=== PATIENT | male | born 1970 | race Caucasian/White ===

== ENCOUNTER → 2016-09-20 | Outpatient (REF) | payer MEDICAID ==
[~2016-09-20] MED LIST: ASPI81CH PO; GUAI1TAB PO; LISI-538 PO; MUCI600T34 PO; NAPR500T PO; NAPR500T2 PO; QUET1TAB11 PO; SERT50TA PO; SIMV40TA2 PO; TRAZ300T2 PO; ZOLO100T PO; cogentin PO
== END ==
LOC: M LAB REF 13:03
PROVIDERS: ATTEND Nurse Practitioner Family
DX: R35.0 Frequency of micturition (principal)

== ENCOUNTER → 2016-09-28 | Outpatient (REF) | payer MEDICAID ==
[2016-09-28 13:25] LABS: MEAN CORPUSCULAR HEMOGLOBIN 30.5 pg (27.0-33.0); MEAN CORPUSCULAR HGB CONC 34.2 g/dl (32.0-36.5); MEAN CORPUSCULAR VOLUME 89.3 fl (80.0-96.0); RED CELL DISTRIBUTION WIDTH 12.6 % (11.5-14.5); WHITE BLOOD COUNT 7.3 K/mm3 (4.0-10.0)
[2016-09-28 13:46] LABS: ALBUMIN 3.8 GM/DL (3.2-5.2); ALBUMIN/GLOBULIN RATIO 1.23 (1.00-1.93); ALKALINE PHOSPHATASE 89 U/L (45-117); ALT/SGPT 29 U/L (12-78); ANION GAP 7 MEQ/L (8-16); AST/SGOT 13 U/L (15-37); BILIRUBIN,TOTAL 0.3 MG/DL (0.2-1.0); BLOOD UREA NITROGEN 17 MG/DL (7-18); CALCIUM LEVEL 9.1 MG/DL (8.5-10.1); CARBON DIOXIDE LEVEL 26 MEQ/L (21-32); CHLORIDE LEVEL 106 MEQ/L (98-107); CHOLESTEROL LEVEL 143 MG/DL (<200); CREATININE FOR GFR 0.95 MG/DL (0.70-1.30); GLOMERULAR FILTRATION RATE > 60.0 (>60); GLUCOSE, FASTING 87 MG/DL (70-105); POTASSIUM SERUM 4.4 MEQ/L (3.5-5.1); SODIUM LEVEL 139 MEQ/L (136-145); TOTAL PROTEIN 6.9 GM/DL (6.4-8.2); TRIGLYCERIDES LEVEL 238 MG/DL (<150)
== END ==
LOC: M LABDRAWC 12:02
PROVIDERS: ATTEND Nurse Practitioner Family
DX: R35.0 Frequency of micturition (principal); R63.5 Abnormal weight gain; R51 Headache; E55.9 Vitamin D deficiency, unspecified; Z11.3 Encounter for screening for infections with a predominantly sexual mode of transmission
CPT/HCPCS: 36415; 80053; 80061; 82306; 84443; 85027; 86780; 86803; 87086; 87491; 87591; 87899; G0103

== ENCOUNTER → 2017-01-16 | Outpatient (REF) | payer OTHER ==
[~2017-01-16] MED LIST changes: -MUCI600T34 PO; +MUCI600T37 PO; -NAPR500T2 PO; +NAPR500T3 PO; -QUET1TAB11 PO; +QUET400T PO
== END ==
LOC: M LABDRAWC 11:22
PROVIDERS: ATTEND Nurse Practitioner Psychiatric/Mental Health
DX: F20.0 Paranoid schizophrenia (principal); Z79.899 Other long term (current) drug therapy

== ENCOUNTER → 2017-09-26 | Outpatient (REF) | payer OTHER, MEDICAID ==
[2017-09-26 17:16] LABS: BLOOD UREA NITROGEN 17 MG/DL (7-18); CREATININE FOR GFR 0.86 MG/DL (0.70-1.30); GLOMERULAR FILTRATION RATE > 60.0 (>60); GLUCOSE, FASTING 74 MG/DL (70-100)
[2017-09-26 17:17] LABS: ALBUMIN 4.1 GM/DL (3.2-5.2); ALBUMIN/GLOBULIN RATIO 1.28 (1.00-1.93); ALKALINE PHOSPHATASE 89 U/L (45-117); ALT/SGPT 32 U/L (12-78); ANION GAP 8 MEQ/L (8-16); AST/SGOT 21 U/L (7-37); BILIRUBIN,TOTAL 0.4 MG/DL (0.2-1.0); CALCIUM LEVEL 9.2 MG/DL (8.5-10.1); CARBON DIOXIDE LEVEL 27 MEQ/L (21-32); CHLORIDE LEVEL 106 MEQ/L (98-107); CHOLESTEROL LEVEL 141 MG/DL (<200); HDL CHOLESTEROL 30 MG/DL (>40); LDL CHOLESTEROL 61.4 MG/DL (<100); NON-HDL-C 111 MG/DL; POTASSIUM SERUM 4.2 MEQ/L (3.5-5.1); SODIUM LEVEL 141 MEQ/L (136-145); TOTAL PROTEIN 7.3 GM/DL (6.4-8.2); TRIGLYCERIDES LEVEL 248 MG/DL (<150)
[2017-09-26 17:22] LABS: ESTIMATED AVERAGE GLUCOSE 114 MG/DL (60-110); HEMOGLOBIN A1c 5.6 %
== END ==
LOC: M LAB REF 16:24
DX: E78.5 Hyperlipidemia, unspecified (principal); I10 Essential (primary) hypertension

== ENCOUNTER → 2018-06-30 | Outpatient (CLI) | payer MEDICAID, OTHER ==
[~2018-06-30] MED LIST changes: +NAPR-50 PO; +NAPR-885 PO; -NAPR500T PO; -NAPR500T3 PO
[2018-06-30 08:04] LABS: CHOLESTEROL RISK RATIO 5.692 (<5)
[2018-06-30 11:44] LABS: HEMOGLOBIN A1c 5.7 %
== END ==
LOC: M LAB 06:33
PROVIDERS: ATTEND Nurse Practitioner Psychiatric/Mental Health
DX: E78.5 Hyperlipidemia, unspecified (principal)

== ENCOUNTER → 2018-06-30 | Outpatient (CLI) | payer MEDICAID, OTHER ==
[2018-06-30 07:43] LABS: BASO # 0.1 10^3/uL (0.0-0.2); BASO % 0.9 % (0.0-1.0); EOS # 0.3 10^3/uL (0.0-0.50); EOS % 4.4 % (0.0-3.0); HEMATOCRIT 43.5 % (42.0-52.0); HEMOGLOBIN 14.6 g/dl (13.5-17.5); LYMPH # 1.5 10^3/uL (1.5-4.5); LYMPH % 21.7 % (24.0-44.0); MEAN CORPUSCULAR HEMOGLOBIN 29.3 pg (27.0-33.0); MEAN CORPUSCULAR HGB CONC 33.6 g/dl (32.0-36.5); MEAN CORPUSCULAR VOLUME 87.2 fl (80.0-96.0); MONO # 0.7 10^3/uL (0.0-0.8); MONO % 9.5 % (0.0-5.0); NEUTROPHILS # 4.3 10^3/uL (1.8-7.7); NEUTROPHILS % 63.1 % (36.0-66.0); PLATELET COUNT, AUTOMATED 279 10^3/uL (150-450); RED BLOOD COUNT 4.99 10^6/uL (4.30-6.10); WHITE BLOOD COUNT 6.9 10^3/uL (4.0-10.0)
[2018-06-30 08:13] LABS: ALBUMIN 3.9 GM/DL (3.2-5.2); ALT/SGPT 23 U/L (12-78); BILIRUBIN,TOTAL 0.4 MG/DL (0.2-1.0); BLOOD UREA NITROGEN 18 MG/DL (7-18); CALCIUM LEVEL 8.9 MG/DL (8.5-10.1); CARBON DIOXIDE LEVEL 28 MEQ/L (21-32); CHLORIDE LEVEL 104 MEQ/L (98-107); CHOLESTEROL LEVEL 146 MG/DL (<200); CHOLESTEROL RISK RATIO 5.407 (<5); CREATININE FOR GFR 0.82 MG/DL (0.70-1.30); GLOMERULAR FILTRATION RATE > 60.0 (>60); GLUCOSE, FASTING 89 MG/DL (70-100); HDL CHOLESTEROL 27 MG/DL (>40); LDL CHOLESTEROL 78 MG/DL (<100); NON-HDL-C 119 MG/DL; POTASSIUM SERUM 4.4 MEQ/L (3.5-5.1); SODIUM LEVEL 137 MEQ/L (136-145); THYROID STIMULATING HORMONE 0.534 uIU/ML (0.358-3.740); TOTAL PROTEIN 7.2 GM/DL (6.4-8.2); TRIGLYCERIDES LEVEL 205 MG/DL (<150)
[2018-06-30 09:45] LABS: TOTAL 25(OH) VITAMIN D 25.6 NG/ML (30.0-100.0)
[2018-06-30 11:45] LABS: HEMOGLOBIN A1c 5.7 %
== END ==
LOC: M LAB 06:39
PROVIDERS: ATTEND Nurse Practitioner Family
DX: Z13.9 Encounter for screening, unspecified (principal); E55.9 Vitamin D deficiency, unspecified; I10 Essential (primary) hypertension; E78.5 Hyperlipidemia, unspecified

== ENCOUNTER → 2018-10-29 | Outpatient (CLI) | payer MEDICAID ==
[~2018-10-29] MED LIST changes: -ASPI81CH PO; +ASPI81CH49 PO; -NAPR-50 PO; +NAPR-837 PO; +SERT-141 PO; -SERT50TA PO
[2018-10-29 08:38] LABS: BASO # 0.1 10^3/uL (0.0-0.2); BASO % 1.1 % (0.0-1.0); EOS # 0.2 10^3/uL (0.0-0.50); EOS % 2.4 % (0.0-3.0); HEMOGLOBIN 14.3 g/dl (13.5-17.5); LYMPH # 1.5 10^3/uL (1.5-4.5); LYMPH % 21.1 % (24.0-44.0); MEAN CORPUSCULAR HEMOGLOBIN 30.9 pg (27.0-33.0); MEAN CORPUSCULAR HGB CONC 34.9 g/dl (32.0-36.5); MEAN CORPUSCULAR VOLUME 88.6 fl (80.0-96.0); MONO # 0.6 10^3/uL (0.0-0.8); MONO % 8.1 % (0.0-5.0); NEUTROPHILS # 4.8 10^3/uL (1.8-7.7); NEUTROPHILS % 66.5 % (36.0-66.0); PLATELET COUNT, AUTOMATED 269 10^3/uL (150-450); RED BLOOD COUNT 4.63 10^6/uL (4.30-6.10); WHITE BLOOD COUNT 7.2 10^3/uL (4.0-10.0)
[2018-10-29 09:09] LABS: ALBUMIN 4.1 GM/DL (3.2-5.2); ALT/SGPT 25 U/L (12-78); BILIRUBIN,TOTAL 0.3 MG/DL (0.2-1.0); BLOOD UREA NITROGEN 18 MG/DL (7-18); CALCIUM LEVEL 9.3 MG/DL (8.5-10.1); CARBON DIOXIDE LEVEL 28 MEQ/L (21-32); CHLORIDE LEVEL 106 MEQ/L (98-107); CHOLESTEROL LEVEL 140 MG/DL (<200); CHOLESTEROL RISK RATIO 5.185 (<5); CREATININE FOR GFR 0.88 MG/DL (0.70-1.30); GLOMERULAR FILTRATION RATE > 60.0 (>56); GLUCOSE, FASTING 86 MG/DL (70-100); HDL CHOLESTEROL 27 MG/DL (>40); LDL CHOLESTEROL 69 MG/DL (<100); NON-HDL-C 113 MG/DL; POTASSIUM SERUM 4.4 MEQ/L (3.5-5.1); SODIUM LEVEL 140 MEQ/L (136-145); TOTAL PROTEIN 7.4 GM/DL (6.4-8.2); TRIGLYCERIDES LEVEL 221 MG/DL (<150)
[2018-10-29 10:40] LABS: HEMOGLOBIN A1c 5.6 %
== END ==
LOC: M LAB 07:51
PROVIDERS: ATTEND Nurse Practitioner Family
DX: I10 Essential (primary) hypertension (principal); E78.5 Hyperlipidemia, unspecified; R73.03 Prediabetes

== ENCOUNTER → 2019-01-27 | Outpatient (CLI) | payer MEDICAID ==
--- NOTE | 2019-01-27 11:46 | REP ---
Right foot: Four views. History: Pain in the right ankle and foot. Injury in a fall. There is a comparison radiographic study of the right foot from September 20, 2012. Findings: Four views right foot demonstrate a transversely oriented nondisplaced fracture through the proximal end of the fifth metatarsal with associated soft-tissue swelling. There is Achilles and plantar calcaneal spurring. No other acute fracture is seen. Impression: Proximal fifth metatarsal fracture nondisplaced. Electronically Signed by Laith Johnston MD 01/27/2019 06:45 P
== END ==
LOC: M RAD 07:37
PROVIDERS: ATTEND Nurse Practitioner Family
DX: M25.471 Effusion, right ankle (principal); S92.354A Nondisplaced fracture of fifth metatarsal bone, right foot, initial encounter for closed fracture; X58.XXXA Exposure to other specified factors, initial encounter; Y92.9 Unspecified place or not applicable; M77.31 Calcaneal spur, right foot

== ENCOUNTER → 2019-02-02 | Outpatient (REF) | payer MEDICAID ==
[2019-02-02 13:38] LABS: BASO # 0.1 10^3/uL (0.0-0.2); BASO % 0.9 % (0.0-1.0); EOS # 0.2 10^3/uL (0.0-0.5); EOS % 2.4 % (0.0-3.0); HEMATOCRIT 43.7 % (42.0-52.0); HEMOGLOBIN 14.8 g/dl (13.5-17.5); LYMPH # 1.6 10^3/uL (1.5-5.0); LYMPH % 23.6 % (24.0-44.0); MEAN CORPUSCULAR HEMOGLOBIN 30.9 pg (27.0-33.0); MEAN CORPUSCULAR HGB CONC 33.9 g/dl (32.0-36.5); MEAN CORPUSCULAR VOLUME 91.2 fl (80.0-96.0); MONO # 0.5 10^3/uL (0.0-0.8); MONO % 8.2 % (0.0-5.0); NEUTROPHILS # 4.2 10^3/uL (1.5-8.5); NEUTROPHILS % 64.4 % (36.0-66.0); PLATELET COUNT, AUTOMATED 269 10^3/uL (150-450); RED BLOOD COUNT 4.79 10^6/uL (4.30-6.10); WHITE BLOOD COUNT 6.6 10^3/uL (4.0-10.0)
[2019-02-02 13:46] LABS: ALT/SGPT 34 U/L (12-78); BILIRUBIN,TOTAL 0.3 MG/DL (0.2-1.0); BLOOD UREA NITROGEN 22 MG/DL (7-18); CARBON DIOXIDE LEVEL 32 MEQ/L (21-32); CHLORIDE LEVEL 107 MEQ/L (98-107); CHOLESTEROL LEVEL 151 MG/DL (<200); CHOLESTEROL RISK RATIO 4.575 (<5); CREATININE FOR GFR 0.84 MG/DL (0.70-1.30); GLOMERULAR FILTRATION RATE > 60.0 (>56); GLUCOSE, FASTING 96 MG/DL (70-100); HDL CHOLESTEROL 33 MG/DL (>40); LDL CHOLESTEROL 93 MG/DL (<100); NON-HDL-C 118 MG/DL; POTASSIUM SERUM 4.9 MEQ/L (3.5-5.1); SODIUM LEVEL 142 MEQ/L (136-145); TOTAL PROTEIN 7.1 GM/DL (6.4-8.2); TRIGLYCERIDES LEVEL 124 MG/DL (<150)
[2019-02-02 13:52] LABS: TOTAL 25(OH) VITAMIN D 25.6 NG/ML (30.0-100.0)
[2019-02-02 13:57] LABS: HEMOGLOBIN A1c 5.2 %
== END ==
LOC: M LAB REF 12:27
PROVIDERS: ATTEND Nurse Practitioner Family
DX: I10 Essential (primary) hypertension (principal); E78.5 Hyperlipidemia, unspecified; R73.03 Prediabetes

== ENCOUNTER 2019-02-19 10:23 | Emergency (ER) | payer MEDICAID ==
[2019-02-19] MEDS ORDERED: FLON1SPR NARES (10:52)
[2019-02-19] MEDS ORDERED: SIMV10TA2 PO (10:52)
[2019-02-19] MEDS ORDERED: VITMTA PO (10:52)
[2019-02-19] MEDS ORDERED: OMEP20CA4 PO (10:52)
[2019-02-19] MEDS ORDERED: GABA800T4 PO (10:52)
[2019-02-19] MEDS ORDERED: ASPI81TA26 PO (10:52)
[2019-02-19] MEDS ORDERED: INVE1.31 IM (10:52)
[2019-02-19] MEDS ORDERED: INGR80CA PO (10:52)
--- NOTE | 2019-02-19 11:27 | REP ---
CT brain: 02/19/2019. Indication: Facial droop. Stroke. Comparison: 04/08/2015. Technique: Unenhanced axial CT images of the brain were obtained from skull base to vertex. Findings: Image quality is degraded by patient motion. There is no evidence of acute intracranial hemorrhage, acute cortical infarction or hydrocephalous. Mild diffuse volume loss is present. Chronic-appearing right basal ganglia lacunar infarction is noted. Impression: No acute intracranial process. Electronically Signed by José Luis Mills DO 02/19/2019 11:19 A
[2019-02-19] MEDS ORDERED: PENI500T PO (11:51)
[2019-02-19 12:27] VITALS: BP 124/81
== END 2019-02-19 12:32 | disposition home or self-care (01) ==
LOC: M ED 10:23 → EDBD 10:23 → M ED 12:32
DX: K04.7 Periapical abscess without sinus (principal); K02.9 Dental caries, unspecified; I10 Essential (primary) hypertension; E78.5 Hyperlipidemia, unspecified; F32.9 Major depressive disorder, single episode, unspecified; Z86.79 Personal history of other diseases of the circulatory system; F17.200 Nicotine dependence, unspecified, uncomplicated; Z79.82 Long term (current) use of aspirin; Z79.899 Other long term (current) drug therapy

== ENCOUNTER 2019-04-22 11:31 | Emergency (ER) | payer MEDICAID ==
[~2019-04-22] VITALS: Ht 175.3 cm; Wt 103.2 kg
[~2019-04-22 11:31] MED LIST changes: +ASPI81TA26 PO; +FLON1SPR NARES; +GABA800T4 PO; +INGR80CA PO; +INVE1.31 IM; +OMEP-172 PO; +PENI500T PO; +SIMV10TA21 PO; -SIMV40TA2 PO; +SIMV40TA20 PO; +VITMTA PO
[2019-04-22] MEDS ORDERED: INVE0.87 IM (11:39)
[2019-04-22 13:47] VITALS: BP 110/63
== END 2019-04-22 13:49 | disposition home or self-care (01) ==
LOC: M ED 11:31
DX: S39.012A Strain of muscle, fascia and tendon of lower back, initial encounter (principal); W10.9XXA Fall (on) (from) unspecified stairs and steps, initial encounter; Y92.099 Unspecified place in other non-institutional residence as the place of occurrence of the external cause; Y93.89 Activity, other specified; Y99.9 Unspecified external cause status; I10 Essential (primary) hypertension; E78.5 Hyperlipidemia, unspecified; F32.9 Major depressive disorder, single episode, unspecified; F17.200 Nicotine dependence, unspecified, uncomplicated; Z79.82 Long term (current) use of aspirin; Z79.899 Other long term (current) drug therapy

== ENCOUNTER → 2019-06-17 | Outpatient (CLI) | payer MEDICAID ==
[~2019-06-17] MED LIST changes: +INVE0.87 IM; -OMEP-172 PO; +OMEP1CAP73 PO
[2019-06-19 14:07] LABS: VITAMIN D 1,25 DIHYDROXY 49.4 pg/mL (19.9-79.3)
== END ==
LOC: M LAB 06:26
PROVIDERS: ATTEND Orthopaedic Surgery
DX: S92.351G Displaced fracture of fifth metatarsal bone, right foot, subsequent encounter for fracture with delayed healing (principal); X58.XXXD Exposure to other specified factors, subsequent encounter; Y92.9 Unspecified place or not applicable

== ENCOUNTER → 2020-03-04 | Outpatient (REF) | payer MEDICAID ==
[2020-03-04 17:20] LABS: BASO # 0.1 10^3/uL (0.0-0.2); BASO % 1.1 % (0.0-1.0); EOS # 0.1 10^3/uL (0.0-0.5); EOS % 1.7 % (0.0-3.0); HEMATOCRIT 42.9 % (42.0-52.0); HEMOGLOBIN 14.5 g/dl (13.5-17.5); LYMPH # 1.4 10^3/uL (1.5-5.0); LYMPH % 21.5 % (24.0-44.0); MEAN CORPUSCULAR HEMOGLOBIN 30.5 pg (27.0-33.0); MEAN CORPUSCULAR HGB CONC 33.8 g/dl (32.0-36.5); MEAN CORPUSCULAR VOLUME 90.3 fl (80.0-96.0); MONO # 0.5 10^3/uL (0.0-0.8); MONO % 8.5 % (0.0-5.0); NEUTROPHILS # 4.3 10^3/uL (1.5-8.5); NEUTROPHILS % 66.7 % (36.0-66.0); PLATELET COUNT, AUTOMATED 326 10^3/uL (150-450); RED BLOOD COUNT 4.75 10^6/uL (4.30-6.10); WHITE BLOOD COUNT 6.4 10^3/uL (4.0-10.0)
[2020-03-04 17:28] LABS: ALBUMIN 4.3 GM/DL (3.2-5.2); ALT/SGPT 21 U/L (12-78); BILIRUBIN,TOTAL 0.4 MG/DL (0.2-1.0); BLOOD UREA NITROGEN 17 MG/DL (7-18); CALCIUM LEVEL 9.6 MG/DL (8.5-10.1); CARBON DIOXIDE LEVEL 29 MEQ/L (21-32); CHLORIDE LEVEL 105 MEQ/L (98-107); CHOLESTEROL LEVEL 196 MG/DL (<200); CREATININE FOR GFR 0.96 MG/DL (0.70-1.30); GLOMERULAR FILTRATION RATE > 60.0 (>56); GLUCOSE, FASTING 87 MG/DL (70-100); HDL CHOLESTEROL 35 MG/DL (>40); LDL CHOLESTEROL 135 MG/DL (<100); NON-HDL-C 161 MG/DL; POTASSIUM SERUM 4.6 MEQ/L (3.5-5.1); SODIUM LEVEL 139 MEQ/L (136-145); TOTAL PROTEIN 7.4 GM/DL (6.4-8.2); TRIGLYCERIDES LEVEL 129 MG/DL (<150)
[2020-03-04 17:33] LABS: TOTAL 25(OH) VITAMIN D 53.1 NG/ML (30.0-100.0)
[2020-03-04 17:40] LABS: HEMOGLOBIN A1c 5.2 %
== END ==
LOC: M LAB REF 16:36
PROVIDERS: ATTEND Nurse Practitioner Family
DX: R73.03 Prediabetes (principal); Z13.9 Encounter for screening, unspecified; I10 Essential (primary) hypertension; Z72.0 Tobacco use; E55.9 Vitamin D deficiency, unspecified; E66.9 Obesity, unspecified; F32.9 Major depressive disorder, single episode, unspecified

== ENCOUNTER 2020-04-09 10:42 | Emergency (ER) | payer MEDICAID ==
[~2020-04-09] VITALS: Ht 175.3 cm; Wt 98.2 kg
[2020-04-09] MEDS ORDERED: PROT1TAB2 PO (11:08)
--- NOTE | 2020-04-09 12:11 | REP ---
INDICATION: S/P FALL COMPARISON: None. TECHNIQUE: Two views of the left humerus. FINDINGS: Comminuted shattered fracture of the proximal humeral shaft noted. IMPRESSION: Comminuted fracture of the proximal humeral shaft.. <Electronically signed by George Mathias > 04/09/20 [id number]
--- NOTE | 2020-04-09 12:16 | REP ---
INDICATION: S/P FALL COMPARISON: None. TECHNIQUE: AP, lateral views of the left forearm. FINDINGS: The osseous structures and joint spaces are intact and normal. There is no evidence for acute fracture or dislocation. Surrounding soft tissues are unremarkable. No subcutaneous emphysema or radiodense foreign body. IMPRESSION: . No acute fracture or dislocation. <Electronically signed by George Mathias > 04/09/20 [id number]
--- NOTE | 2020-04-09 13:16 | REP ---
INDICATION: fell COMPARISON: None. TECHNIQUE: Two views of the left shoulder FINDINGS: There is a comminuted displaced fracture involving the proximal humeral shaft with overlying soft tissue swelling. The acromioclavicular and glenohumeral joints appear relatively intact. IMPRESSION: 1. Comminuted fracture of the proximal humeral shaft. 2. Relatively normal appearance to the acromioclavicular and glenohumeral joints. <Electronically signed by George Mathias > 04/09/20 [id number]
--- NOTE | 2020-04-09 13:20 | REP ---
INDICATION: fell COMPARISON: None. TECHNIQUE: AP, lateral, bilateral oblique views of the left elbow. FINDINGS: No acute fracture or dislocation is appreciated. Joint spaces and surrounding soft tissues appear normal. Lateral view demonstrates normal positioning to the anterior and posterior fat pads without evidence for effusion/hemarthrosis. No subcutaneous emphysema or foreign body identified. IMPRESSION: Normal elbow radiographs. <Electronically signed by George Mathias > 04/09/20 [id number]
[2020-04-09 13:43] LABS: RSV AMPLIFICATION NEGATIVE (NEGATIVE)
[2020-04-09 18:28] VITALS: BP 111/69
--- NOTE | 2020-04-09 18:30 | REP ---
INDICATION: post splint COMPARISON: None. TECHNIQUE: Single portable axillary view of the left shoulder FINDINGS: A comminuted fracture of the proximal humeral shaft is again noted. The glenohumeral joint appears intact. IMPRESSION: Comminuted fracture of the proximal humeral shaft. Glenohumeral joint is grossly intact.. <Electronically signed by George Mathias > 04/09/20 [id number]
--- NOTE | 2020-04-09 18:31 | REP ---
INDICATION: post splint COMPARISON: None. TECHNIQUE: Four views of the left humerus. FINDINGS: Patient is status post splint placement. Comminuted fracture of the proximal humeral shaft again noted. Glenohumeral joint and elbow joint appear intact. IMPRESSION: Comminuted fracture of the proximal humeral shaft. <Electronically signed by George Mathias > 04/09/20 0019
--- NOTE | 2020-04-10 09:43 | CR ---
CONSULTATION DATE: 04/09/2020 CONSULTING SERVICE: Orthopedic surgery. CONSULTING PHYSICIAN: Robert Matt M.D. HISTORY OF PRESENT ILLNESS: This is a 49-year-old male who is a community ambulator. The patient resides in a health care facility to assist with his demented mental faculties. The patient apparently sustained a ground level fall, which was unwitnessed, two days prior on 04/07/2020. [employer] Dispatcher noticed the patient had appreciable ecchymosis about the left upper extremity and the patient at that point admitted to a fall two days prior. The patient was seen in the [facility] Emergency Department for further treatment of his left proximal humerus fracture. The patient underwent the appropriate radiographs of the left shoulder, left humerus, and left elbow for the aforementioned injury. Orthopedic surgery was consulted for evaluation and treatment of his left proximal humeral shaft closed fracture. PAST MEDICAL HISTORY: 1. Atrial fibrillation. 2. Hypertension. 3. Hyperlipidemia. 4. Demented mental faculties. PAST SURGICAL HISTORY: Cardiac ablation for atrial fibrillation. MEDICATION ALLERGIES: The patient denies. CURRENT MEDICATIONS: - aspirin - gabapentin - lisinopril - omeprazole - sertraline - simvastatin SOCIAL HISTORY: The patient is a nondrinker and non-IV drug user; however, he is a half-pack a day smoker for 20 years. REVIEW OF SYSTEMS: 14-point review of systems was negative unless otherwise described in the HPI above. PHYSICAL EXAMINATION: GENERAL APPEARANCE: The patient was alert to person, time, and place. EXTREMITIES: On left upper extremity exam, the patient had ecchymosis about the left upper extremity and a palpable deformity about the proximal left humeral shaft. The patient was otherwise neurovascular intact to the left upper extremity. He had a 2+ radial and ulnar pulse. Brisk capillary refill to the digits of the left hand. He had 5/5 motor function to the musculocutaneous, axillary, radial, median and ulnar nerve distributions. He had sensation intact to light touch to the musculocutaneous, axillary, radial, median, and ulnar nerve distributions as well. The patient had a palpable deformity about the left upper arm. There were no skin breaks. No lacerations appreciated. The patient was unable to abduct his arm given his proximal humerus fracture, limited, and guarded secondary to pain; however, he was able to fire his deltoid muscle. IMAGING: Left shoulder imaging demonstrated an axillary view, which demonstrated the glenohumeral joint was reduced. AP and lateral shoulder demonstrated a comminuted proximal humeral shaft fracture with two large butterfly fragments. Humerus x-ray demonstrated left proximal humerus fracture with two large butterfly fragments with significant comminution. Post-reduction radiographs demonstrated acceptable mechanical alignment of the humeral shaft. IMPRESSION: This is a low-functioning 49-year-old male who had a left proximal humeral shaft fracture of the left upper extremity. PLAN: Given the patient's functional status, as well as the location of his fracture which is a humeral shaft fracture and his smoking history, this patient is a good candidate for a trial of nonoperative treatment. The patient was placed in a co-aptation splint in order to hold the humeral fracture in acceptable mechanical alignment in the coronal and sagittal planes. The patient will transition to a functional brace in 7-9 days and at that point once his functional braced is fitted, we will initiate left shoulder rehabilitation to include pendulum swings. The patient will be range of motion of the left elbow as tolerated in his co-aptation splint. He will follow-up with [facility] in 10-14 days for repeat radiographs to ensure the patient's fracture is maintaining acceptable alignment. If the fracture maintains reduction, I believe he is a good candidate for nonoperative treatment with functional bracing. The patient lives in an assisted living home, has a 20-pack year history of smoking, and has low functional demands.
== END 2020-04-09 18:31 | disposition home or self-care (01) ==
LOC: M ED 10:42
DX: S42.202A Unspecified fracture of upper end of left humerus, initial encounter for closed fracture (principal); W19.XXXA Unspecified fall, initial encounter; Y92.89 Other specified places as the place of occurrence of the external cause; Y93.9 Activity, unspecified; Y99.9 Unspecified external cause status; I48.91 Unspecified atrial fibrillation; I10 Essential (primary) hypertension; E78.5 Hyperlipidemia, unspecified; F41.9 Anxiety disorder, unspecified; F32.9 Major depressive disorder, single episode, unspecified; F17.200 Nicotine dependence, unspecified, uncomplicated; Z79.82 Long term (current) use of aspirin; Z79.899 Other long term (current) drug therapy

== ENCOUNTER 2020-05-12 13:59 | Outpatient (RCR) | payer MEDICAID ==
[~2020-05-12 13:59] MED LIST changes: +PROT1TAB2 PO
== END 2020-05-15 ==
LOC: M PT 13:59
PROVIDERS: ATTEND Nurse Practitioner Family
DX: R26.9 Unspecified abnormalities of gait and mobility (principal)

== ENCOUNTER 2020-06-07 10:45 | Outpatient (RCR) | payer MEDICAID ==
[~2020-06-07 10:45] MED LIST changes: -LISI-538 PO; +LISI20TA33 PO
== END 2020-06-12 ==
LOC: M PT 10:45
PROVIDERS: ATTEND Nurse Practitioner Family
DX: R26.9 Unspecified abnormalities of gait and mobility (principal)

== ENCOUNTER → 2020-07-19 | Outpatient (CLI) | payer MEDICAID ==
[2020-07-19 17:37] LABS: HEMATOCRIT 37.2 % (42.0-52.0); HEMOGLOBIN 12.1 g/dl (13.5-17.5); MEAN CORPUSCULAR HGB CONC 32.5 g/dl (32.0-36.5); MEAN CORPUSCULAR VOLUME 89.2 fl (80.0-96.0); PLATELET COUNT, AUTOMATED 307 10^3/uL (150-450); RED BLOOD COUNT 4.17 10^6/uL (4.30-6.10); WHITE BLOOD COUNT 5.4 10^3/uL (4.0-10.0)
[2020-07-19 18:11] LABS: ERYTHROCYTE SEDIMENTATION RATE 30 mm/hr (0-20)
== END ==
LOC: M WUC 11:13
PROVIDERS: ATTEND Physician Assistant
DX: S42.352A Displaced comminuted fracture of shaft of humerus, left arm, initial encounter for closed fracture (principal); Y92.89 Other specified places as the place of occurrence of the external cause; Y93.89 Activity, other specified; X58.XXXA Exposure to other specified factors, initial encounter; Y99.8 Other external cause status

== ENCOUNTER → 2020-08-17 | Outpatient (CLI) | payer MEDICAID ==
--- NOTE | 2020-08-17 19:03 | REP ---
INDICATION: LT HUMERUS SHAFT FX ? INFECTION PSEUDOARTHROSIS. COMPARISON: Radiographs 04/09/2020. TECHNIQUE: Multiple sequences obtained in the axial, coronal and sagittal planes. FINDINGS: This study is severely limited due to excessive patient motion. At the site of the previously noted comminuted fracture of the proximal 3rd of the humeral shaft there appears to be nonunion. There is no definite abnormal bone marrow signal of the visualized portions of the humerus. There is moderate fluid at the fracture site. No other obvious soft tissue abnormality is seen. IMPRESSION: Severely limited exam due to patient motion. There appears to be nonunion of the comminuted fracture of the proximal 3rd of the humerus. No definite abnormal bone marrow signal. Moderate fluid at that location, abscess is not excluded. <Electronically signed by Compa Enriquez > 08/17/20 [id number]
== END ==
LOC: M RAD 16:27
PROVIDERS: ATTEND Physician Assistant
DX: S42.352G Displaced comminuted fracture of shaft of humerus, left arm, subsequent encounter for fracture with delayed healing (principal); X58.XXXD Exposure to other specified factors, subsequent encounter; Y92.9 Unspecified place or not applicable

== ENCOUNTER → 2020-10-06 | Outpatient (CLI) | payer MEDICAID ==
--- NOTE | 2020-10-06 14:09 | DEXAMM ---
INDICATION: Z13.820 SCREENING FOR OSTEOPOROSIS. COMPARISON: None. TECHNIQUE: Bone density was measured using dual-energy x-ray absorptionmetry (DEXA). FINDINGS: AP SPINE L1-L4 BMD 1.476 g/cm2 Young Adult T-Score is 2.3 Age Matched Z-Score 2.2. LT FEMUR, TOTAL BMD 1.156 g/cm2 Young Adult T-Score 1.2 Age Matched Z-Score 0.7. LT NECK BMD 1.068 g/cm2 Young Adult T-Score 0.2 Age Matched Z-Score 0.7. RT FEMUR, TOTAL BMD 1.119 g/cm2 Young Adult T-Score 0.9 Age Matched Z-Score 0.5. RT NECK BMD 1.064 g/cm2 Young Adult T-Score 0.2 Age Matched Z-Score 0.6. IMPRESSION: There is normal bone density of the spine. There is normal bone density of the left hip. There is normal bone density of the right hip. FOLLOW-UP: Recommendation for the next bone density exam: 5-10 years. <Electronically signed by Rinku Johnston > 10/06/20 [id number]
== END ==
LOC: M WHC 13:04
PROVIDERS: ATTEND Nurse Practitioner Family
DX: Z13.820 Encounter for screening for osteoporosis (principal)

== ENCOUNTER → 2021-01-19 | Outpatient (CLI) | payer MEDICAID ==
[~2021-01-19] MED LIST changes: +AMAN100T PO; +DRIS50003 PO; +OMEP40CA4 PO; -QUET400T PO; +QUET400T2 PO
[2021-01-19 16:33] LABS: BASO # 0.1 10^3/uL (0.0-0.2); BASO % 0.9 % (0.0-1.0); EOS # 0.2 10^3/uL (0.0-0.5); EOS % 2.4 % (0.0-3.0); HEMATOCRIT 40.4 % (42.0-52.0); HEMOGLOBIN 13.5 g/dl (13.5-17.5); LYMPH # 1.4 10^3/uL (1.5-5.0); LYMPH % 21.4 % (24.0-44.0); MEAN CORPUSCULAR HEMOGLOBIN 30.1 pg (27.0-33.0); MEAN CORPUSCULAR HGB CONC 33.4 g/dl (32.0-36.5); MEAN CORPUSCULAR VOLUME 90.2 fl (80.0-96.0); MONO # 0.6 10^3/uL (0.0-0.8); MONO % 9.6 % (2.0-8.0); NEUTROPHILS # 4.3 10^3/uL (1.5-8.5); NEUTROPHILS % 64.8 % (36.0-66.0); PLATELET COUNT, AUTOMATED 282 10^3/uL (150-450); RED BLOOD COUNT 4.48 10^6/uL (4.30-6.10); WHITE BLOOD COUNT 6.6 10^3/uL (4.0-10.0)
[2021-01-19 20:12] LABS: ERYTHROCYTE SEDIMENTATION RATE 12 mm/hr (0-20)
== END ==
LOC: M WUC 11:19
PROVIDERS: ATTEND Physician Assistant Surgical
DX: S42.352K Displaced comminuted fracture of shaft of humerus, left arm, subsequent encounter for fracture with nonunion (principal); X58.XXXD Exposure to other specified factors, subsequent encounter; Y92.9 Unspecified place or not applicable; Y93.9 Activity, unspecified; Y99.9 Unspecified external cause status

== ENCOUNTER → 2021-01-25 | Outpatient (CLI) | payer MEDICAID | LOC: M LABSMTC 09:57 | PROVIDERS: ATTEND Anesthesiology | DX: Z01.812 Encounter for preprocedural laboratory examination (principal); Z20.822 Contact with and (suspected) exposure to COVID-19 ==

== ENCOUNTER 2021-01-30 07:50 | Day surgery (SDC) | payer MEDICAID ==
[~2021-01-30] VITALS: Ht 175.3 cm; Wt 87.9 kg
[~2021-01-30 07:50] MED LIST changes: +NS 1,000 ML IV ONE
--- OUTSIDE RECORDS SUMMARY | 2021-01-30 07:56 | CCD ---
Author Organization Unknown Address [address] [place] [address] Phone [phone] Care Team Providers Care Etiology Teacher Name Role Phone TODD HUBBARD MD 2 [phone] Allergies Code Code System Name Reaction Severity Status Onset NKDA Medications Name Status Start Date Stop Date administration flu ny USE DIRECTED Active Not available aspirin 81 mg chewable tablet Chew 1 tablet every day by oral route. Active Not available betamethasone valerate 0.1 % topical cre am APPLY A THIN LAYER TO THE AFFECTED AREA(S) BY TOPICAL ROUTE ONCE DAILY Active Not available Flonase Allergy Relief 50 mcg/actuation nasal spray,suspension Rudy 1 spray every day by intranasal route. Active Not available Fluzone Quad (PF) 60 mcg (15 m cg x 4)/0.5 mL IM syringe USE DIRECTED Active Not available gabapentin 800 mg tablet Take 1 tablet 3 times a day by oral route. Active Not available Ingrezza 80 mg capsule Take 1 capsule every day by oral route. Active Not available Invega Trinza 819 mg/2.625 mL intramuscu lar syringe INJECT 1 SYRINGE INTRAMUSCULARLY DIRECTED Active Not available lisinopril 20 mg tablet Take 1 tablet every day by oral route. Active Not available multivitamin tablet TAKE ONE TABLET BY MOUTH DAILY Active Not avai lable nicotine (polacrilex) 4 mg gum Chew 1 piece of gum every 2 hours by oral route as needed. Active Not available omeprazole 20 mg capsule,delayed release take one tablet by mouth daily in the AM Active Not available pantoprazole 20 mg tablet,delayed releas e take one by mouth once daily Active Not availa ble Prilosec OTC 20 mg tablet,delayed releas e take one tablet by mouth daily Completed 03/02/20 20 Seroquel 400 mg tablet Take 1 tablet twice a day by oral route. Active Not available sertraline 100 mg tablet Take 1 tablet every day by oral route. Active Not available simvastatin 10 mg tablet take one by mouth every morning Active Not edis ilable Vitamin D3 50 mcg (2,000 unit) tablet Take 1 tablet twice a day by oral route. Active Not available Problems Name Status Onset Date Source General Finding of Observation of Patient Active 2011 History Low Back Pain Active 05/30/2012 History Mental Disorder Active 12/23/2012 History Nicotine Dependence Active 02/01/2014 History Vitamin D Deficiency Active 08/12/2014 History Seasonal Allergic Rhinitis Active 02/02/2015 Histo ry Contact Dermatitis Active 09/20/2016 History Tobacco Use and Exposure - Finding Active 09/20/2016 History Syphilis Test Finding Active 09/20/2016 History Body Mass Index 30+ - Obesity Active 01/23/[address] Concept Active 09/26/2017 History Finding of Esophagus Active 03/31/2018 History Abnormal Weight Loss Active 06/19/2018 History Clinical Finding Active 06/19/2018 History Prediabetes Active 07/24/2018 History Screening Procedure Active 11/03/2018 History Impacted Cerumen of Bilateral Ears Active 11/03/2018 History Pharyngeal Finding Active 12/29/2018 History Finding of Ankle or Foot Active 01/26/2019 History Joint Finding Active 01/26/2019 History Under Immunized Active 01/26/2019 History Fracture of Foot Active 02/09/2019 History Fracture of Foot Active 03/23/2019 History Pain in Thoracic Spine Active 05/05/2019 History Finding of Neck Region Active 05/05/2019 History Disorder of Skin And/or Subcutaneous Tissue Active 10/14 History Procedure by Method Active 11/09/2019 History Abnormal Gait Active 05/02/2020 Fracture of Humerus Active 05/02/2020 Screening for Malignant Neoplasm of Colon Active 2020 Screening for Osteoporosis Active 05/02/2020 Patient Asked to Attend Active 05/02/2020 Hyperlipidemia Active History Depressive Disorder Active History Hypertensive Disorder Active History Procedures Date Name Performed by 04/28/2020 DEXA, Axial Skeleton + Vertebral Fractur e Assessment Information not available 11/11/2020 LDCT, Chest, for Lung Cancer Screening [facility] Oncology/Radiology [address], [place] [id number] (Work Place) Notes: No known surgical history Results Lab Results Date Name Specimen Result Interpretation Description Value Range Status Address 08/30/2020 Lipid Panel, Blood Blood venous Cholesterol , Total 174 mg/dL <200 mg/dL Final [facility]: [address] [facility] Blood venous Low HDL Cholesterol 33 mg/dL > or = 40 mg/dL [facility]: [address] [facility] Blood venous High Triglycerides 181 mg/dL <150 mg/dL [facility]: [address] [facility] Blood venous High LDL-cholesterol 111 mg/d L (calc) <100 mg/dL (calc) [facility]: [address] [facility] Blood venous High Chol/hdlc Ratio 5.3 calc <5.0 calc Final [facility]: [address] [facility] Blood venous High Non HDL Cholesterol 141 mg/dL (calc) <130 mg/dL (calc) Final [facility]: [address] [facility] 08/30/2020 CMP, Serum or Plasma Blood venous Normal Glucose 90 mg/dL 65-99 mg/dL Final [facility]: [address] [facility] Blood venous Normal Urea Nitrogen (BUN) 18 mg/dL 7-25 mg/dL Final [facility]: [address] [facility] Blood venous Normal Creatinine 0.85 mg/dL 0.70-1. 33 mg/dL [facility]: [address] [facility] Blood venous Normal eGFR Non-afr. Hungarian 1 01 mL/min/1.73m2 > or = 60 mL/min/1.73m2 Final [facility]: [address] [facility] Blood venous Normal eGFR 11 7 mL/min/1.73m2 > or = 60 mL/min/1.73m2 Final [facility]: [address] [facility] Blood venous BUN/creatinine Ratio not applicable (calc) 6-22 (calc) [facility]: [address] [facility] Blood venous Normal Sodium 140 mmol/L 135-146 mmo l/L [facility]: [address] [facility] Blood venous Normal Potassium 4.7 mmol/L 3.5-5.3 mmol/L [facility]: [address] [facility] Blood venous Normal Chloride 101 mmol/L 98-110 mm ol/L [facility]: [address] [facility] Blood venous Normal Carbon Dioxide 26 mmol/L 20-3 2 mmol/L Final [facility]: [address] [facility] Blood venous Normal Calcium 9.9 mg/dL 8.6-10.3 mg /dL [facility]: [address] [facility] Blood venous Normal Protein, Total 7.2 g/dL 6.1-8 .1 g/dL [facility]: [address] [facility] Blood venous Normal Albumin 4.7 g/dL 3.6-5.1 g/dL [facility]: [address] [facility] Blood venous Normal Globulin 2.5 g/dL (calc) 1.9- 3.7 g/dL (calc) [facility]: [address] [facility] Blood venous Normal Albumin/globulin Ratio 1 .9 (calc) 1.0-2.5 (calc) [facility]: [address] [facility] Blood venous Normal Bilirubin, Total 0.4 mg/dL 0. 2-1.2 mg/dL Final [facility]: [address] [facility] Blood venous Normal Alkaline Phosphatase 139 U/L 35-144 U/L [facility]: [address] [facility] Blood venous Normal Ast 19 U/L 10-35 U/L [facility]: [address] [facility] Blood venous Normal Alt 14 U/L 9-46 U/L Final [facility]: [address] [facility] 08/30/2020 CBC W/ Auto Diff Blood venous Normal White B lood Cell Count 8.5 thousand/uL 3.8-10.8 thousand/uL [facility]: [address] [facility] Blood venous Normal Red Blood Cell Count 4.6 3 million/uL 4.20-5.80 million/uL [facility]: [address] [facility] Blood venous Normal Hemoglobin 14.1 g/dL 13.2-17. 1 g/dL [facility]: [address] [facility] Blood venous Normal Hematocrit 40.6 % 38.5-50.0 % [facility]: [address] [facility] Blood venous Normal Mcv 87.7 fL 80.0-100.0 fL Fi [facility]: [address] [facility] Blood venous Normal Mch 30.5 pg 27.0-33.0 pg Fin [facility]: [address] [facility] Blood venous Normal Mchc 34.7 g/dL 32.0-36.0 g/dL [facility]: [address] [facility] Blood venous Normal Rdw 14.3 % 11.0-15.0 % [facility]: [address] [facility] Blood venous Normal Platelet Count 369 thous and/uL 140-400 thousand/uL [facility]: [address] [facility] Blood venous Normal Mpv 10.3 fL 7.5-12.5 fL [facility]: [address] [facility] Blood venous Normal Absolute Neutrophils 629 0 cells/uL 7608-2762 cells/uL [facility] gh: [address] [facility] Blood venous Normal Absolute Lymphocytes 139 4 cells/uL 850-3900 cells/uL [facility]: [address] [facility] Blood venous Normal Absolute Monocytes 655 c ells/uL 200-950 cells/uL [facility]: [address] [facility] Blood venous Normal Absolute Eosinophils 111 cells/uL 15-500 cells/uL [facility]: [address] [facility] Blood venous Normal Absolute Basophils 51 ce lls/uL 0-200 cells/uL [facility]: [address] [facility] Blood venous Normal Neutrophils 74 % 38-80 % Fi [facility]: [address] [place] [facility] Blood venous Normal Lymphocytes 16.4 % 15-49 % Fi [facility]: [address] [facility] Blood venous Normal Monocytes 7.7 % 0-13 % [facility]: [address] [facility] Blood venous Normal Eosinophils 1.3 % 0-8 % Fin [facility]: [address] [facility] Blood venous Normal Basophils 0.6 % 0-2 % [facility]: [facility] 08/30/2020 Vitamin D, 25-Hydroxy, Total, Serum Blood venous Normal Vitamin D,25-Oh,total,ia 43 NG/mL 30-100 NG/mL [facility] [address] [place] 08/30/2020 HbA1C (Hemoglobin a1C), Blood Abscess Normal Hemoglobin a1C 5.0 % of total HGB <5.7 % of total HGB Final [facility]: [address] [place] 04/09/2020 Influenza A/B RSV Covid Amp Normal Influenza a Amplification negative negative [facility] nter: [address] [facility] Normal Influenza B Amplification negative n egative Final [facility]: [address] [facility] Normal RSV Amplification negative negative Final [facility]: [address] [facility] Normal Sars Covid-19 Amplification negative negative Final [facility]: 0 [facility] 03/04/2020 CBC W/ Auto Diff Normal White Blood Count 6.4 10 4.0-10.[address] [facility]: [address] [place] [address] Normal Red Blood Count 4.75 10 4.30-6.[address] [facility]: [address] [facility] Normal Hemoglobin 14.5 g/dL 13.5-17.5 g/dL [facility]: 0 [facility] Normal Hematocrit 42.9 % 42.0-52.0 % [facility]: [address] [place] [address] Normal Mean Corpuscular Volume 90.3 fL 80.0 -96.[address] [facility]: [address] [place] [address] Normal Mean Corpuscular Hemoglobin 30.5 pg 27.0-33.[address] [facility]: [address] [place] [address] Normal Mean Corpuscular HGB Conc 33.8 g/dL 32.0-36.5 g/dL [facility]: [address] [place] [address] Normal Red Cell Distribution Width 12.1 % 1 1.5-14.5 % [facility]: [address] [place] [address] Normal Platelet Count, Automated 326 10 150 -[address] [facility]: [address] [place] [address] High Neutrophils % 66.7 % 36.0-66.0 % [facility]: [address] [facility] Low Lymph % 21.5 % 24.0-44.0 % Final [facility]: [address] [facility] High [place] % 8.5 % 0.0-5.0 % [facility]: [address] [facility] Normal Eos % 1.7 % 0.0-3.0 % [facility]: [address] [facility] High Baso % 1.1 % 0.0-1.0 % [facility]: [address] [facility] Normal Immature Granulocyte % 0.5 % 0-3.0 % [facility]: 8[address] [facility] Normal Nucleated Red Blood Cell % 0.0 % 0- 0 % [facility]: [address] [facility] Normal Neutrophils # 4.3 10 1.5-8.5 10 [facility]: [address] [facility] Low Lymph # 1.4 10 1.5-5.0 10 [facility]: [address] [facility] Normal [place] # 0.5 10 0.0-0.8 10 [facility]: [address] [facility] Normal Eos # 0.1 10 0.0-0.5 10 [facility]: [address] [facility] Normal Baso # 0.1 10 0.0-0.2 10 [facility]: [address] [facility] 03/04/2020 CMP, Serum or Plasma Normal Glucose, Fastin g 87 mg/dL 70-100 mg/dL [facility]: 83 0 [facility] Normal Blood Urea Nitrogen 17 mg/dL 7-18 mg /dL [facility]: 0 [facility] Normal Creatinine for GFR 0.96 mg/dL 0.70-1 .30 mg/dL [facility]: 0 [facility] Normal Glomerular Filtration Rate > 60.0 >[address] [facility]: [address] [facility] Normal Sodium Level 139 mEq/L 136-145 mEq/L [facility]: [address] [facility] Normal Potassium Serum 4.6 mEq/L 3.5-5.1 mE q/L [facility]: [address] [facility] Normal Chloride Level 105 mEq/L 98-107 mEq/ L [facility]: [address] [facility] Normal Carbon Dioxide Level 29 mEq/L 21-32 mEq/L [facility]: [address] [facility] Low Anion Gap 5 mEq/L 8-16 mEq/L [facility]: 8[address] [facility] Normal Calcium Level 9.6 mg/dL 8.5-10.1 mg/ dL [facility]: [address] [facility] Normal AST/SGOT 15 U/L 7-37 U/L [facility]: [address] [facility] Normal ALT/SGPT 21 U/L 12-78 U/L [facility]: [address] [facility] Normal Alkaline Phosphatase 74 U/L 45-117 U /L [facility]: 830 [facility] Normal Bilirubin,total 0.4 mg/dL 0.2-1.0 mg /dL [facility]: 830 [facility] Normal Total Protein 7.4 gm/dL 6.4-8.2 gm/d L [facility]: 8[address] [facility] Normal Albumin 4.3 gm/dL 3.2-5.2 gm/dL Triix[facility] l [facility]: [address] [facility] Normal Albumin/globulin Ratio 1.4 [facility]: 8[address] [facility] 03/04/2020 Lipid Panel, Blood Normal Triglycerides Lev el 129 mg/dL <150 mg/dL [facility]: 83 0 [facility] Normal Cholesterol Level 196 mg/dL <200 mg/ dL [facility]: 830 [facility] Low HDL Cholesterol 35 mg/dL >40 mg/dL F inal [facility]: [address] [facility] High LDL Cholesterol 135 mg/dL <100 mg/dL Final [facility]: [address] [facility] Normal Non-hdl-c 161 mg/dL Final [facility]: [address] [facility] High Cholesterol Risk Ratio 5.600 <5 Final [facility]: [address] [facility] 03/04/2020 PSA, Serum or Plasma Normal PSA Screening 1.17 NG/mL < 4.00 NG/mL Final [facility]: 83 0 [facility] 03/04/2020 Vitamin D, 25-Hydroxy, Total, Serum Normal Total 25(Oh) Vitamin D 53.1 NG/mL 30.0-100.0 NG/mL Final [facility]: [address] [facility] 03/04/2020 HbA1C (Hemoglobin a1C), Blood Normal Hemogl obin a1C 5.2 % Final [facility]: [address] [facility] Normal Estimated Average Glucose 103 mg/dL 60-110 mg/dL Final [facility]: [address] [facility] Iron + TIBC + Ferritin, Serum Blood venous Normal Iro n, Total 73 mcg/dL 50-180 mcg/dL Final [facility]: [address] [facility] Blood venous Normal Iron Binding Capacity 34 9 mcg/dL (calc) 250-425 mcg/dL (calc) Final [facility]: [address] [place] [facility] Blood venous Normal % Saturation 21 % (calc) 20-4 8 % (calc) [facility]: [address] [facility] Blood venous Normal Ferritin 103 NG/mL 38-380 NG/ mL Final [facility] [address] [facility] HIV 1+2 Ab + HIV1 P24 Ag, Quantitative Immunoassay, Serum Normal HIV Ag/Ab, 4TH Gen non-reactive non-reactive [facility] [address] [facility] Lipid Panel, Blood Blood venous Cholesterol, T otal 176 mg/dL <200 mg/dL Final [facility]: [address] [place] Blood venous Low HDL Cholesterol 34 mg/dL > or = 40 mg/dL Final [facility]: [address] [facility] Blood venous Triglycerides 137 mg/dL <150 mg/dL [facility]: [address] [facility] Blood venous High LDL-cholesterol 117 mg/d L (calc) <100 mg/dL (calc) [facility]: 875 [facility] Blood venous High Chol/hdlc Ratio 5.2 calc <5.0 calc Final [facility]: [address] [facility] Blood venous High Non HDL Cholesterol 142 mg/dL (calc) <130 mg/dL (calc) Final [facility]: [address] [facility] TSH + Free T4, Serum Blood venous Normal Tsh 0.43 mIU/L 0.40-4.50 mIU/L [facility]: 8[address] [facility] Blood venous Normal T4, Free 0.8 NG/dL 0.8-1.8 NG /dL [facility]: [address] [facility] CMP, Serum or Plasma Blood venous Normal Glucose 87 mg/dL 65-99 mg/dL [facility]: [address] [facility] Blood venous Normal Urea Nitrogen (BUN) 14 mg/dL 7-25 mg/dL [facility]: [address] [facility] Blood venous Normal Creatinine 0.86 mg/dL 0.70-1. 33 mg/dL [facility]: [address] [facility] Blood venous Normal eGFR Non-afr. Hungarian 1 00 mL/min/1.73m2 > or = 60 mL/min/1.73m2 Final [facility]: [address] [facility] Blood venous Normal eGFR 11 6 mL/min/1.73m2 > or = 60 mL/min/1.73m2 [facility]: [address] [facility] Blood venous BUN/creatinine Ratio not applicable (calc) 6-22 (calc) [facility]: [address] [facility] Blood venous Normal Sodium 140 mmol/L 135-146 mmo l/L [facility]: [address] [facility] Blood venous Normal Potassium 4.3 mmol/L 3.5-5.3 mmol/L Final [facility]: [address] [facility] Blood venous Normal Chloride 102 mmol/L 98-110 mm ol/L [facility]: [address] [facility] [place] Blood venous Normal Carbon Dioxide 29 mmol/L 20-3 2 mmol/L [facility]: [address] [facility] Blood venous Normal Calcium 9.6 mg/dL 8.6-10.3 mg /dL Final [facility]: [address] [facility] Blood venous Normal Protein, Total 7.3 g/dL 6.1-8 .1 g/dL [facility]: [address] [facility] Blood venous Normal Albumin 4.7 g/dL 3.6-5.1 g/dL [facility]: [address] [facility] Blood venous Normal Globulin 2.6 g/dL (calc) 1.9- 3.7 g/dL (calc) [facility]: [address] [facility] Blood venous Normal Albumin/globulin Ratio 1 .8 (calc) 1.0-2.5 (calc) [facility]: [address] [facility] Blood venous Normal Bilirubin, Total 0.4 mg/dL 0. 2-1.2 mg/dL Final [facility]: [address] [facility] Blood venous Normal Alkaline Phosphatase 89 U/L 3 5-144 U/L [facility]: [address] [facility] Blood venous Normal Ast 12 U/L 10-35 U/L Final [facility]: [address] [facility] Blood venous Normal Alt 9 U/L 9-46 U/L [facility] [address] [facility] CBC W/ Auto Diff Blood venous Normal White Bl ood Cell Count 5.9 thousand/uL 3.8-10.8 thousand/uL [facility]: [address] [facility] Blood venous Normal Red Blood Cell Count 4.6 2 million/uL 4.20-5.80 million/uL [facility]: [address] [facility] Blood venous Normal Hemoglobin 14.1 g/dL 13.2-17. 1 g/dL [facility]: [address] [facility] Blood venous Normal Hematocrit 42.4 % 38.5-50.0 % [facility]: [address] [facility] Blood venous Normal Mcv 91.8 fL 80.0-100.0 fL Fi [facility]: [address] [facility] Blood venous Normal Mch 30.5 pg 27.0-33.0 pg Fin [facility]: [address] [facility] Blood venous Normal Mchc 33.3 g/dL 32.0-36.0 g/dL [facility]: [address] [facility] Blood venous Normal Rdw 12.8 % 11.0-15.0 % [facility]: [address] [facility] Blood venous Normal Platelet Count 289 thous and/uL 140-400 thousand/uL [facility]: [address] [facility] Blood venous Normal Mpv 10.6 fL 7.5-12.5 fL Trixie l [facility]: [address] [facility] Blood venous Normal Absolute Neutrophils 397 7 cells/uL 9041-0932 cells/uL [facility]: [address] [facility] Blood venous Normal Absolute Lymphocytes 132 2 cells/uL 850-3900 cells/uL [facility]: [address] [facility] Blood venous Normal Absolute Monocytes 443 c ells/uL 200-950 cells/uL [facility]: [address] [facility] Blood venous Normal Absolute Eosinophils 100 cells/uL 15-500 cells/uL [facility]: [address] [facility] Blood venous Normal Absolute Basophils 59 ce lls/uL 0-200 cells/uL [facility]: [address] [facility] Blood venous Normal Neutrophils 67.4 % 38-80 % Fi [facility]: [address] [place] [facility] Blood venous Normal Lymphocytes 22.4 % 15-49 % Fi [facility]: [address] [facility] Blood venous Normal Monocytes 7.5 % 0-13 % [facility]: [address] [facility] Blood venous Normal Eosinophils 1.7 % 0-8 % Fin [facility]: [address] [place] [facility] Blood venous Normal Basophils 1.0 % 0-2 % Final [facility]: [address] [facility] Hepatitis C Virus Ab, Serum Normal Hepatitis C Antibody non-reactive non-reactive Final [facility] [address] [facility] Normal Index 0.00 <1.00 Final [facility] [address] [place] [facility] Vitamin B12 + Folate, Serum or Blood Blood venous Normal Vitamin B12 458 pg/mL 200-1100 pg/mL Final [facility] Blood venous Normal Folate, Serum 13.5 NG/mL Final [facility]: [address] [facility] Vitamin D, 25-Hydroxy, Total, Serum Blood venous Normal Vitamin D,25- Oh,total,ia 51 NG/mL 30-100 NG/mL [facility] [address] [place] Past Encounters 12/21/2020 Nicotine Dependence; Contact Dermatitis; Patient Asked to Attend; Fracture of Humerus [facility]: [address] [place] [phone], Ph. 11/28/2020 Christian Zuniga MD: [address] [place] [address], Ph. 11/11/2020 Body Mass Index 25-29 - Overweight; Nicotine Dependence with Current Use; Screening for Malignant Neoplasm of Colon; Gastroesophageal Reflux Disease without Esophagitis; Adult Health Examination; Impacted Cerumen of Bilateral Ears [facility]: [address] [place] [phone], Ph. 09/27/2020 Patient Asked to Attend; Nicotine Dependence with Current Use; Obesity; Depressive Disorder; Mixed Hyperlipidemia [facility]: [address] [place] [address], Ph. 08/30/[address] [facility]: [address] [place] [phone], Ph. 04/28/2020 Nicotine Dependence; Fracture of Humerus; Screening for Osteoporosis; Screening for Malignant Neoplasm of Colon; Abnormal Gait; Patient Asked to Attend Nicolera Pelaez [facility]: [address] [place] [address], Ph. 03/04/[address] [facility]: [address] [place] [address], Ph. Social History Tobacco Smoking Status Heavy Tobacco Smoker (1/2 pack per a day) Vaccine List Vaccine Type Influenza, injectable, MDCK, preservativ e free, quadrivalent 01/26/20190.5 mL influenza, seasonal, injectable 01/10/2015 07/05/20160.5 mL pneumococcal conjugate PCV 13 01/10/2015 pneumococcal polysaccharide PPV23 02/01/20140.5 mL Tdap 09/20/20160.5 mL Plan of Care Patient Instructions Lab results reviewed and discussed with you today. Lab results unremarkable except for slightly elevated cholesterol. Please continue medications as prescribed. Please try to maintain good nutrition, adequate rest, adequate physical activities and adequate intake of water daily. Please try to cut back on your smoking with a goal to quit. Please let us know if you need assistance in doing so. We have made a referral for you today, We will contact you to set this up. You have had your annual physical exam d one today. Please continue medications as prescribed. Please continue healthy diet and physical activities. Please try to limit sugars and carbohydrates in your diet. Please try to maintain adequate intake of water daily. screening exams ordered. We will contact you to set them up. Lab results reviewed and discussed with you today. Please continue medications as prescribed. Please try to maintain good nutrition, adequate rest and adequate physical activities and adequate intake of water daily. Reminders Provider Appointments None recorded. Lab None recorded. Referral None recorded. Procedures None recorded. Surgeries None recorded. Imaging None recorded. Vitals 12/21/2020 05:00PM PROVIDER REQUESTED Height Weight BMI Blood Pressure 71 in 194 lbs 16 oz 27.2 kg/m2 117/74 mm[Hg] 11/28/2020 08:20AM NURSE LAB COLLECTION Height 71 in 11/11/2020 10:40AM ANNUAL EXAM Height Weight BMI Blood Pressure 71 in 191 lbs 3.2 oz 26.7 kg/m2 109/68 mm[Hg ] 09/27/2020 05:00PM TELEHEALTH 20 Height 71 in 08/30/2020 09:10AM NURSE LAB COLLECTION Height 71 in 04/28/2020 02:00PM ESTABLISHED [id number] Height Weight BMI Blood Pressure 71 in 209 lbs 2 oz 29.2 kg/m2 111/71 mm[Hg] 11/09/2019 Height Weight BMI Blood Pressure 71 in 213 lbs 2.08 oz 29.83 kg/m2 105/69 mm[H g] 06/24/2019 Height Weight BMI Blood Pressure 71 in 223 lbs 6.08 oz 31.27 kg/m2 108/68 mm[H g] 05/05/2019 Height Weight BMI Blood Pressure 71 in 225 lbs 31.49 kg/m2 111/72 mm[Hg] 03/23/2019 Height Weight BMI Blood Pressure 71 in 231 lbs 8 oz 32.40 kg/m2 132/72 mm[Hg] 02/09/2019 Height Weight BMI Blood Pressure 71 in 222 lbs 8 oz 31.14 kg/m2 96/65 mm[Hg] 01/26/2019 Height Weight BMI Blood Pressure 71 in 224 lbs 2.08 oz 31.37 kg/m2 120/76 mm[H g] 12/29/2018 Height Weight BMI Blood Pressure 71 in 227 lbs 31.77 kg/m2 104/67 mm[Hg] 11/03/2018 Height Weight BMI Blood Pressure 71 in 226 lbs 31.63 kg/m2 113/74 mm[Hg] 09/22/2018 Height Weight BMI Blood Pressure 71 in 233 lbs 32.61 kg/m2 105/64 mm[Hg] 07/24/2018 Height Weight BMI Blood Pressure 71 in 239 lbs 33.45 kg/m2 104/66 mm[Hg] 06/19/2018 Height Weight BMI Blood Pressure 71 in 242 lbs 3.2 oz 33.90 kg/m2 98/67 mm[Hg]
--- OUTSIDE RECORDS SUMMARY | 2021-01-30 07:56 | CCD | Continuity of Care Document ---
Author Author Jordon FAGAN RPA Organization Unknown Address [address] [facility], [address] [place] [address] Phone [phone] Care Team Providers Care Student Success Coach Name Role Phone Nicole PelaezM Problems Active Problems Provider Date Essential hypertension SANJAY Knox Onset: Social History Type Date Description Comments Sex Unknown ETOH Use Denies alcohol use Tobacco Use Start: Unknown Smokes 1 Pack A Day Tobacco Use Start: Unknown Report Cessation Counseling Was Provided Allergies, Adverse Reactions, Alerts Description No Known Drug Allergies Medications Active Medications SIG Qnty Indications Ordering Provide r Date Golytely 236gm Solution Rec take per doctor's instructions for bowel prep. 4000ml Z12.11 Philipp rodriguez MD 12/20/[address] take 4 tabs by mouth prior to procedure per instructions. 4tabs Z12.11 Philipp Plascencia MD 12/20/2020 Aspir-Low 81mg Tablets DR reyes Unknown Fluticasone Propionate 50mcg/Act Suspension 1 sprays to each nostril daily Unknown Gabapentin 800mg Tablets 1 by mouth at hs Unknown Ingrezza 80mg Capsules 1 at h s Unknown Invega Trinza 546mg/1.75ML Tika every 3 months Unknown Lisinopril 20mg Tablets 1 by mouth every day Unknown Multivitamin Adults 50+ Adlt 50+ T ablets 1 by mouth every day Unknown Prilosec OTC 20mg Tablets DR 1 by mouth every day Unknown Seroquel 400mg Tablets 1 b y mouth at hs Unknown Sertraline HCL 100mg Tablets take 1 tab by mouth daily. Unknown Sertraline HCL 50mg Tablets 1 by mouth every day Unknown Simvastatin 10mg Tablets ever y day Unknown Vitamin D (Cholecalciferol) 10mcg (400 Unit) Tablets Daily Unknown Immunizations Description No Information Available Vital Signs Date Vital Result Comment 12/20/2020 10:48am BP Systolic 112 mmHg BP Diastolic 68 mmHg Height 69 inches 5'9" Weight 194.00 lb BMI (Body Mass Index) 28.6 kg/m2 [place] Body Weight 160 lb Weight 87.998 kg BSA (Body Surface Area) 2.04 m2 02/05/2019 10:40am BP Systolic 117 mmHg BP Diastolic 63 mmHg Height 69 inches 5'9" Weight 222.00 lb BMI (Body Mass Index) 32.8 kg/m2 [place] Body Weight 160 lb Weight 100.699 kg BSA (Body Surface Area) 2.16 m2 Results Description No Information Available Procedures Description No Information Available Medical Devices Description No Information Available Encounters Description No Information Available Assessments Date Code Description Provider 12/20/2020 Z12.11 Encounter for screening for harry gnant neoplasm of colon SANJAY Knox Plan of Treatment 12/20/2020 - SANJAY Knox* Z12.11 Encounter for screening for malignant neoplasm of colon * * New Medication:* Golytely 236 gm * Dulcolax 5 mg * New Orders:* Colonoscopy, Ordered: 12/20/20 * Comments:* Will arrange for colonoscopy. Reviewed risks and benefits of the procedure, as well as other options, with the patient. Bowel prep procedure was discussed with patient, as well as risks and side effects associated with the bowel prep. Patient verbalized understanding of all of the above and is in agreement to proceed. Patient will seek medical attention for any acute changes. Will monitor. * Follow up:* As scheduled, sooner if needed. Functional Status Description No Information Available Mental Status Description No Information Available Referrals Refer to Reason for Referral Status Appt Date Anand Bond M.D. COLO SCREENING Created [facility] [address] [facility], [facility] [address] [place] [address] [phone]
--- OUTSIDE RECORDS SUMMARY | 2021-01-30 07:56 | CCD | Continuity of Care Document ---
Author Author Jordon HIGGINS MD Organization Unknown Address [address] [place] [phone] Phone [phone] Care Team Providers Care Heel Seam Rubber Name Role Phone Nicole Pelaez MANAGER [employer] [phone] Dick Aldrich MD [employer] Unavailable Problems Description No Information Available Social History Type Date Description Comments Sex Unknown ETOH Use Denies alcohol use Tobacco Use Start: Unknown Patient is a current smoker, smo kes every day 20 per day Allergies and adverse reactions Description No Known Drug Allergies Medications Active Medications SIG Qnty Indications Ordering Provide r Date Cephalexin 500mg Tablets 1 tabs by mouth four times a day for 10 days 40tabs S42.352K Jacob Low MD 07/19/2020 Vitamin D 2000Unit Tablets 2 tablets by mouth every day 60tabs S92.351K Bobby Franz MD 020 Aspir[address] 1 by mouth every day Unknown Fluticasone Propionate 50mcg/Act Suspension Unknown Gabapentin 800mg Tablets take one tablet by mouth three times a day Unknown Ingrezza 80mg Capsules 1 by mouth every day Unknown Invega Trinza 546mg/1.75ML Tika Unknown Lisinopril 20mg Tablets Unknown Prilosec OTC 20mg Tablets DR 1 by mouth every day Unknown Seroquel 400mg Tablets Unknown Sertraline HCL 100mg Tablets Unknown Sertraline HCL 50mg Tablets Unknown Simvastatin 10mg Tablets Unknown Immunizations Description No Information Available Vital Signs Date Vital Result Comment 11/22/2020 10:29am Body Temperature 96.6 F Height 69 inches 5'9" Results Description No Information Available Procedures Date Code Description Status 11/22/2020 40877 Office/Outpatient Established Lo w MDM 20-29 Min Completed 11/22/2020 75141 X-Ray Humerus Two Views Complete d 10/07/2020 41143 Office/Outpatient Established Lo w MDM 20-29 Min Completed 10/07/2020 71251 X-Ray Humerus Two Views Complete d 08/26/2020 01276 Office/Outpatient Established Lo w MDM 20-29 Min Completed 08/26/2020 16348 X-Ray Humerus Two Views Complete d Medical Devices Description No Information Available Encounters Type Date Location Provider Dx Diagnosis Office Visit 11/22/2020 9:[address] [facility] Debor[facility] Burleson PA-C S42.352 K Displ commnt fx shaft of humer, l arm, 7thK Office Visit 10/07/2020 8:[address] [facility] Debora Burleson PA-C S42.352 K Displ commnt fx shaft of humer, l arm, 7thK Office Visit 08/26/2020 10:[address] [facility] Debora Burleson PA-C S42.352 K Displ commnt fx shaft of humer, l arm, 7thK S40.812D Abrasion of left upper arm, subsequent encounter Assessments Date Code Description Provider 11/22/2020 S42.352K Displaced comminuted fracture of shaft of humerus, left arm, subsequent encounter for fracture with nonunion Debora Burleson PA-C 10/07/2020 S42.352K Displaced comminuted fracture of shaft of humerus, left arm, subsequent encounter for fracture with nonunion Debora Burleson PA-C 08/26/2020 S42.352K Displaced comminuted fracture of shaft of humerus, left arm, subsequent encounter for fracture with nonunion Debora Burleson PA-C 08/26/2020 S40.812D Abrasion of left upper arm, subs equent encounter Debora Burleson PA-C Plan of Treatment 11/22/2020 - Debora Burleson PA-C* S42.352K Displaced comminuted fracture of shaft of humerus, left arm, subsequent encounter for fracture with nonunion* New Labs:* CBC With Differential, Ordered: 11/22/20 * High Sensitivity C-Reactive Protein, Ordered: 11/22/20 * Erythrocyte Sedimentation Rate, Ordered: 11/22/20 * Follow up:* 3 months lt arm recheck w/KLF, please repeat x-rays (3 views) Functional Status Description No Information Available Mental Status Description No Information Available Referrals Refer to Reason for Referral Status Appt Date Kunal Fletcher, PA-C MRI APPROVED PER MARYBETH FOR MRI OF LEFT UPPER ARM ([id number]) TO [facility]INDSE[facility] Escobar [address] [place] [address] [address] [place] [address] [phone]
--- OUTSIDE RECORDS SUMMARY | 2021-01-30 07:56 | CCD ---
Author Organization Unknown Address [address] [place] [address] Phone [phone] Care Team Providers Care Chemical Laboratory Technician Name Role Phone TODD HUBBARD MD 2 [phone] Allergies Code Code System Name Reaction Severity Status Onset NKDA Medications Name Status Start Date Stop Date administration flu ny USE DIRECTED Active Not available aspirin 81 mg chewable tablet Chew 1 tablet every day by oral route. Active Not available Flonase Allergy Relief 50 mcg/actuation nasal spray,suspension [place] 1 spray every day by intranasal route. [...] 11/11/2020 LDCT, Chest, for Lung Cancer Screening S [facility] Oncology/Radiology [address] [place] [id number] (Work [address]) Notes: No known surgical history Results Lab Results Date Name Specimen Result Interpretation Description Value Range Status Address 08/30/2020 Lipid Panel, Blood Blood venous Cholesterol , Total 174 mg/dL <200 mg/dL Final [facility] gh: [address] , [place] Blood venous Low HDL Cholesterol 33 mg/dL > or = 40 mg/dL Final [facility]: 875 [facility] Blood venous High Triglycerides 181 mg/dL <150 mg/dL Final [facility]: 8[address] [facility] Blood venous High LDL-cholesterol 111 mg/d L (calc) <100 mg/dL (calc) Final [facility]: [address] Kathy banuelso [facility] Blood venous High Chol/hdlc Ratio 5.3 calc <5.0 calc Final [facility]: 875 [facility] Blood venous High Non HDL Cholesterol 141 mg/dL (calc) <130 mg/dL (calc) Final [facility]: 8[address] [facility] 08/30/2020 CMP, Serum or Plasma Blood venous Normal Glucose 90 mg/dL 65-99 mg/dL Final [facility]: 8[address] [facility] Blood venous Normal Urea Nitrogen (BUN) 18 mg/dL 7-25 mg/dL Final [facility]: 8[address] [facility] Blood venous Normal Creatinine 0.85 mg/dL 0.70-1. 33 mg/dL [facility]: 8[address] [facility] Blood venous Normal eGFR Non-afr. Georgian 1 01 mL/min/1.73m2 > or = 60 mL/min/1.73m2 Final [facility]: 8[address] [facility] Blood venous Normal eGFR 11 7 mL/min/1.73m2 > or = 60 mL/min/1.73m2 Final [facility]: 8[address] [facility] Blood venous BUN/creatinine Ratio not applicable (calc) 6-22 (calc) Final [facility]: [address] Kathy banuelos [facility] Blood venous Normal Sodium 140 mmol/L 135-146 mmo l/L Final [facility]: 8[address] [facility] Blood venous Normal Potassium 4.7 mmol/L 3.5-5.3 mmol/L [facility]: 8[address] [facility] Blood venous Normal Chloride 101 mmol/L 98-110 mm ol/L [facility]: 875 [facility] Blood venous Normal Carbon Dioxide 26 mmol/L 20-3 2 mmol/L Final [facility]: 8[address] [facility] Blood venous Normal Calcium 9.9 mg/dL 8.6-10.3 mg /dL Final [facility]: 8[address] [facility] Blood venous Normal Protein, Total 7.2 g/dL 6.1-8 .1 g/dL [facility]: 8[address] [facility] Blood venous Normal Albumin 4.7 g/dL 3.6-5.1 g/dL [facility]: 8[address] [facility] Blood venous Normal Globulin 2.5 g/dL (calc) 1.9- 3.7 g/dL (calc) Final [facility]: 8[address] [facility] Blood venous Normal Albumin/globulin Ratio 1 .9 (calc) 1.0-2.5 (calc) [facility]: [address] Kathy banuelos [facility] Blood venous Normal Bilirubin, Total 0.4 mg/dL 0. 2-1.2 mg/dL [facility]: 875 [facility] Blood venous Normal Alkaline Phosphatase 139 U/L 35-144 U/L Final [facility]: 8[address] [facility] Blood venous Normal Ast 19 U/L 10-35 U/L Final [facility]: 875 [facility] Blood venous Normal Alt 14 U/L 9-46 U/L Final [facility]: [address] [facility] 08/30/2020 CBC W/ Auto Diff Blood venous Normal White B lood Cell Count 8.5 thousand/uL 3.8-10.8 thousand/uL [facility]: 875 [facility] Blood venous Normal Red Blood Cell Count 4.6 3 million/uL 4.20-5.80 million/uL [facility] Normal Hemoglobin 14.1 g/dL 13.2-17. 1 g/dL [facility]: 8[address] [facility] Blood venous Normal Hematocrit 40.6 % 38.5-50.0 % [facility]: 8[address] [facility] Blood venous Normal Mcv 87.7 fL 80.0-100.0 fL Fi nal [facility]: 8[address] [facility] Blood venous Normal Mch 30.5 pg 27.0-33.0 pg Fin al [facility]: 8[address] [facility] Blood venous Normal Mchc 34.7 g/dL 32.0-36.0 g/dL [facility]: 8[address] [facility] Blood venous Normal Rdw 14.3 % 11.0-15.0 % [facility]: 8[address] [facility] Blood venous Normal Platelet Count 369 thous and/uL 140-400 thousand/uL [facility]: 875 [facility] Blood venous Normal Mpv 10.3 fL 7.5-12.5 fL Trixie l [facility]: 8[address] [facility] Blood venous Normal Absolute Neutrophils 629 0 cells/uL 0751-2465 cells/uL [facility]: 8[address] [facility] Blood venous Normal Absolute Lymphocytes 139 4 cells/uL 850-3900 cells/uL [facility]: 8[address] [facility] Blood venous Normal Absolute Monocytes 655 c ells/uL 200-950 cells/uL [facility]: 875 [facility] Blood venous Normal Absolute Eosinophils 111 cells/uL 15-500 cells/uL [facility]: 875 [facility] Blood venous Normal Absolute Basophils 51 ce lls/uL 0-200 cells/uL [facility]: 875 [facility] Blood venous Normal Neutrophils 74 % 38-80 % Fi [facility]: 875 [facility] Blood venous Normal Lymphocytes 16.4 % 15-49 % Fi [facility]: 875 [facility] Blood venous Normal Monocytes 7.7 % 0-13 % [facility]: 8[address] [facility] Blood venous Normal Eosinophils 1.3 % 0-8 % Fin [facility]: 8[address] [facility] Blood venous Normal Basophils 0.6 % 0-2 % [facility]: 8[address] [facility] 08/30/2020 Vitamin D, 25-Hydroxy, Total, Serum Blood venous Normal Vitamin D,25-Oh,total,ia 43 NG/mL 30-100 NG/mL Final [facility]: [address] [facility] 08/30/2020 HbA1C (Hemoglobin a1C), Blood Abscess Normal Hemoglobin a1C 5.0 % of total HGB <5.7 % of total HGB Final [facility]: [address] [place] 04/09/2020 Influenza A/B RSV Covid Amp Normal Influenza a Amplification negative negative [facility] nter: 830 [facility] Normal Influenza B Amplification negative n egative Final [facility]: 830 [facility] Normal RSV Amplification negative negative Final [facility]: 830 [facility] Normal Sars Covid-19 Amplification negative negative [facility]: 830 [facility] 03/04/2020 CBC W/ Auto Diff Normal White Blood Count 6.4 10 4.0-10.0 10 [facility]: [address] [place] [address] Normal Red Blood Count 4.75 10 4.30-6.10 10 [facility]: 830 [facility] Normal Hemoglobin 14.5 g/dL 13.5-17.5 g/dL [facility]: 830 [facility] Normal Hematocrit 42.9 % 42.0-52.0 % [facility]: 0 [facility] Normal Mean Corpuscular Volume 90.3 fL 80.0 -96.0 fL [facility]: [address] [place] [address] Normal Mean Corpuscular Hemoglobin 30.5 pg 27.0-33.0 pg [facility]: 0 [facility] Normal Mean Corpuscular HGB Conc 33.8 g/dL 32.0-36.5 g/dL [facility]: 0 [facility] Normal Red Cell Distribution Width 12.1 % 1 1.5-14.5 % [facility]: 0 [facility] Normal Platelet Count, Automated 326 10 150 -450 10 [facility]: 0 [facility] High Neutrophils % 66.7 % 36.0-66.0 % Fin [facility]: 0 [facility] Low Lymph % 21.5 % 24.0-44.0 % Final [facility]: 830 [facility] High [place] % 8.5 % 0.0-5.0 % [facility]: 830 [facility] Normal Eos % 1.7 % 0.0-3.0 % [facility]: 830 [facility] High Baso % 1.1 % 0.0-1.0 % [facility]: 830 [facility] Normal Immature Granulocyte % 0.5 % 0-3.0 % [facility]: 830 [facility] Normal Nucleated Red Blood Cell % 0.0 % 0- 0 % [facility]: 830 [facility] Normal Neutrophils # 4.3 10 1.5-8.5 10 [facility]: 830 [facility] Low Lymph # 1.4 10 1.5-5.0 10 [facility]: 830 [facility] Normal [place] # 0.5 10 0.0-0.8 10 [facility]: 830 [facility] Normal Eos # 0.1 10 0.0-0.5 10 [facility]: 830 [facility] Normal Baso # 0.1 10 0.0-0.2 10 [facility]: 830 [facility] 03/04/2020 CMP, Serum or Plasma Normal Glucose, Fastin g 87 mg/dL 70-100 mg/dL [facility]: 83 0 [facility] Normal Blood Urea Nitrogen 17 mg/dL 7-18 mg /dL [facility]: 0 [facility] Normal Creatinine for GFR 0.96 mg/dL 0.70-1 .30 mg/dL [facility]: 830 [facility] Normal Glomerular Filtration Rate > 60.0 >5 6 [facility]: 830 [facility] Normal Sodium Level 139 mEq/L 136-145 mEq/L [facility]: 830 [facility] Normal Potassium Serum 4.6 mEq/L 3.5-5.1 mE q/L [facility]: 830 [facility] Normal Chloride Level 105 mEq/L 98-107 mEq/ L [facility]: 8[address] [facility] Normal Carbon Dioxide Level 29 mEq/L 21-32 mEq/L [facility]: 830 [facility] Low Anion Gap 5 mEq/L 8-16 mEq/L [facility]: 830 [facility] Normal Calcium Level 9.6 mg/dL 8.5-10.1 mg/ dL [facility]: 830 [facility] Normal AST/SGOT 15 U/L 7-37 U/L [facility]: 830 [facility] Normal ALT/SGPT 21 U/L 12-78 U/L [facility]: 830 [facility] Normal Alkaline Phosphatase 74 U/L 45-117 U /L [facility]: 830 [facility] Normal Bilirubin,total 0.4 mg/dL 0.2-1.0 mg /dL [facility]: 830 [facility] Normal Total Protein 7.4 gm/dL 6.4-8.2 gm/d L [facility]: 830 [facility] Normal Albumin 4.3 gm/dL 3.2-5.2 gm/dL [facility]: 830 [facility] Normal Albumin/globulin Ratio 1.4 [facility]: 830 [facility] 03/04/2020 Lipid Panel, Blood Normal Triglycerides Lev el 129 mg/dL <150 mg/dL [facility]: 83 0 [facility] Normal Cholesterol Level 196 mg/dL <200 mg/ dL [facility]: 830 [facility] Low HDL Cholesterol 35 mg/dL >40 mg/dL F inal [facility]: 830 [facility] High LDL Cholesterol 135 mg/dL <100 mg/dL Final [facility]: 830 [facility] Normal Non-hdl-c 161 mg/dL Final [facility]: 830 [facility] High Cholesterol Risk Ratio 5.600 <5 Final [facility]: 830 [facility] 03/04/2020 PSA, Serum or Plasma Normal PSA Screening 1.17 NG/mL < 4.00 NG/mL Final [facility]: 83 0 [facility] 03/04/2020 Vitamin D, 25-Hydroxy, Total, Serum Normal Total 25(Oh) Vitamin D 53.1 NG/mL 30.0-100.0 NG/mL [facility]: 830 [facility] 03/04/2020 HbA1C (Hemoglobin a1C), Blood Normal Hemogl obin a1C 5.2 % [facility]: 830 [facility] Normal Estimated Average Glucose 103 mg/dL 60-110 mg/dL [facility]: 830 [facility] Past Encounters 11/28/2020 Christian Zuniga MD: [address] [place] [address], Ph. 11/11/2020 Body Mass Index 25-29 - Overweight; Nicotine Dependence with Current Use; Screening for Malignant Neoplasm of Colon; Gastroesophageal Reflux Disease without Esophagitis; Adult Health Examination; Impacted Cerumen of Bilateral Ears Nicole Benigno [facility]: [address] [place] [address], Ph. 09/27/2020 Patient Asked to Attend; Nicotine Dependence with Current Use; Obesity; Depressive Disorder; Mixed Hyperlipidemia Nicolera Pelaez [facility]: [address] [place] [address], Ph. 08/30/2020 Nicoleluis armando Pelaez [facility]: [address] [place] [address], Ph. 04/28/2020 Nicotine Dependence; Fracture of Humerus; Screening for Osteoporosis; Screening for Malignant Neoplasm of Colon; Abnormal Gait; Patient Asked to Attend Nicoleluis armando ePlaez [facility]: [address] [place] [address], Ph. 03/04/2020 Nicole Pelaez [facility]: [address] [place] [address], Ph. Social History Tobacco Smoking Status Heavy Tobacco Smoker (1/2 pack per a day) Vaccine List Vaccine Type Influenza, injectable, MDCK, preservativ e free, quadrivalent 01/26/20190.5 mL influenza, seasonal, injectable 01/10/2015 07/05/20160.5 mL pneumococcal conjugate PCV 13 01/10/2015 pneumococcal polysaccharide [id number] 02/01/20140.5 mL Tdap 09/20/20160.5 mL Plan of Care Patient Instructions You have had your annual physical exam [...] Surgeries None recorded. Imaging None recorded. Vitals 11/28/2020 08:20AM NURSE LAB COLLECTION Height 71 in 11/11/2020 10:40AM ANNUAL EXAM Height Weight BMI Blood Pressure 71 in 191 lbs 3.2 oz 26.7 kg/m2 109/68 mm[Hg ] 09/27/2020 05:00PM TELEHEALTH 20 Height 71 in 08/30/2020 09:10AM NURSE LAB COLLECTION Height 71 in 04/28/2020 02:00PM ESTABLISHED [id number] Height Weight BMI Blood Pressure 71 in [...]
--- OUTSIDE RECORDS SUMMARY | 2021-01-30 07:56 | CCD ---
Author Author Marlys Jordonmiguel angel Quesada Organization Unknown Address [address] [place] [phone] Phone Care Team Providers Care Construction Driver Name Role Phone Sangita Frankel PCP Allergies, Adverse Reactions, Alerts No Data in Section Problem List Concept Problem Description Status Start Date Created Date Resolv ed Date Snomed Code F20.0 Paranoid schizophrenia Active 06/25/2016 06/25/2016 G24.01 Tardive Dyskinesia Active 05/10/2017 05/10/2017 Medications Rx Norm Medication Route Route Concept Start Date Stop Date Dosage Xavier quency Duration Formula Strength Dosage Form Dosage Form Code Dosage Description Medication Id Account Npid Author First Name Author Last Name Taxonomy Code Taxonomy Desc Phone Number [phone] Invega Trinza intramuscularly 09/26/2018 as dire cted 819 mg/2.625 mL syringe [id number] [phone] Marcia Benjamin [id number] Nurse Practitioner [phone] [id number] Ingrezza by mouth [id number] 09/15/2019 01/21/2021 once a day 30 80 mg capsule [id number] Marcia Benjamin [id number] N urse Practitioner [phone] [id number] gabapentin by mouth [id number] 11/28/2020 01/27/2021 at bedtime 30 400 mg capsule [id number] Marcia Benjamin [id number] N urse Practitioner [id number] Seroquel by mouth [id number] 04/17/2016 at bedtime [place] [address] [id number] Marcia Benjamin [id number] Nurse Practitioner [id number] amantadine HCl by mouth [id number] 10/31/2020 01/27/2021 at bedtime 30 100 mg capsule [id number] [id number] Marcia Benjamin [id number] Nurse Practitioner [id number] Social History Social History Element Description Concept Effective Date Smoking Status Unknown if ever smoked [id number] Immunizations No Data in Section Vital Signs No Data in Section Procedures Date Concept Id Description Targeted Site Concept Targeted Site Concept Type 12/29/2020 66078 Injectable Psychotro pic Medication Administration (Injection Only) CPT Patient has no history of implantable de vices Encounters Encounter Start Date End Date Encounter Type Description Diagnosis Di agnosis Desc Location Author First Name Author Last Name Npid Taxonomy Cod e Taxonomy Desc Phone Number Location Addr1 Location Addr2 Location [facility] Location [facility] Location Zip [phone] 12/29/2020 12/29/2020 10138 Injectable Psyc hotropic Medication Administration (Injection Only) F20.0 Paranoid schizophrenia Commu nit Clinic [facility] Marlys Quesada [id number] Licensed Practical Nurse [phone] [address] [phone] Plan of Treatment No Data in Section Lab Results No Data in Section Instructions No Data in Section Insurance Providers Insurance Id Policy Effective Date Policy Thru Date [employer] Equipment N gabbie [id number] MEDICAID
--- OUTSIDE RECORDS SUMMARY | 2021-01-30 07:56 | CCD ---
Author Organization Unknown Address [address] [place] [address] Phone [phone] Care Team Providers Care Chemical Process Engineer Name Role Phone TODD HUBBARD MD 2 [phone] Allergies Code Code System Name Reaction Severity Status Onset NKDA Medications Name Status Start Date Stop Date administration flu ny USE DIRECTED Active Not available aspirin 81 mg chewable tablet Chew 1 tablet every day by oral route. Active Not available Flonase Allergy Relief 50 mcg/actuation nasal spray,suspension [place] 1 spray every day by intranasal route. [...] 11/11/2020 LDCT, Chest, for Lung Cancer Screening I nformation not available Notes: No known surgical history Results Lab Results Date Name Specimen Result Interpretation Description Value Range Status Address 08/30/2020 Lipid Panel, Blood Blood venous Cholesterol , Total 174 mg/dL <200 mg/dL Final [facility]: [address] [facility] [place] Blood venous Low HDL Cholesterol 33 mg/dL > or = 40 mg/dL Final [facility]: [address] [facility] [place] Blood venous High Triglycerides 181 mg/dL <150 mg/dL Final [facility]: 875 [facility] Blood venous High LDL-cholesterol 111 mg/d L (calc) <100 mg/dL (calc) Final [facility]: [facility] [facility] Blood venous High Chol/hdlc Ratio 5.3 calc <5.0 calc Final [facility]: 8[address] [facility] Blood venous High Non HDL Cholesterol 141 mg/dL (calc) <130 mg/dL (calc) Final [facility]: [address] [facility] 08/30/2020 CMP, Serum or Plasma Blood venous Normal Glucose 90 mg/dL 65-99 mg/dL Final [facility]: 8[address] [facility] Blood venous Normal Urea Nitrogen (BUN) 18 mg/dL 7-25 mg/dL Final [facility]: [address] [facility] Blood venous Normal Creatinine 0.85 mg/dL 0.70-1. 33 mg/dL Final [facility]: 8[address] [facility] Blood venous Normal eGFR Non-afr. Citizen Of [place] 1 01 mL/min/1.73m2 > or = 60 mL/min/1.73m2 Final [facility]: 8[address] [facility] Blood venous Normal eGFR 11 7 mL/min/1.73m2 > or = 60 mL/min/1.73m2 Final [facility]: 8[address] [facility] Blood venous BUN/creatinine Ratio not applicable (calc) 6-22 (calc) Final [facility]: 875 Kathy banuelos [facility] Blood venous Normal Sodium 140 mmol/L 135-146 mmo l/L [facility]: 8[address] [facility] Blood venous Normal Potassium 4.7 mmol/L 3.5-5.3 mmol/L [facility]: 8[address] [facility] Blood venous Normal Chloride 101 mmol/L 98-110 mm ol/L Final [facility]: [address] [facility] Blood venous Normal Carbon Dioxide 26 mmol/L 20-3 2 mmol/L [facility]: 8[address] [facility] Blood venous Normal Calcium 9.9 mg/dL 8.6-10.3 mg /dL Final [facility]: 8[address] [facility] Blood venous Normal Protein, Total 7.2 g/dL 6.1-8 .1 g/dL Final [facility]: [facility] Blood venous Normal Albumin 4.7 g/dL 3.6-5.1 g/dL [facility]: 8[address] [facility] Blood venous Normal Globulin 2.5 g/dL (calc) 1.9- 3.7 g/dL (calc) [facility]: 8[address] [facility] Blood venous Normal Albumin/globulin Ratio 1 .9 (calc) 1.0-2.5 (calc) [facility]: 8[address] Kathy banuelos [facility] Blood venous Normal Bilirubin, Total 0.4 mg/dL 0. 2-1.2 mg/dL [facility]: 8[address] [facility] Blood venous Normal Alkaline Phosphatase 139 U/L 35-144 U/L [facility]: 8[address] [facility] Blood venous Normal Ast 19 U/L 10-35 U/L Final [facility]: [address] [facility] Blood venous Normal Alt 14 U/L 9-46 U/L Final [facility]: 8[address] [facility] 08/30/2020 CBC W/ Auto Diff Blood venous Normal White B lood Cell Count 8.5 thousand/uL 3.8-10.8 thousand/uL [facility]: [address] [facility] Blood venous Normal Red Blood Cell Count 4.6 3 million/uL 4.20-5.80 million/uL [facility] 8[address] [facility] Blood venous Normal Hemoglobin 14.1 g/dL 13.2-17. 1 g/dL [facility]: 8[address] [facility] Blood venous Normal Hematocrit 40.6 % 38.5-50.0 % [facility]: [address] [facility] Blood venous Normal Mcv 87.7 fL 80.0-100.0 fL Fi nal [facility]: [address] [facility] Blood venous Normal Mch 30.5 pg 27.0-33.0 pg Fin al [facility]: [address] [facility] Blood venous Normal Mchc 34.7 g/dL 32.0-36.0 g/dL Final [facility]: [address] [facility] Blood venous Normal Rdw 14.3 % 11.0-15.0 % [facility]: [address] [facility] Blood venous Normal Platelet Count 369 thous and/uL 140-400 thousand/uL [facility]: 875 [facility] Blood venous Normal Mpv 10.3 fL 7.5-12.5 fL Trixie l [facility]: [address] [facility] Blood venous Normal Absolute Neutrophils 629 0 cells/uL 1402-8558 cells/uL [facility]: 8[address] [facility] Blood venous Normal Absolute Lymphocytes 139 4 cells/uL 850-3900 cells/uL [facility]: 8[address] [facility] Blood venous Normal Absolute Monocytes 655 c ells/uL 200-950 cells/uL [facility]: 875 [facility] Blood venous Normal Absolute Eosinophils 111 cells/uL 15-500 cells/uL [facility]: [address] [facility] Blood venous Normal Absolute Basophils 51 ce lls/uL 0-200 cells/uL [facility]: 875 [facility] Blood venous Normal Neutrophils 74 % 38-80 % [facility]: 8[address] [facility] Blood venous Normal Lymphocytes 16.4 % 15-49 % [facility]: 8[address] [facility] Blood venous Normal Monocytes 7.7 % 0-13 % [facility]: 8[address] [facility] Blood venous Normal Eosinophils 1.3 % 0-8 % Fin al [facility]: [address] [facility] Blood venous Normal Basophils 0.6 % 0-2 % [facility]: [address] [facility] 08/30/2020 Vitamin D, 25-Hydroxy, Total, Serum Blood venous Normal Vitamin D,25-Oh,total,ia 43 NG/mL 30-100 NG/mL Final [facility] 08/30/2020 HbA1C (Hemoglobin a1C), Blood Abscess Normal Hemoglobin a1C 5.0 % of total HGB <5.7 % of total HGB Final [facility]: [address] [place] [place] 04/09/2020 Influenza A/B RSV Covid Amp Normal Influenza a Amplification negative negative [facility] nter: 830 [facility] Normal Influenza B Amplification negative n egative Final [facility]: 830 [facility] Normal RSV Amplification negative negative Final [facility]: 830 [facility] Normal Sars Covid-[address] [facility]: 830 [facility] 03/04/2020 CBC W/ Auto Diff Normal White Blood Count 6.4 10 4.0-10.[address] [facility] [place]: 830 [facility] Normal Red Blood Count 4.75 10 4.30-6.[address] [facility] [place]: 830 [facility] Normal Hemoglobin 14.5 g/dL 13.5-17.5 g/dL [facility] [place]: 830 [facility] Normal Hematocrit 42.9 % 42.0-52.0 % [facility] [place]: 830 [facility] Normal Mean Corpuscular Volume 90.3 fL 80.0 -96.[address] [facility] [place]: 830 [facility] Normal Mean Corpuscular Hemoglobin 30.5 pg 27.0-33.[address] [facility] [place]: 830 [facility] Normal Mean Corpuscular HGB Conc 33.8 g/dL 32.0-36.5 g/dL [facility] [place]: 830 [facility] Normal Red Cell Distribution Width 12.1 % 1 1.5-14.5 % [facility] [place]: 830 [facility] Normal Platelet Count, Automated 326 10 150 -[address] [facility] [place]: 0 [facility] High Neutrophils % 66.7 % 36.0-66.0 % Fin [facility]: 830 [facility] Low Lymph % 21.5 % 24.0-44.0 % [facility]: 830 [facility] High [place] % 8.5 % 0.0-5.0 % [facility]: 830 [facility] Normal Eos % 1.7 % 0.0-3.0 % [facility]: 0 [facility] High Baso % 1.1 % 0.0-1.0 % [facility]: 830 [facility] Normal Immature Granulocyte % 0.5 % 0-3.0 % [facility] [place]: 830 [facility] Normal Nucleated Red Blood Cell % 0.0 % 0- 0 % [facility] [place]: 830 [facility] Normal Neutrophils # 4.3 10 1.5-8.5 10 [facility] Low Lymph # 1.4 10 1.5-5.0 10 [facility]: 830 [facility] Normal [place] # 0.5 10 0.0-0.8 10 [facility]: 830 [facility] Normal Eos # 0.1 10 0.0-0.5 10 [facility]: 830 [facility] Normal Baso # 0.1 10 0.0-0.2 10 [facility]: 830 [facility] 03/04/2020 CMP, Serum or Plasma Normal Glucose, Fastin g 87 mg/dL 70-100 mg/dL [facility] [place]: 83 0 [facility] Normal Blood Urea Nitrogen 17 mg/dL 7-18 mg /dL [facility] [place]: 0 [facility] Normal Creatinine for GFR 0.96 mg/dL 0.70-1 .30 mg/dL [facility] [place]: 0 [facility] Normal Glomerular Filtration Rate > 60.0 >[address] [facility] [place]: 830 [facility] Normal Sodium Level 139 mEq/L 136-145 mEq/L [facility] [place]: 0 [facility] Normal Potassium Serum 4.6 mEq/L 3.5-5.1 mE q/L [facility] [place]: 830 [facility] Normal Chloride Level 105 mEq/L 98-107 mEq/ L [facility] [place]: 830 [facility] Normal Carbon Dioxide Level 29 mEq/L 21-32 mEq/L [facility] [place]: 830 [facility] Low Anion Gap 5 mEq/L 8-16 mEq/L [facility] [place]: 830 [facility] Normal Calcium Level 9.6 mg/dL 8.5-10.1 mg/ dL [facility] [place]: 830 [facility] Normal AST/SGOT 15 U/L 7-37 U/L [facility]: 830 [facility] Normal ALT/SGPT 21 U/L 12-78 U/L [facility]: 830 [facility] Normal Alkaline Phosphatase 74 U/L 45-117 U /L [facility] [place]: 830 [facility] Normal Bilirubin,total 0.4 mg/dL 0.2-1.0 mg /dL [facility] [place]: 830 [facility] Normal Total Protein 7.4 gm/dL 6.4-8.2 gm/d L [facility] [place]: 830 [facility] Normal Albumin 4.3 gm/dL 3.2-5.2 gm/dL Trixie l [facility]: 830 [facility] Normal Albumin/globulin Ratio 1.4 [facility] [place]: 830 [facility] 03/04/2020 Lipid Panel, Blood Normal Triglycerides Lev el 129 mg/dL <150 mg/dL [facility] [place]: 83 0 [facility] Normal Cholesterol Level 196 mg/dL <200 mg/ dL [facility] [place]: 830 [facility] Low HDL Cholesterol 35 mg/dL >40 mg/dL F [facility]: 830 [facility] High LDL Cholesterol 135 mg/dL <100 mg/dL [facility] [place]: 830 [facility] Normal Non-hdl-c 161 mg/dL Final [facility]: 830 [facility] High Cholesterol Risk Ratio 5.600 <5 Final [facility]: 830 [facility] 03/04/2020 PSA, Serum or Plasma Normal PSA Screening 1.17 NG/mL < 4.00 NG/mL Final [facility]: 83 0 [facility] 03/04/2020 Vitamin D, 25-Hydroxy, Total, Serum Normal Total 25(Oh) Vitamin D 53.1 NG/mL 30.0-100.0 NG/mL [facility]: 830 [facility] 03/04/2020 HbA1C (Hemoglobin a1C), Blood Normal Hemogl obin a1C 5.2 % [facility] [place]: 830 [facility] Normal Estimated Average Glucose 103 mg/dL 60-110 mg/dL Final [facility]: 830 [facility] Past Encounters 11/11/2020 Body Mass Index 25-29 - Overweight; Nicotine Dependence with Current Use; Screening for Malignant Neoplasm of Colon; Gastroesophageal Reflux Disease without Esophagitis; Adult Health Examination; Impacted Cerumen of Bilateral Ears Nicolera Pelaez [facility]: [address] [place] [phone], Ph. 09/27/2020 Patient Asked to Attend; Nicotine Dependence with Current Use; Obesity; Depressive Disorder; Mixed Hyperlipidemia Nicole Pelaez [facility]: [address] [place] [phone], Ph. 08/30/2020 [facility] [address] [place] [phone], Ph. 04/28/2020 Nicotine Dependence; Fracture of Humerus; Screening for Osteoporosis; Screening for Malignant Neoplasm of Colon; Abnormal Gait; Patient Asked to Attend Nicole Pelaez [facility]: [address] [place] [phone], Ph. 03/04/2020 Nicole Pelaez [facility]: [address] [place] [phone], Ph. Social History Tobacco Smoking Status Heavy [...] Surgeries None recorded. Imaging None recorded. Vitals 11/11/2020 10:40AM ANNUAL EXAM Height Weight BMI Blood Pressure 71 in 191 lbs 3.2 oz 26.7 kg/m2 109/68 mm[Hg ] 09/27/2020 05:00PM TELEHEALTH 20 Height 71 in 08/30/2020 09:10AM NURSE LAB COLLECTION Height 71 in 04/28/2020 02:00PM ESTABLISHED [id number] Height Weight BMI Blood Pressure 71 in [...]
--- OUTSIDE RECORDS SUMMARY | 2021-01-30 07:56 | CCD ---
Author Author Jordon Benjamin Organization Unknown Address [address] [place] [phone] Phone Care Team Providers Care Diesel Fitter Mechanic Name Role Phone Marcia Benjamin PCP Allergies, Adverse Reactions, Alerts No Data [...] Name Taxonomy Code Taxonomy Desc Phone Number [phone] Invega Trinza intramuscularly 09/26/2018 as dire cted 819 mg/2.625 mL syringe [id number] [phone] Marcia Benjamin [id number] Nurse Practitioner [phone] [id number] Seroquel by mouth [id number] 04/17/2016 01/27/2021 at bedtime 9 4 00 mg tablet 15742 [id number] [phone] Marcia Benjamin [id number] Nurse Sheldon lyoner [phone] [id number] amantadine HCl by mouth [id number] 10/31/2020 01/27/2021 at bedtime 30 100 mg capsule 36425 [id number] [phone] Marcia Benjamin [id number] Nurse Practitioner [phone] [id number] gabapentin by mouth [id number] 11/28/2020 03/18/2021 at bedtime 30 400 mg capsule 76701 [id number] [phone] Marcia Benjamin [id number] [place] Practitioner [phone] Social History Social History Element Description Concept Effective Date Smoking Status Unknown if ever smoked [id number] Immunizations No Data in Section Vital Signs No Data in Section Procedures Date Concept Id Description Targeted Site Concept Targeted Site Concept Type 01/25/2021 90843 E/M Level 3 - Established Patient CPT 01/25/2021 32665 Psychotherapy ADD ON - 30 Minutes CPT Patient has no history of implantable de vices Encounters Encounter Start Date End Date Encounter Type Description Diagnosis Di agnosis Desc Location Author First Name Author Last Name Npid Taxonomy Cod e Taxonomy Desc Phone Number Location Addr1 Location Addr2 Location [facility] Location Critical access hospital Location [facility] [id number] 01/25/2021 01/25/2021 31597 E/M Level 3 - Established Pa tient F20.0 Paranoid schizophrenia [facility] Patr icia [phone] [id number] Nurse Practitioner [phone] [address] [phone] Plan of Treatment No Data in Section Lab Results No Data in Section Instructions No Data in Section Functional Cognitive Status No Data in Section Insurance Providers Insurance Id Policy Effective Date Policy Thru Date Company Sylvia cartwright [id number] 2018 MEDICAID
--- OUTSIDE RECORDS SUMMARY | 2021-01-30 07:56 | CCD | Continuity of Care Document ---
Author Author Jordon MENDOZA PA-C Organization Unknown Address [address] [place] [phone] Phone [phone] Care Team Providers Care Wire Insulator Name Role Phone Nicole Pelaez Bobbi BRITTP AUTM [phone] Dick Aldrich MD AUTM Unavailable Problems Description No Information Available Social History Type Date Description Comments Sex Unknown ETOH Use Denies alcohol use Tobacco Use Start: Unknown Patient is a current smoker, smo kes every day 20 per day Allergies, Adverse Reactions, Alerts Description No Known [...] 96.6 F Height 69 inches 5'9" Results Test Acquired Date Facility Test Result H/L Range Note Complete Blood Count 07/19/2020 [facility] entr [address] [place] [address] (315)- - White Blood Count 5.4 10 Normal 4.0-10.0 Red Blood Count 4.17 10 Low 4.30-6.10 Hemoglobin 12.1 g/dL Low 13.5-17.5 Hematocrit 37.2 % Low 42.0-52.0 Mean Corpuscular Volume 89.2 fl Normal 80.0-96.0 Mean Corpuscular Hemoglobin 29.0 pg Normal 27.0-33.0 Mean Corpuscular HGB Conc 32.5 g/dL Normal 32.0-36.5 Red Cell Distribution Width 13.0 % Normal 11.5-14.5 Platelet Count, Automated 307 10 Normal 150-450 Nucleated Red Blood Cell % 0.0 % Normal 0-0 Laboratory test finding 07/19/2020 [facility] l Centr [address] [place] [address] (315)- - Erythrocyte Sedimentation Rate 30 mm/hr High 0-20 C Reactive Protein Quantitativ 0.94 mg/dL High 0.00-0.30 Procedures Date Code Description Status 11/22/2020 04597 Office/Outpatient Established Lo w MDM 20-29 Min Completed 11/22/2020 91272 X-Ray Humerus Two Views Complete d 10/07/2020 60489 Office/Outpatient Established Lo w MDM 20-29 Min Completed 10/07/2020 18178 X-Ray Humerus Two Views Complete d 08/26/2020 02973 Office/Outpatient Established Lo w MDM 20-29 Min Completed 08/26/2020 56849 X-Ray Humerus Two Views Complete d 07/19/2020 34786 Office/Outpatient Established Mo d MDM 30-39 Min Completed 07/19/2020 88917 X-Ray Humerus Two Views Complete d 06/20/2020 95101 X-Ray Shoulder Complete Complete d Medical Devices Description No Information Available Encounters Type Date Location Provider Dx Diagnosis Office Visit 11/22/2020 9:45a Thomas Mendoza PA-C S42.352 K Displ commnt fx shaft of humer, l arm, 7thK Office Visit 10/07/2020 8:45a [place] Debora Stoddard CISCO Mendoza S42.352 K Displ commnt fx shaft of humer, l arm, 7thK Office Visit 08/26/2020 10:30a [place] Debora Stoddard CISCO Mendoza S42.352 K Displ commnt fx shaft of humer, l arm, 7thK S40.812D Abrasion of left upper arm, subsequent encounter Assessments Date Code Description Provider 11/22/2020 S42.352K Displaced comminuted fracture of shaft of humerus, left arm, subsequent encounter for fracture with nonunion Debora L. CISCO Mendoza 10/07/2020 S42.352K Displaced comminuted fracture of shaft of humerus, left arm, subsequent encounter for fracture with nonunion Debora Richi CISCO Mendoza 08/26/2020 S42.352K Displaced comminuted fracture of shaft of humerus, left arm, subsequent encounter for fracture with nonunion Debora María ElenaKai Mendoza PA-C 08/26/2020 S40.812D Abrasion of left upper arm, subs equent encounter Debora Mendoza PA-C 07/19/2020 S40.812A Abrasion of left upper arm, init ial encounter Kunal Fletcher PA-C 07/19/2020 S42.352K Displaced comminuted fracture of shaft of humerus, left arm, subsequent encounter for fracture with nonunion Kunal Fletcher PA-C 06/20/2020 S42.352G Displaced comminuted fracture of shaft of humerus, left arm, subsequent encounter for fracture with delayed healing Debora Mendoza PA-C Plan of Treatment 11/22/2020 - Debora Mendoza PA-C* S42.352K Displaced comminuted fracture of shaft [...] for Referral Status Appt Date Kunal Fletcher, PAJosé MiguelC MRI APPROVED PER MARYBETH FOR MRI OF LEFT UPPER ARM (31368) TO LINDSEY THOMAS [facility] [address] [place] [phone]
--- OUTSIDE RECORDS SUMMARY | 2021-01-30 07:57 | CCD ---
Author Author [facility] Organization [facility] Address Unknown Phone Unavailable Care Team Providers Care Trestle Mechanic Name Role Phone Himanshu Zuniga MD Unavailable Unavailable Himanshu Zuniga MD Unavailable Unavailable Himanshu Zuniga MD Unavailable Unavailable Himanshu Zuniga MD Unavailable Unavailable Himanshu Zuniga MD Unavailable Unavailable Himanshu Zuniga MD Unavailable Unavailable Himanshu Zuniga MD Unavailable Unavailable Himanshu Zuniga MD Unavailable Unavailable Himanshu Zuniga MD Unavailable Unavailable Himanshu Zuniga MD Unavailable Unavailable Himanshu Zuniga MD Unavailable Unavailable Himanshu Zuniga MD Unavailable Unavailable Himanshu Zuniga MD Unavailable Unavailable Himanshu Zuniga MD Unavailable Unavailable Himanshu Zuniga MD Unavailable Unavailable Himanshu Zuniga MD Unavailable Unavailable Himanshu Zuniga MD Unavailable Unavailable Himanshu Zuniga MD Unavailable Unavailable Himanshu Zuniga MD Unavailable Unavailable Himanshu Zuniga MD Unavailable Unavailable Himanshu Zuniga MD Unavailable Unavailable Himanshu Zuniga MD Unavailable Unavailable Himanshu Zuniga MD Unavailable Unavailable Himanshu Zuniga MD Unavailable Unavailable Himanshu Zuniga MD Unavailable Unavailable Himanshu Zuniga MD Unavailable Unavailable Himanshu Zuniga MD Unavailable Unavailable Himanshu Zuniga MD Unavailable Unavailable Himanshu Zuniga MD Unavailable Unavailable Himanshu Zuniga MD Unavailable Unavailable Himanshu Zuniga MD Unavailable Unavailable Himanshu Zuniga MD Unavailable Unavailable Himanshu Zuniga MD Unavailable Unavailable Himanshu Zuniga MD Unavailable Unavailable Himanshu Zuniga MD Unavailable Unavailable Himanshu Zuniga MD Unavailable Unavailable Himanshu Zuniga MD Unavailable Unavailable Himanshu Zuniga MD Unavailable Unavailable Himanshu Zuniga MD Unavailable Unavailable Himanshu Zuniga MD Unavailable Unavailable Himanshu Zuniga MD Unavailable Unavailable Himanshu Zuniga MD Unavailable Unavailable Himanshu Zuniga MD Unavailable Unavailable Himanshu Zuniga MD Unavailable Unavailable Himanshu Zuniga MD Unavailable Unavailable Himanshu Zuniga MD Unavailable Unavailable Himanshu Zuniga MD Unavailable Unavailable Himanshu Zuniga MD Unavailable Unavailable Himanshu Zuniga MD Unavailable Unavailable Himanshu Zuniga MD Unavailable Unavailable Himanshu Zuniga MD Unavailable Unavailable Himanshu Zuniga MD Unavailable Unavailable Himanshu Zuniga MD Unavailable Unavailable Himanshu Zuniga MD Unavailable Unavailable Himanshu Zuniga MD Unavailable Unavailable Himanshu Zuniga MD Unavailable Unavailable Himanshu Zuniga MD Unavailable Unavailable Himanshu Zuniga MD Unavailable Unavailable Himanshu Zuniga MD Unavailable Unavailable Himanshu Zuniga MD Unavailable Unavailable Himanshu Zuniga MD Unavailable Unavailable Himanshu Zuniga MD Unavailable Unavailable Himanshu Zuniga MD Unavailable Unavailable Himanshu Zuniga MD Unavailable Unavailable Himanshu Zuniga MD Unavailable Unavailable Himanshu Zuniga MD Unavailable Unavailable Himanshu Zuniga MD Unavailable Unavailable Himanshu Zuniga MD Unavailable Unavailable Himanshu Zuniga MD Unavailable Unavailable Himanshu Zuniga MD Unavailable Unavailable Himanshu Zuniga MD Unavailable Unavailable Himanshu Zuniga MD Unavailable Unavailable Himanshu Zuniga MD Unavailable Unavailable Himanshu Zuniga MD Unavailable Unavailable Himanshu Zuniga MD Unavailable Unavailable Himanshu Zuniga MD Unavailable Unavailable Himanshu Zuniga MD Unavailable Unavailable Himanshu Zuniga MD Unavailable Unavailable Himanshu Zuniga MD Unavailable Unavailable Himanshu Zuniga MD Unavailable Unavailable Himanshu Zuniga MD Unavailable Unavailable Himanshu Zuniga MD Unavailable Unavailable Himanshu Zuniga MD Unavailable Unavailable Himanshu Zuniga MD Unavailable Unavailable Himanshu Zuniga MD Unavailable Unavailable Himanshu Zuniga MD Unavailable Unavailable Himanshu Zuniga MD Unavailable Unavailable Himanshu Zuniga MD Unavailable Unavailable Himanshu Zuniga MD Unavailable Unavailable Himanshu Zuniga MD Unavailable Unavailable Himanshu Zuniga MD Unavailable Unavailable Himanshu Zuniga MD Unavailable Unavailable Himanshu Zuniga MD Unavailable Unavailable Nicole Pelaez PASTRY CHEF PASTRY CHEF Unavailable Unavailable Fish, [facility], PA-C Unavailable Unavailabl e Fish, [facility], PA-C Unavailable Unavailabl e Fish, [facility], PA-C Unavailable Unavailabl e Fish, [facility], PA-C Unavailable Unavailabl e Fish, [facility], PA-C Unavailable Unavailabl e Fish, [facility], PA-C Unavailable Unavailabl e Fish, [facility], PA-C Unavailable Unavailabl e Fish, [facility], PA-C Unavailable Unavailabl e Fish, [facility], PA-C Unavailable Unavailabl e Fish, [facility], PA-C Unavailable Unavailabl e Fish, [facility], PA-C Unavailable Unavailabl e Fish, [facility], PA-C Unavailable Unavailabl e Fish, [facility], PA-C Unavailable Unavailabl e Fish, [facility], PA-C Unavailable Unavailabl e Fish, [facility], PA-C Unavailable Unavailabl e Fish, [facility], PA-C Unavailable Unavailabl e Fish, [facility], PA-C Unavailable Unavailabl e Fish, [facility], PA-C Unavailable Unavailabl e Fish, [facility], PA-C Unavailable Unavailabl e Fish, [facility], PA-C Unavailable Unavailabl e Fish, [facility], PA-C Unavailable Unavailabl e Fish, [facility], PA-C Unavailable Unavailabl e Fish, [facility], PA-C Unavailable Unavailabl e Fish, [facility], PA-C Unavailable Unavailabl e Fish, [facility], PA-C Unavailable Unavailabl e Fish, [facility], PA-C Unavailable Unavailabl e Fish, [facility], PA-C Unavailable Unavailabl e Fish, [facility], PA-C Unavailable Unavailabl e Fish, [facility], PA-C Unavailable Unavailabl e Fish, [facility], PA-C Unavailable Unavailabl e Fish, [facility], PA-C Unavailable Unavailabl e Fish, [facility], PA-C Unavailable Unavailabl e Fish, [facility], PA-C Unavailable Unavailabl e Fish, [facility], PA-C Unavailable Unavailabl e Fish, [facility], PA-C Unavailable Unavailabl e Mamie Lira Unavailable Benigno, A Nicole PASTRY CHEF Unavailable Unavailable Benigno, A Nicole PASTRY CHEF Unavailable Unavailable Benigno, A Nicole PASTRY CHEF Unavailable Unavailable Benigno, A Nicole PASTRY CHEF Unavailable Unavailable Benigno, A Nicole PASTRY CHEF Unavailable Unavailable Benigno, A Nicole PASTRY CHEF Unavailable Unavailable Benigno, A Nicole PASTRY CHEF Unavailable Unavailable Benigno, A Nicole PASTRY CHEF Unavailable Unavailable Lingle, A Nicole PASTRY CHEF Unavailable Unavailable Lingle, A Nicole PASTRY CHEF Unavailable Unavailable Lingle, A Nicole PASTRY CHEF Unavailable Unavailable Lingle, A Nicole PASTRY CHEF Unavailable Unavailable Lingle, A Nicole PASTRY CHEF Unavailable Unavailable Benigno, A Nicole PASTRY CHEF Unavailable Unavailable Benigno, A Nicole PASTRY CHEF Unavailable Unavailable Lingle, A Nicole PASTRY CHEF Unavailable Unavailable Lingle, A Nicole PASTRY CHEF Unavailable Unavailable Lingle, A Nicole PASTRY CHEF Unavailable Unavailable Benigno, A Nicole PASTRY CHEF Unavailable Unavailable Benigno, A Nicole PASTRY CHEF Unavailable Unavailable Benigno, A Nicole PASTRY CHEF Unavailable Unavailable Benigno, A Nicole PASTRY CHEF Unavailable Unavailable Lingle, A Nicole PASTRY CHEF Unavailable Unavailable Lingle, A Nicole PASTRY CHEF Unavailable Unavailable Benigno, A Nicole PASTRY CHEF Unavailable Unavailable Benigno, A Nicole PASTRY CHEF Unavailable Unavailable Benigno, A Nicole PASTRY CHEF Unavailable Unavailable Benigno, A Nicole PASTRY CHEF Unavailable Unavailable Benigno, A Nicole PASTRY CHEF Unavailable Unavailable Benigno, A Nicole PASTRY CHEF Unavailable Unavailable Benigno, A Nicole PASTRY CHEF Unavailable Unavailable Marisa Melchor Unavailable Salina Tovar Unavailable SOURAV, H NIKOLE HAND SPRAY OPERATOR Unavailable Unavailable SOURAV, H NIKOLE HAND SPRAY OPERATOR Unavailable Unavailable SOURAV, H NIKOLE HAND SPRAY OPERATOR Unavailable Unavailable SOURAV, H NIKOLE HAND SPRAY OPERATOR Unavailable Unavailable SOURAV, H NIKOLE HAND SPRAY OPERATOR Unavailable Unavailable SOURAV, H NIKOLE HAND SPRAY OPERATOR Unavailable Unavailable SOURAV, H NIKOLE HAND SPRAY OPERATOR Unavailable Unavailable SOURAV, H NIKOLE HAND SPRAY OPERATOR Unavailable Unavailable SOURAV, H NIKOLE HAND SPRAY OPERATOR Unavailable Unavailable HIGGINS, JENNIFER MD Unavailable Unavailable HIGGINS, JENNIFER MD Unavailable Unavailable HIGGINS, JENNIFER MD Unavailable Unavailable HIGGINS, JENNIFER MD Unavailable Unavailable HIGGINS, JENNIFER MD Unavailable Unavailable HIGGINS, JENNIFER MD Unavailable Unavailable HIGGINS, JENNIFER MD Unavailable Unavailable HIGGINS, JNENIFER MD Unavailable Unavailable HIGGINS, JENNIFER MD Unavailable Unavailable HIGGINS, JENNIFER MD Unavailable Unavailable HIGGINS, JENNIFER MD Unavailable Unavailable HIGGINS, JENNIFER MD Unavailable Unavailable HIGGINS, JENNIFER MD Unavailable Unavailable HIGGINS, JENNIFER MD Unavailable Unavailable HIGGINS, JENNIFER MD Unavailable Unavailable HIGGINS, JENNIFER MD Unavailable Unavailable HIGGINS, JENNIFER MD Unavailable Unavailable HIGGINS, JENNIFER MD Unavailable Unavailable HIGGINS, JENNIFER MD Unavailable Unavailable HIGGINS, JENNIFER MD Unavailable Unavailable HIGGINS, JENNIFER MD Unavailable Unavailable HIGGINS, JENNIFER MD Unavailable Unavailable HIGGINS, JENNIFER MD Unavailable Unavailable HIGGINS, JENNIFER MD Unavailable Unavailable HIGGINS, JENNIFER MD Unavailable Unavailable HIGGINS, JENNIFER MD Unavailable Unavailable HIGGINS, JENNIFER MD Unavailable Unavailable HIGGINS, JENNIFER MD Unavailable Unavailable HIGGINS, JENNIFER MD Unavailable Unavailable HIGGINS, JENNIFER MD Unavailable Unavailable HIGGINS, JENNIFER MD Unavailable Unavailable Rotella, Sangita Unavailable Unavailable Re-disclosure Warning The records that you are about to access may contain information from federally-assisted alcohol or drug abuse programs. If such information is present, then the following federally mandated warning applies: This information has been disclosed to you from records protected by federal confidentiality rules (42 CFR part 2). The federal rules prohibit you from making any further disclosure of this information unless further disclosure is expressly permitted by the written consent of the person to whom it pertains or as otherwise permitted by 42 CFR part 2. A general authorization for the release of medical or other information is NOT sufficient for this purpose. The Federal rules restrict any use of the information to criminally investigate or prosecute any alcohol or drug abuse patient.The records that you are about to access may contain highly sensitive health information, the redisclosure of which is protected by Article 27-F of the [facility] Public Health law. If you continue you may have access to information: Regarding HIV / AIDS; Provided by facilities licensed or operated by the [facility] Office of Mental Health; or Provided by the [facility] Office for People With Developmental Disabilities. If such information is present, then the following [facility] mandated warning applies: This information has been disclosed to you from confidential records which are protected by state law. State law prohibits you from making any further disclosure of this information without the specific written consent of the person to whom it pertains, or as otherwise permitted by law. Any unauthorized further disclosure in violation of state law may result in a fine or half-way sentence or both. A general authorization for the release of medical or other information is NOT sufficient authorization for further disc losure. Family History Family Member Name Family Member Gender Family Member Status Date o f Status Description Data Source(s) Unknown Unknown Problem [facility] ([facility]) Encounters Encounter Providers Location Date Indications Data Source(s ) Outpatient Attender: NIKOLE CALDWELL NP [facility] Mj l 01/25/2021 10:30:00 AM EDT - 01/25/2021 10:30:00 AM EDT [facility] ([facility]) Attender: NIKOLE CALDWELL NP 01/25/2021 12:00:00 AM EDT [facility] ([facility]) Injectable Psychotropic Medication Administration (Inj ection Only) Attender: Sangita Frankel [facility] Skilled Nursing 12/29/2020 10:00:00 AM EDT - 12/29/2020 10:00:00 AM EDT [facility] ([facility]) Attender: Sangita Frankel 12/29/2020 12:00:00 AM EDT [facility] ([facility]) JOVANY Traore-: [address] [place] [address], Ph. Attender: Nicole MANZO [facility] Medical 12/21/2020 12:00:00 AM EDT [facility] ([facility]) Christian Zuniga MD: [address] [place] [address], Ph. Attender: Christian Zuniga MD [facility] Medical 11/28/2020 12:00:00 AM EDT [facility] ([facility]) Christian Zuniga MD: [address] [place] [address], Ph. Attender: Christian Zuniga MD [facility] Medical 11/28/2020 12:00:00 AM EDT [facility] ([facility]) OFFICE OUTPATIENT VISIT 15 MINUTES Attender: Debora BARKER PA-C Physical Therapy 11/22/2020 09:45:00 AM EDT [facility] ([facility]) Nicole Pelaez [facility]: [address] [place] [address], Ph. Attender: Nicole Pelaez [facility] Medical 11/11/2020 12:00:00 AM EDT [facility]) [facility] [address] [place] [address], Ph. Attender: Nicole Pelaez [facility] Medical 11/11/2020 12:00:00 AM EDT [place] ([facility]) [facility] [address] [place] [address], Ph. Attender: Nicole Pelaez [facility] Medical 11/11/2020 12:00:00 AM EDT [place] ([facility]) OFFICE OUTPATIENT VISIT 15 MINUTES Attender: Debora BARKER PA-C Physical Therapy 10/07/2020 08:45:00 AM EDT [facility] ([facility]) Injectable Medication Administration w/ Monitoring & E ducation Attender: Salina Tovar [facility] 10/06/2020 09:00:00 AM EDT - 10/06/2020 09:00:00 AM EDT [facility] ([facility]) Attender: Salina Schwartzkarson 10/06/2020 12:00:00 AM EDT [facility] ([facility]) [facility] [address], [place] [address], Ph. Attender: Nicole Pelaez [facility] Medical 09/27/2020 12:00:00 AM EDT [facility] ([facility]) RACHANA Traore: [address], [place] [address], Ph. Attender: Nicole Pelaez [facility] Medical 09/27/2020 12:00:00 AM EDT [facility] ([facility]) RACHANA Traore: [address], [place] [address], Ph. Attender: Nicole Pelaez [facility] Medical 09/27/2020 12:00:00 AM EDT [place] ([facility]) RACHANA Traore: [address], [place] [address], Ph. Attender: Nicole Pelaez [facility] Medical 09/27/2020 12:00:00 AM EDT [facility] ([facility]) RACHANA rTaore: [address], [place] [address], Ph. Attender: Nicole Pelaez [facility] Medical 08/30/2020 12:00:00 AM EDT [facility]) Nicole Pelaez [facility]: [address], [place] [address], Ph. Attender: Nicole Pelaez [facility] Medical 08/30/2020 12:00:00 AM EDT [facility]) Nicole Pelaez [facility]: [address], [place] [address], Ph. Attender: Nicole Pelaez [facility] Medical 08/30/2020 12:00:00 AM EDT [facility]) Nicole Pelaez [facility]: [address], [place] [address], Ph. Attender: Nicole Pelaez [facility] Medical 08/30/2020 12:00:00 AM EDT [facility]) Nicole Pelaez [facility]: [address], [place] [address], Ph. Attender: Nicole Pelaez [facility] Medical 08/30/2020 12:00:00 AM EDT [place] ([facility]) Outpatient Attender: NIKOLE CALDWELL NP [facility] Mj cardona 08/29/2020 10:30:00 AM EDT - 08/29/2020 10:30:00 AM EDT [facility] Attender: NIKOLE CALDWELL NP 08/29/2020 12:00:00 AM EDT [facility] ([facility]) OFFICE OUTPATIENT VISIT 15 MINUTES Attender: Debora BARKER PA-C Physical Therapy 08/26/2020 10:30:00 AM EDT [facility] ([facility] ) Injectable Psychotropic Medication Administration (Inj ection Only) Attender: Salina Tovar [facility] 07/14/2020 09:45:00 AM EDT - 07/14/2020 09:45:00 AM EDT [facility] ([facility]) Attender: Salina Tovar 07/14/2020 12:00:00 AM EDT [facility] ([facility]) Outpatient Attender: NIKOLE CALDWELL NP [facility] 07/04/2020 10:30:00 AM EDT - 07/04/2020 10:30:00 AM EDT [facility] ([facility]) Attender: NIKOLE CALDWELL NP 07/04/2020 12:00:00 AM EDT [facility] ([facility]) Outpatient Attender: NIKOLE CALDWELL NP [facility] 06/06/2020 10:00:00 AM EST - 06/06/2020 10:00:00 AM EST [facility] ([facility]) Attender: NIKOLE CALDWELL NP 06/06/2020 12:00:00 AM EST [facility] ([facility]) Attender: Mamie Lira 06/02/2020 12:00:00 AM EST [facility] ([facility]) Injectable Psychotropic Medication Administration (Inj ection Only) Attender: Mamie Lira [facility] 05/23/2020 01:00:00 AM EST - 05/23/2020 01:00:00 AM EST [facility] ([facility]) RACHANA TraoreBC: [address] [place] [address], Ph. Attender: Nicole Pelaez [facility] Medical 04/28/2020 12:00:00 AM EST [facility] ([facility]) RACHANA TraoreBC: [address] [place] [address], Ph. Attender: Nicole Pelaez [facility] Medical 04/28/2020 12:00:00 AM EST [facility] ([facility]) [facility] [address], [place] [address], Ph. Attender: Nicole Pelaez [facility] 04/28/2020 12:00:00 AM EST [facility] ([facility]) Nicole Pelaez [facility]: [address], [place] [address], Ph. Attender: Nicole Pelaez [facility] 04/28/2020 12:00:00 AM EST [facility] ([facility]) BALWINDER TraorePJosé Miguel: [address], [place] [address], Ph. Attender: Nicole Pelaez [facility] Medical 04/28/2020 12:00:00 AM EST [facility] ([facility]) [facility]: [address], [place] [address], Ph. Attender: Nicole Pelaez [facility] Medical 04/28/2020 12:00:00 AM EST [facility] ([facility]) [facility]: [address], [place] [address], Ph. Attender: Nicole Pelaez [facility] Medical 04/28/2020 12:00:00 AM EST [facility] ([facility]) Outpatient Attender: JENNIFER HIGGINS MD Physical Therapy 03:07:00 PM EST [facility] ([facility] ) Injectable Medication Administration w/ Monitoring & E ducation Attender: Sangita Frankel [facility] 04/06/2020 02:45:00 AM EST - 04/06/2020 02:45:00 AM EST [facility] ([facility]) Attender: Sangitaraphael Frankel 04/06/2020 12:00:00 AM EST [facility] ([facility]) Nicole Pelaez [facility]: [address], [place] [address], Ph. Attender: Nicole Pelaez [facility] Medical 03/04/2020 12:00:00 AM EST [facility] ([facility]) Nicole Pelaez [facility]: [address], [place] [address], Ph. Attender: Nicole Pelaez [facility] Medical 03/04/2020 12:00:00 AM EST [facility] ([facility]) Nicole Pelaez [facility]: [address], [place] [address], Ph. Attender: Nicole Pelaez [facility] Medical 03/04/2020 12:00:00 AM EST [facility] ([facility]) Nicole Pelaez [facility]: [address], [place] [address], Ph. Attender: Nicole Pelaez [facility] Medical 03/04/2020 12:00:00 AM EST [facility] ([facility]) Nicole Pelaez [facility]: [address], [place] [address], Ph. Attender: Nicole Pelaez [facility] Medical 03/04/2020 12:00:00 AM EST [facility] ([facility]) Nicole Pelaez [facility]: [address], [place] [address], Ph. [facility]: [facility] 03/04/2020 12:00:00 AM EST [facility] ([facility]) BALWINDER TraoreP-: [address] [place] [address], Ph. Att[facility]: [facility] 03/04/2020 12:00:00 AM EST [facility] ([facility]) Outpatient Attender: JOVANY MANZO 02/04/2020 12:09:01 P M EDT [facility] Injectable Medication Administration w/ Monitoring & E ducation Attender: Marisa Melchor [facility] 01/13/2020 02:30:00 AM EDT - 01/13/2020 02:30:00 AM EDT [facility] ([facility] Attender: Marisa Melchor 01/13/2020 12:00:00 AM EDT [facility] ([facility]) Outpatient Attender: NIKOLE CALDWELL NP [facility] brendan 12/30/2019 05:00:00 AM EDT - 12/30/2019 05:00:00 AM EDT [facility] ([facility]) Attender: NIKOLE CALDWELL NP 12/30/2019 12:00:00 AM EDT [facility] ([facility]) Injectable Medication Administration w/ Monitoring & E ducation Attender: Marisa Melchor [facility] 12/18/2019 10:00:00 AM EDT - 12/18/2019 10:00:00 AM EDT [facility] ([facility]) Attender: Marisa Melchor 12/18/2019 12:00:00 AM EDT [facility] ([facility]) Outpatient Attender: JOVANY CONNOR 12/16/2019 10:14:00 A M EDT [facility] Outpatient Attender: JOVANY MANZO 12/11/2019 03:01:00 P M EDT [facility] Functional Status Immunizations Vaccine Date Status Description Data Source(s) COVID-19 VACCINE Moderna 06/30/2020 12:00:00 AM EDT completed [place] Vaccine Series Complete: YESThis Data wa s Submitted to [facility] [employer]. COVID-19 VACCINE Moderna 06/02/2020 12:00:00 AM EST completed [place] Vaccine Series Complete: NOThis Data was Submitted to [facility] [employer]. Medications Medication Brand Name Start Date Product Form Dose Route Admi nistrative Instructions Pharmacy Instructions Status Indications Reaction Description Data Source(s) POLYETHYLENE GLYCOL 3350 59 MG/ML / Pota ssium Chloride 0.01 MEQ/ML / Sodium Bicarbonate 0.02 MEQ/ML / Sodium Chloride 0.025 MEQ/ML / sodium sulfate 0.04 MEQ/ML Oral Solution [Golytely] Golytely 12/20/2020 12:00:00 AM EDT active [facility] ([facility], ) Bisacodyl 5 MG Delayed Release Oral Tablet [Dulcolax] Dulcol ax 12/20/2020 12:00:00 AM EDT ORAL active M [facility] ([facility], ) gabapentin 400 MG Oral Capsule gabapentin 11/28/2020 12:00:00 AM EDT 400 mg by mouth completed <td ID="Medica tionRxNorm_4">358367</td><td ID="MedicationMedication_4">gabapentin</td><td ID="MedicationRoute_4">by mouth</td><td ID="MedicationRouteConcept_4">C43841</td><td ID="MedicationStartDate_4">11/28/2020</td><td ID="MedicationStopDate_4">03/18/2021</td><td ID="MedicationDosageFrequency_4">at bedtime</td><td ID="MedicationDuration_4">30</td><td ID="MedicationFormulaStrength_4">400 mg</td><td ID="MedicationDosageForm_4">capsule</td><td ID="MedicationDosageFormCode_4"></td><td ID="MedicationDosageDescription_4"></td><td ID="MedicationMedicationId_4">[id number]</td><td ID="MedicationAccount_4">[id number]</td><td ID="MedicationNpid_4">[id number]</td><td ID="MedicationAuthorFirstName_4">Nikole</td><td ID="MedicationAuthorLastName_4">Sourav</td><td ID="MedicationTaxonomyCode_4">[id number]</td><td ID="MedicationTaxonomyDesc_4">Nurse Practitioner</td><td ID="MedicationPhoneNumber_4">[phone]</td> [facility] ([facility]) gabapentin 400 MG Oral Capsule gabapentin 11/28/2020 12:00:00 AM EDT 400 mg by mouth completed <td ID="Medica tionRxNorm_3">168275</td><td ID="MedicationMedication_3">gabapentin</td><td ID="MedicationRoute_3">by mouth</td><td ID="MedicationRouteConcept_3">N42258</td><td ID="MedicationStartDate_3">11/28/2020</td><td ID="MedicationStopDate_3">01/27/2021</td><td ID="MedicationDosageFrequency_3">at bedtime</td><td ID="MedicationDuration_3">30</td><td ID="MedicationFormulaStrength_3">400 mg</td><td ID="MedicationDosageForm_3">capsule</td><td ID="MedicationDosageFormCode_3"></td><td ID="MedicationDosageDescription_3"></td><td ID="MedicationMedicationId_3">[id number]</td><td ID="MedicationAccount_3">[id number]</td><td ID="MedicationNpid_3">[id number]</td><td ID="MedicationAuthorFirstName_3">Nikole</td><td ID="MedicationAuthorLastName_3">Sourav</td><td ID="MedicationTaxonomyCode_3">[id number]</td><td ID="MedicationTaxonomyDesc_3">Nurse Practitioner</td><td ID="MedicationPhoneNumber_3">[phone]</td> [facility] ([facility]) Amantadine Hydrochloride 100 MG Oral Capsule amantadine HCl 10/31/2020 12:00:00 AM EDT 100 mg by mouth completed <td ID="MedicationRxNorm_5">232618</td><td ID="MedicationMedication_5">amantadine HCl</td><td ID="MedicationRoute_5">by mouth</td><td ID="MedicationRouteConcept_5">H29585</td><td ID="MedicationStartDate_5">10/31/2020</td><td ID="MedicationStopDate_5">01/27/2021</td><td ID="MedicationDosageFrequency_5">at bedtime</td><td ID="MedicationDuration_5">30</td><td ID="MedicationFormulaStrength_5">100 mg</td><td ID="MedicationDosageForm_5">capsule</td><td ID="MedicationDosageFormCode_5"></td><td ID="MedicationDosageDescription_5"></td><td ID="MedicationMedicationId_5">[id number]</td><td ID="MedicationAccount_5">[id number]</td><td ID="MedicationNpid_5">[id number]</td><td ID="MedicationAuthorFirstName_5">Nikole</td><td ID="MedicationAuthorLastName_5">Sourav</td><td ID="MedicationTaxonomyCode_5">[id number]</td><td ID="MedicationTaxonomyDesc_5">Nurse Practitioner</td><td ID="MedicationPhoneNumber_5">[phone]</td> [facility] ([facility]) Amantadine Hydrochloride 100 MG Oral Capsule amantadine HCl 10/31/2020 12:00:00 AM EDT 100 mg by mouth completed <td ID="MedicationRxNorm_3">514034</td><td ID="MedicationMedication_3">amantadine HCl</td><td ID="MedicationRoute_3">by mouth</td><td ID="MedicationRouteConcept_3">L89851</td><td ID="MedicationStartDate_3">10/31/2020</td><td ID="MedicationStopDate_3">01/27/2021</td><td ID="MedicationDosageFrequency_3">at bedtime</td><td ID="MedicationDuration_3">30</td><td ID="MedicationFormulaStrength_3">100 mg</td><td ID="MedicationDosageForm_3">capsule</td><td ID="MedicationDosageFormCode_3"></td><td ID="MedicationDosageDescription_3"></td><td ID="MedicationMedicationId_3">[id number]</td><td ID="MedicationAccount_3">[id number]</td><td ID="MedicationNpid_3">[id number]</td><td ID="MedicationAuthorFirstName_3">Nikole</td><td ID="MedicationAuthorLastName_3">Sourav</td><td ID="MedicationTaxonomyCode_3">[id number]</td><td ID="MedicationTaxonomyDesc_3">Nurse Practitioner</td><td ID="MedicationPhoneNumber_3">[phone]</td> [facility] ([facility]) Amantadine Hydrochloride 100 MG Oral Capsule amantadine HCl 08/04/2020 12:00:00 AM EDT 100 mg by mouth completed <td ID="MedicationRxNorm_4">267541</td><td ID="MedicationMedication_4">amantadine HCl</td><td ID="MedicationRoute_4">by mouth</td><td ID="MedicationRouteConcept_4">F87157</td><td ID="MedicationStartDate_4">08/04/2020</td><td ID="MedicationStopDate_4">10/28/2020</td><td ID="MedicationDosageFrequency_4">at bedtime</td><td ID="MedicationDuration_4">30</td><td ID="MedicationFormulaStrength_4">100 mg</td><td ID="MedicationDosageForm_4">capsule</td><td ID="MedicationDosageFormCode_4"></td><td ID="MedicationDosageDescription_4"></td><td ID="MedicationMedicationId_4">[id number]</td><td ID="MedicationAccount_4">[id number]</td><td ID="MedicationNpid_4">[id number]</td><td ID="MedicationAuthorFirstName_4">Nikole</td><td ID="MedicationAuthorLastName_4">Sourav</td><td ID="MedicationTaxonomyCode_4">[id number]</td><td ID="MedicationTaxonomyDesc_4">Nurse Practitioner</td><td ID="MedicationPhoneNumber_4">[phone]</td> [facility] ([facility]) Amantadine Hydrochloride 100 MG Oral Capsule amantadine HCl 08/04/2020 12:00:00 AM EDT 100 mg by mouth completed <td ID="MedicationRxNorm_6">124575</td><td ID="MedicationMedication_6">amantadine HCl</td><td ID="MedicationRoute_6">by mouth</td><td ID="MedicationRouteConcept_6">O74233</td><td ID="MedicationStartDate_6">08/04/2020</td><td ID="MedicationStopDate_6">10/03/2020</td><td ID="MedicationDosageFrequency_6">at bedtime</td><td ID="MedicationDuration_6">30</td><td ID="MedicationFormulaStrength_6">100 mg</td><td ID="MedicationDosageForm_6">capsule</td><td ID="MedicationDosageFormCode_6"></td><td ID="MedicationDosageDescription_6"></td><td ID="MedicationMedicationId_6">[id number]</td><td ID="MedicationAccount_6">[id number]</td><td ID="MedicationNpid_6">[id number]</td><td ID="MedicationAuthorFirstName_6">Nikole</td><td ID="MedicationAuthorLastName_6">Sourav</td><td ID="MedicationTaxonomyCode_6">[id number]</td><td ID="MedicationTaxonomyDesc_6">Nurse Practitioner</td><td ID="MedicationPhoneNumber_6">[phone]</td> [facility] ([facility]) Cephalexin 500 MG Oral Tablet Cephalexin 07/19/2020 12:00:00 AM EDT ORAL active [facility] ([facility]) Sertraline 100 MG Oral Tablet sertraline 06/07/2020 12:00:00 AM EST 100 mg by mouth completed <td ID="Medica tionRxNorm_7">984236</td><td ID="MedicationMedication_7">sertraline</td><td ID="MedicationRoute_7">by mouth</td><td ID="MedicationRouteConcept_7">I95351</td><td ID="MedicationStartDate_7">06/07/2020</td><td ID="MedicationStopDate_7">12/13/2020</td><td ID="MedicationDosageFrequency_7">once a day</td><td ID="MedicationDuration_7">30</td><td ID="MedicationFormulaStrength_7">100 mg</td><td ID="MedicationDosageForm_7">tablet</td><td ID="MedicationDosageFormCode_7"></td><td ID="MedicationDosageDescription_7"></td><td ID="MedicationMedicationId_7">[id number]</td><td ID="MedicationAccount_7">[id number]</td><td ID="MedicationNpid_7">[id number]</td><td ID="MedicationAuthorFirstName_7">Nikole</td><td ID="MedicationAuthorLastName_7">Sourav</td><td ID="MedicationTaxonomyCode_7">[id number]</td><td ID="MedicationTaxonomyDesc_7">Nurse Practitioner</td><td ID="MedicationPhoneNumber_7">[phone]</td> [facility] ([facility]) Sertraline 100 MG Oral Tablet sertraline 06/07/2020 12:00:00 AM EST 100 mg by mouth completed <td ID="Medica tionRxNorm_5">339821</td><td ID="MedicationMedication_5">sertraline</td><td ID="MedicationRoute_5">by mouth</td><td ID="MedicationRouteConcept_5">B50470</td><td ID="MedicationStartDate_5">06/07/2020</td><td ID="MedicationStopDate_5">10/02/2020</td><td ID="MedicationDosageFrequency_5">once a day</td><td ID="MedicationDuration_5">30</td><td ID="MedicationFormulaStrength_5">100 mg</td><td ID="MedicationDosageForm_5">tablet</td><td ID="MedicationDosageFormCode_5"></td><td ID="MedicationDosageDescription_5"></td><td ID="MedicationMedicationId_5">[id number]</td><td ID="MedicationAccount_5">[id number]</td><td ID="MedicationNpid_5">[id number]</td><td ID="MedicationAuthorFirstName_5">Nikole</td><td ID="MedicationAuthorLastName_5">Sourav</td><td ID="MedicationTaxonomyCode_5">[id number]</td><td ID="MedicationTaxonomyDesc_5">Nurse Practitioner</td><td ID="MedicationPhoneNumber_5">[phone]</td> [facility] ([facility]) Sertraline 100 MG Oral Tablet sertraline 06/07/2020 12:00:00 AM EST 100 mg by mouth completed <td ID="Medica tionRxNorm_4">563732</td><td ID="MedicationMedication_4">sertraline</td><td ID="MedicationRoute_4">by mouth</td><td ID="MedicationRouteConcept_4">G78398</td><td ID="MedicationStartDate_4">06/07/2020</td><td ID="MedicationStopDate_4">10/02/2020</td><td ID="MedicationDosageFrequency_4">once a day</td><td ID="MedicationDuration_4">30</td><td ID="MedicationFormulaStrength_4">100 mg</td><td ID="MedicationDosageForm_4">tablet</td><td ID="MedicationDosageFormCode_4"></td><td ID="MedicationDosageDescription_4"></td><td ID="MedicationMedicationId_4">[id number]</td><td ID="MedicationAccount_4">[id number]</td><td ID="MedicationNpid_4">[id number]</td><td ID="MedicationAuthorFirstName_4">Nikole</td><td ID="MedicationAuthorLastName_4">Sourav</td><td ID="MedicationTaxonomyCode_4">[id number]</td><td ID="MedicationTaxonomyDesc_4">Nurse Practitioner</td><td ID="MedicationPhoneNumber_4">[phone]</td> [facility] ([facility]) gabapentin 400 MG Oral Capsule gabapentin 06/06/2020 12:00:00 AM EST 400 mg by mouth completed <td ID="Medica tionRxNorm_5">299732</td><td ID="MedicationMedication_5">gabapentin</td><td ID="MedicationRoute_5">by mouth</td><td ID="MedicationRouteConcept_5">W82822</td><td ID="MedicationStartDate_5">06/06/2020</td><td ID="MedicationStopDate_5">10/03/2020</td><td ID="MedicationDosageFrequency_5">at bedtime</td><td ID="MedicationDuration_5">30</td><td ID="MedicationFormulaStrength_5">400 mg</td><td ID="MedicationDosageForm_5">capsule</td><td ID="MedicationDosageFormCode_5"></td><td ID="MedicationDosageDescription_5"></td><td ID="MedicationMedicationId_5">[id number]</td><td ID="MedicationAccount_5">[id number]</td><td ID="MedicationNpid_5">[id number]</td><td ID="MedicationAuthorFirstName_5">Nikole</td><td ID="MedicationAuthorLastName_5">Sourav</td><td ID="MedicationTaxonomyCode_5">[id number]</td><td ID="MedicationTaxonomyDesc_5">Nurse Practitioner</td><td ID="MedicationPhoneNumber_5">[phone]</td> [facility] ([facility]) Sertraline 100 MG Oral Tablet sertraline 06/01/2020 12:00:00 AM EST 100 mg completed <td ID="Medicat ionRxNorm_3">563449</td><td ID="MedicationMedication_3">sertraline</td><td ID="MedicationRoute_3"></td><td ID="MedicationRouteConcept_3"></td><td ID="MedicationStartDate_3">06/01/2020</td><td ID="MedicationStopDate_3"></td><td ID="MedicationDosageFrequency_3"></td><td ID="MedicationDuration_3"></td><td ID="MedicationFormulaStrength_3">100 mg</td><td ID="MedicationDosageForm_3">tablet</td><td ID="MedicationDosageFormCode_3"></td><td ID="MedicationDosageDescription_3"></td><td ID="MedicationMedicationId_3">75820</td><td ID="MedicationAccount_3">[id number]</td><td ID="MedicationNpid_3">[id number]</td><td ID="MedicationAuthorFirstName_3">Ronni</td><td ID="MedicationAuthorLastName_3">Griffith</td><td ID="MedicationTaxonomyCode_3">[id number]</td><td ID="MedicationTaxonomyDesc_3">Nurse Practitioner</td><td ID="MedicationPhoneNumber_3">[phone]</td> [facility] ([facility]) Sertraline 50 MG Oral Tablet sertraline 04/29/2020 12:00:00 AM EST 50 mg by mouth completed <td ID="Medica tionRxNorm_6">485255</td><td ID="MedicationMedication_6">sertraline</td><td ID="MedicationRoute_6">by mouth</td><td ID="MedicationRouteConcept_6">D76945</td><td ID="MedicationStartDate_6">04/29/2020</td><td ID="MedicationStopDate_6">12/13/2020</td><td ID="MedicationDosageFrequency_6">once a day</td><td ID="MedicationDuration_6">30</td><td ID="MedicationFormulaStrength_6">50 mg</td><td ID="MedicationDosageForm_6">tablet</td><td ID="MedicationDosageFormCode_6"></td><td ID="MedicationDosageDescription_6"></td><td ID="MedicationMedicationId_6">05065</td><td ID="MedicationAccount_6">[id number]</td><td ID="MedicationNpid_6">[id number]</td><td ID="MedicationAuthorFirstName_6">Nikole</td><td ID="MedicationAuthorLastName_6">Sourav</td><td ID="MedicationTaxonomyCode_6">[id number]</td><td ID="MedicationTaxonomyDesc_6">Nurse Practitioner</td><td ID="MedicationPhoneNumber_6">[phone]</td> [facility] ([facility]) Sertraline 50 MG Oral Tablet sertraline 04/29/2020 12:00:00 AM EST 50 mg by mouth completed <td ID="Medica tionRxNorm_3">640046</td><td ID="MedicationMedication_3">sertraline</td><td ID="MedicationRoute_3">by mouth</td><td ID="MedicationRouteConcept_3">Y35652</td><td ID="MedicationStartDate_3">04/29/2020</td><td ID="MedicationStopDate_3">10/02/2020</td><td ID="MedicationDosageFrequency_3">once a day</td><td ID="MedicationDuration_3">30</td><td ID="MedicationFormulaStrength_3">50 mg</td><td ID="MedicationDosageForm_3">tablet</td><td ID="MedicationDosageFormCode_3"></td><td ID="MedicationDosageDescription_3"></td><td ID="MedicationMedicationId_3">[id number]</td><td ID="MedicationAccount_3">[id number]</td><td ID="MedicationNpid_3">[id number]</td><td ID="MedicationAuthorFirstName_3">Nikole</td><td ID="MedicationAuthorLastName_3">Sourav</td><td ID="MedicationTaxonomyCode_3">[id number]</td><td ID="MedicationTaxonomyDesc_3">Nurse Practitioner</td><td ID="MedicationPhoneNumber_3">[phone]</td> [facility] ([facility]) Ingrezza Ingrezza 09/15/2019 12:00:00 AM EDT 80 mg by mouth completed <td ID="MedicationRxNorm_5">4701202</td><td ID="MedicationMedication_5">Ingrezza</td><td ID="MedicationRoute_5">by mouth</td><td ID="MedicationRouteConcept_5">A16306</td><td ID="MedicationStartDate_5">09/15/2019</td><td ID="MedicationStopDate_5">11/25/2020</td><td ID="MedicationDosageFrequency_5">once a day</td><td ID="MedicationDuration_5">30</td><td ID="MedicationFormulaStrength_5">80 mg</td><td ID="MedicationDosageForm_5">capsule</td><td ID="MedicationDosageFormCode_5"></td><td ID="MedicationDosageDescription_5"></td><td ID="MedicationMedicationId_5">[id number]</td><td ID="MedicationAccount_5">[id number]</td><td ID="MedicationNpid_5">[id number]</td><td ID="MedicationAuthorFirstName_5">Nikole</td><td ID="MedicationAuthorLastName_5">Sourav</td><td ID="MedicationTaxonomyCode_5">[id number]</td><td ID="MedicationTaxonomyDesc_5">Nurse Practitioner</td><td ID="MedicationPhoneNumber_5">[phone]</td> [facility] ([facility]) John Lopez 09/15/2019 12:00:00 AM EDT 80 mg by mouth completed <td ID="MedicationRxNorm_3">1155326</td><td ID="MedicationMedication_3">Ingrezza</td><td ID="MedicationRoute_3">by mouth</td><td ID="MedicationRouteConcept_3">A26691</td><td ID="MedicationStartDate_3">09/15/2019</td><td ID="MedicationStopDate_3">05/25/2020</td><td ID="MedicationDosageFrequency_3">once a day</td><td ID="MedicationDuration_3">30</td><td ID="MedicationFormulaStrength_3">80 mg</td><td ID="MedicationDosageForm_3">capsule</td><td ID="MedicationDosageFormCode_3"></td><td ID="MedicationDosageDescription_3"></td><td ID="MedicationMedicationId_3">[id number]</td><td ID="MedicationAccount_3">[id number]</td><td ID="MedicationNpid_3">[id number]</td><td ID="MedicationAuthorFirstName_3">Nikole</td><td ID="MedicationAuthorLastName_3">Sourav</td><td ID="MedicationTaxonomyCode_3">[id number]</td><td ID="MedicationTaxonomyDesc_3">Nurse Practitioner</td><td ID="MedicationPhoneNumber_3">[phone]</td> [facility] ([facility]) John Whittingtonza 09/15/2019 12:00:00 AM EDT 80 mg by mouth completed <td ID="MedicationRxNorm_7">4663655</td><td ID="MedicationMedication_7">Ingrezza</td><td ID="MedicationRoute_7">by mouth</td><td ID="MedicationRouteConcept_7">H51394</td><td ID="MedicationStartDate_7">09/15/2019</td><td ID="MedicationStopDate_7">11/01/2020</td><td ID="MedicationDosageFrequency_7">once a day</td><td ID="MedicationDuration_7">30</td><td ID="MedicationFormulaStrength_7">80 mg</td><td ID="MedicationDosageForm_7">capsule</td><td ID="MedicationDosageFormCode_7"></td><td ID="MedicationDosageDescription_7"></td><td ID="MedicationMedicationId_7">[id number]</td><td ID="MedicationAccount_7">[id number]</td><td ID="MedicationNpid_7">[id number]</td><td ID="MedicationAuthorFirstName_7">Nikole</td><td ID="MedicationAuthorLastName_7">Sourav</td><td ID="MedicationTaxonomyCode_7">[id number]</td><td ID="MedicationTaxonomyDesc_7">Nurse Practitioner</td><td ID="MedicationPhoneNumber_7">[phone]</td> [facility] ([facility]) Melissaezza Ingrezza 09/15/2019 12:00:00 AM EDT 80 mg by mouth completed <td ID="MedicationRxNorm_2">[id number]</td><td ID="MedicationMedication_2">Ingrezza</td><td ID="MedicationRoute_2">by mouth</td><td ID="MedicationRouteConcept_2">W32310</td><td ID="MedicationStartDate_2">09/15/2019</td><td ID="MedicationStopDate_2">01/21/2021</td><td ID="MedicationDosageFrequency_2">once a day</td><td ID="MedicationDuration_2">30</td><td ID="MedicationFormulaStrength_2">80 mg</td><td ID="MedicationDosageForm_2">capsule</td><td ID="MedicationDosageFormCode_2"></td><td ID="MedicationDosageDescription_2"></td><td ID="MedicationMedicationId_2">90011</td><td ID="MedicationAccount_2">[id number]</td><td ID="MedicationNpid_2">[id number]</td><td ID="MedicationAuthorFirstName_2">Nikole</td><td ID="MedicationAuthorLastName_2">Sourav</td><td ID="MedicationTaxonomyCode_2">[id number]</td><td ID="MedicationTaxonomyDesc_2">Nurse Practitioner</td><td ID="MedicationPhoneNumber_2">[phone]</td> [facility] ([facility]) Nelsyza Ingrezza 09/15/2019 12:00:00 AM EDT 80 mg by mouth completed <td ID="MedicationRxNorm_6">[id number]</td><td ID="MedicationMedication_6">Ingrezza</td><td ID="MedicationRoute_6">by mouth</td><td ID="MedicationRouteConcept_6">H93016</td><td ID="MedicationStartDate_6">09/15/2019</td><td ID="MedicationStopDate_6">11/01/2020</td><td ID="MedicationDosageFrequency_6">once a day</td><td ID="MedicationDuration_6">30</td><td ID="MedicationFormulaStrength_6">80 mg</td><td ID="MedicationDosageForm_6">capsule</td><td ID="MedicationDosageFormCode_6"></td><td ID="MedicationDosageDescription_6"></td><td ID="MedicationMedicationId_6">[id number]</td><td ID="MedicationAccount_6">[id number]</td><td ID="MedicationNpid_6">[id number]</td><td ID="MedicationAuthorFirstName_6">Nikole</td><td ID="MedicationAuthorLastName_6">Sourav</td><td ID="MedicationTaxonomyCode_6">[id number]</td><td ID="MedicationTaxonomyDesc_6">Nurse Practitioner</td><td ID="MedicationPhoneNumber_6">[phone]</td> [facility] ([facility]) quetiapine 400 MG Oral Tablet [Seroquel] Seroquel 04/17/2016 12 :00:00 AM EST 400 mg by mouth completed <td ID="Me dicationRxNorm_2">206042</td><td ID="MedicationMedication_2">Seroquel</td><td ID="MedicationRoute_2">by mouth</td><td ID="MedicationRouteConcept_2">J69588</td><td ID="MedicationStartDate_2">04/17/2016</td><td ID="MedicationStopDate_2">01/27/2021</td><td ID="MedicationDosageFrequency_2">at bedtime</td><td ID="MedicationDuration_2">9</td><td ID="MedicationFormulaStrength_2">400 mg</td><td ID="MedicationDosageForm_2">tablet</td><td ID="MedicationDosageFormCode_2"></td><td ID="MedicationDosageDescription_2"></td><td ID="MedicationMedicationId_2">[id number]</td><td ID="MedicationAccount_2">[id number]</td><td ID="MedicationNpid_2">[id number]</td><td ID="MedicationAuthorFirstName_2">Nikole</td><td ID="MedicationAuthorLastName_2">Sourav</td><td ID="MedicationTaxonomyCode_2">[id number]</td><td ID="MedicationTaxonomyDesc_2">Nurse Practitioner</td><td ID="MedicationPhoneNumber_2">[phone]</td> [facility] ([facility]) Omeprazole 20 MG Delayed Release Oral Ta blet [Prilosec] Prilosec OTC 20 mg tablet,delayed release take one tablet by mouth daily Prilosec OTC 20 mg tablet,delayed release take one tablet by mouth daily completed omeprazole 20 MG Delayed Release Oral Tablet [Prilosec] [facility] ([facility]) Omeprazole 20 MG Delayed Release Oral Ta blet [Prilosec] Prilosec OTC 20 mg tablet,delayed release take one tablet by mouth daily Prilosec OTC 20 mg tablet,delayed release take one tablet by mouth daily completed omeprazole 20 MG Delayed Release Oral Tablet [Prilosec] [facility]) Omeprazole 20 MG Delayed Release Oral Ta blet [Prilosec] Prilosec OTC 20 mg tablet,delayed release take one tablet by mouth daily Prilosec OTC 20 mg tablet,delayed release take one tablet by mouth daily completed omeprazole 20 MG Del[facility] Release [facility] MG Delayed Release Oral Ta blet [Prilosec] Prilosec OTC 20 mg tablet,delayed release take one tablet by mouth daily Prilosec OTC 20 mg tablet,delayed release take one tablet by mouth daily completed omeprazole 20 MG Delayed Release [facility]t [facility] Om[facility] 20 MG Delayed Release Oral Ta blet [Prilosec] Prilosec OTC 20 mg tablet,delayed release take one tablet by mouth daily Prilosec OTC 20 mg tablet,delayed release take one tablet by mouth daily completed omeprazole 20 MG Delayed Release Oral Tablet [Prilosec] [facility]URA ([facility]) Omeprazole 20 MG Delayed Release Oral Ta blet [Prilosec] Prilosec OTC 20 mg tablet,delayed release take one tablet by mouth daily Prilosec OTC 20 mg tablet,delayed release take one tablet by mouth daily completed omeprazole 20 MG Delayed Release Oral Tablet [Prilosec] LAURA ([facility]) Omeprazole 20 MG Delayed Release Oral Ta blet [Prilosec] Prilosec OTC 20 mg tablet,delayed release take one tablet by mouth daily Prilosec OTC 20 mg tablet,delayed release take one tablet by mouth daily completed omeprazole 20 MG Delayed Release Oral Tablet [Prilosec] [facility]URA ([facility]) Insurance Providers Payer name Policy type / Coverage type Policy ID Covered republican ID Covered republican's relationship to frausto Policy [employer] Plan Information MEDICAID UNAVAILABLE Patient UNAVAILA BLE MEDICAID [id number] Patient [id number] [facility] [id number] Patient [id number] MEDICAID [id number] Patient [id number] Medicaid P [id number] S [id number] Medicaid S [id number] S [id number] Medicaid S [id number] S [id number] MEDICAID [id number] S [id number] Managed Care - MVP P [id number] S [id number] [facility] ANA [id number] S [id number] Managed Care - MVP P [id number] S [id number] Medicaid S [id number] S [id number] Managed Care - Community Plan [facility] P [id number] S [id number] Medicaid S [id number] S [id number] [facility] I [id number] Self [id number] [facility] MEDICAID [id number] S [id number] Managed Care - Community Plan [facility] P [id number] S [id number] Medicaid P [id number] Medicaid P [id number] S [id number] MEDICAID [id number] [facility](MCAID) O [id number] S [id number] MEDICAID [id number] SP [id number] Medicaid Dental S UNAVAILABLE S UN AVAILABLE [facility] MEDICAID [id number] SP [id number] [facility] [id number] SP [id number] MEDICAID [id number] SP [id number] [facility] [id number] SP [id number] MEDICAID [id number] S [id number] MEDICAID [id number] SP [id number] [facility] Health Maintenance Organization (HMO) [id number] Self [id number] Managed Care - Community Plan [facility] P [id number] S [id number] [facility] S UNAVAILABLE [facility] MEDICAID [id number] S [id number] Managed Care - [facility] S [id number] S [id number] ANS-Medicaid [id number] ANSI-Medicaid [id number] [facility] MEDICAID [id number] S [id number] Managed Care - Community Plan [facility] P [id number] S [id number] [facility] [id number] SP [id number] [facility] [id number] [id number] [facility] ANA O [id number] S [id number] MEDICAID ANA [id number] MEDICAID ANA [id number] S [id number] Problems, Conditions, and Diagnoses Code Display Name Description Problem Type Effective Dates Data Source(s) G24.01 Drug induced subacute dyskinesia Tardive Dyskinesia Co ndition 01/25/2021 12:00:00 AM EDT [facility] ([facility]) F20.0 Paranoid schizophrenia Paranoid schizophrenia Conditio n 01/25/2021 12:00:00 AM EDT [facility] ([facility]) [id number] Patient asked to attend Patient Asked to Attend Proble m 05/02/2020 12:00:00 AM EST [facility] ([facility]) [id number] Screening for osteoporosis Screening for Osteoporosis Problem 05/02/2020 12:00:00 AM EST [facility] ([facility]) [id number] Screening for malignant neoplasm of colo n Screening for Malignant Neoplasm of Colon Problem 05/02/2020 12:00:00 AM EST [facility] ([facility]) [id number] Fracture of humerus Fracture of Humerus Problem 0 05/02/2020 12:00:00 AM EST [facility] ([facility]) [id number] Abnormal gait Abnormal Gait Problem 05/02/2020 12:00:00 AM EST [facility] ([facility]) [id number] Patient asked to attend Patient Asked to Attend [facility] 05/02/2020 12:00:00 AM EST [facility] ([facility]) [id number] Screening for osteoporosis Screening for Osteoporosis Problem 05/02/2020 12:00:00 AM EST [facility] ([facility]) [id number] Screening for malignant neoplasm of colo n Screening for Malignant Neoplasm of Colon Problem 05/02/2020 12:00:00 AM EST [facility] ([facility]) [id number] Fracture of humerus Fracture of Humerus Problem 0 05/02/2020 12:00:00 AM EST [facility] ([facility]) [id number] Abnormal gait Abnormal Gait Problem 05/02/2020 12:00:00 AM EST [facility] ([facility]) [id number] Patient asked to attend Patient Asked to Attend [facility] 05/02/2020 12:00:00 AM EST [facility] ([facility]) [id number] Screening for osteoporosis Screening for Osteoporosis Problem 05/02/2020 12:00:00 AM EST [facility] ([facility]) [id number] Screening for malignant neoplasm of colo n Screening for Malignant Neoplasm of Colon Problem 05/02/2020 12:00:00 AM EST [facility] ([facility]) [id number] Fracture of humerus Fracture of Humerus Problem 0 05/02/2020 12:00:00 AM EST [facility] ([facility]) [id number] Abnormal gait Abnormal Gait Problem 05/02/2020 12:00:00 AM EST [facility] ([facility]) [id number] Patient asked to attend Patient Asked to Attend [facility] 05/02/2020 12:00:00 AM EST [facility] ([facility]) [id number] Screening for osteoporosis Screening for Osteoporosis Problem 05/02/2020 12:00:00 AM EST [facility] ([facility]) [id number] Screening for malignant neoplasm of colo n Screening for Malignant Neoplasm of Colon Problem 05/02/2020 12:00:00 AM EST [facility] ([facility]) [id number] Fracture of humerus Fracture of Humerus Problem 0 05/02/2020 12:00:00 AM EST [facility] ([facility]) [id number] Abnormal gait Abnormal Gait Problem 05/02/2020 12:00:00 AM EST [facility] ([facility]) [id number] Patient asked to attend Patient Asked to Attend [facility] 05/02/2020 12:00:00 AM EST [facility] ([facility]) [id number] Screening for osteoporosis Screening for Osteoporosis Problem 05/02/2020 12:00:00 AM EST [facility] ([facility]) [id number] Screening for malignant neoplasm of colo n Screening for Malignant Neoplasm of Colon Problem 05/02/2020 12:00:00 AM EST [facility] ([facility]) [id number] Fracture of humerus Fracture of Humerus Problem 0 05/02/2020 12:00:00 AM EST [facility] ([facility]) [id number] Abnormal gait Abnormal Gait Problem 05/02/2020 12:00:00 AM EST [facility] ([facility]) [id number] Patient asked to attend Patient Asked to Attend [facility] 05/02/2020 12:00:00 AM EST [facility] ([facility]) [id number] Screening for osteoporosis Screening for Osteoporosis Problem 05/02/2020 12:00:00 AM EST [facility] ([facility]) [id number] Screening for malignant neoplasm of colo n Screening for Malignant Neoplasm of Colon Problem 05/02/2020 12:00:00 AM EST [facility] ([facility]) [id number] Fracture of humerus Fracture of Humerus Problem 0 05/02/2020 12:00:00 AM EST [facility] ([facility]) [id number] Abnormal gait Abnormal Gait Problem 05/02/2020 12:00:00 AM EST [facility] ([facility]) [id number] Patient asked to attend Patient Asked to Attend [facility] 05/02/2020 12:00:00 AM EST [facility] ([facility]) [id number] Screening for osteoporosis Screening for Osteoporosis Problem 05/02/2020 12:00:00 AM EST [facility] ([facility]) [id number] Screening for malignant neoplasm of colo n Screening for Malignant Neoplasm of Colon Problem 05/02/2020 12:00:00 AM EST [facility] ([facility]) [id number] Fracture of humerus Fracture of Humerus Problem 0 05/02/2020 12:00:00 AM EST [facility] ([facility]) [id number] Abnormal gait Abnormal Gait Problem 05/02/2020 12:00:00 AM EST [facility] ([facility]) [id number] Hypertensive disorder Hypertensive Disorder Problem 01/28/2020 06:18:44 PM EDT [facility] ([facility]) [id number] Depressive disorder Depressive Disorder Problem 1 06:18:44 PM EDT [facility] ([facility]) [id number] Hyperlipidemia Hyperlipidemia Problem 01/28/2020 06:18: 44 PM EDT [facility] ([facility]) [id number] Hypertensive disorder Hypertensive Disorder Problem 01/28/2020 06:18:44 PM EDT [facility] ([facility]) [id number] Depressive disorder Depressive Disorder Problem 1 06:18:44 PM EDT [facility] ([facility]) [id number] Hyperlipidemia Hyperlipidemia Problem 01/28/2020 06:18: 44 PM EDT [facility] ([facility]) [id number] Hypertensive disorder Hypertensive Disorder Problem 01/28/2020 06:18:44 PM EDT [facility] ([facility]) [id number] Depressive disorder Depressive Disorder Problem 1 06:18:44 PM EDT [facility] ([facility]) [id number] Hyperlipidemia Hyperlipidemia Problem 01/28/2020 06:18: 44 PM EDT [facility] ([facility]) [id number] Hypertensive disorder Hypertensive Disorder Problem 01/28/2020 06:18:44 PM EDT [facility] ([facility]) [id number] Depressive disorder Depressive Disorder Problem 1 06:18:44 PM EDT [facility] ([facility]) [id number] Hyperlipidemia Hyperlipidemia Problem 01/28/2020 06:18: 44 PM EDT [facility] ([facility]) [id number] Hypertensive disorder Hypertensive Disorder Problem 01/28/2020 06:18:44 PM EDT [facility] ([facility]) [id number] Depressive disorder Depressive Disorder Problem 1 06:18:44 PM EDT [facility] ([facility]) [id number] Hyperlipidemia Hyperlipidemia Problem 01/28/2020 06:18: 44 PM EDT [facility] ([facility]) [id number] Hypertensive disorder Hypertensive Disorder Problem 01/28/2020 06:18:44 PM EDT [facility] ([facility]) [id number] Depressive disorder Depressive Disorder Problem 1 06:18:44 PM EDT [facility] ([facility]) [id number] Hyperlipidemia Hyperlipidemia Problem 01/28/2020 06:18: 44 PM EDT [facility]UR[facility] ([facility]) [id number] Hypertensive disorder Hypertensive Disorder Problem 01/28/2020 06:18:44 PM EDT [facility] ([facility]) [id number] Depressive disorder Depressive Disorder Problem 1 06:18:44 PM EDT [facility] ([facility]) [id number] Hyperlipidemia Hyperlipidemia Problem 01/28/2020 06:18: 44 PM EDT [place] ([facility]) Surgeries/Procedures Procedure Description Date Indications Data Source(s) OFFICE OUTPATIENT VISIT 15 MINUTES 01/25 12:00:00 AM EDT - 01/25/2021 12:00:00 AM EDT [facility] ([facility]) Psychotherapy ADD ON - 30 Minutes 01/25/2021 12:00:00 AM EDT [facility] ([facility]) OFFICE OUTPATIENT VISIT 15 MINUTES 01/25/2021 12:00:00 AM EDT [facility] ([facility]) THERAPEUTIC PROPHYLACTIC/DX INJECTION SUBQ/IM 12/29/2020 12:00:00 AM EDT - 12/29/2020 12:00:00 AM EDT [facility] ([facility]) THERAPEUTIC PROPHYLACTIC/DX INJECTION SUBQ/IM 12/30/19 12:00:00 AM EDT [facility] ([facility]) X-Ray Humerus Two Views 11/22/2020 12:00:00 AM EDT [facility] ([facility]) OFFICE OUTPATIENT VISIT 15 MINUTES 11/22/2020 12:00:00 AM EDT [facility] ([facility]) LDCT, chest, for lung cancer screening 11/11/2020 12:0 0:00 AM EDT [facility] ([facility]) X-Ray Humerus Two Views 10/07/2020 12:00:00 AM EDT [facility] ([facility] ) OFFICE OUTPATIENT VISIT 15 MINUTES 10/07/2020 12:00:00 AM EDT [facility] ([facility] ) Comprehensive medication services, per 15 minutes 10/06/2020 12:00:00 AM EDT - 10/06/2020 12:00:00 AM EDT [facility] ([facility]) Comprehensive medication services, per 15 minutes 10/06/2020 12:00:00 AM EDT [facility] ([facility]) OFFICE OUTPATIENT VISIT 15 MINUTES 08/29 12:00:00 AM EDT - 08/29/2020 12:00:00 AM EDT [facility] ([facility]) OFFICE OUTPATIENT VISIT 15 MINUTES 08/29/2020 12:00:00 AM EDT [facility] ([facility]) X-Ray Humerus Two Views 08/26/2020 12:00:00 AM EDT [facility] ([facility] ) OFFICE OUTPATIENT VISIT 15 MINUTES 08/26/2020 12:00:00 AM EDT [facility] ([facility] ) X-Ray Humerus Two Views 07/19/2020 12:00:00 AM EDT [facility] ([facility] ) OFFICE OUTPATIENT VISIT 25 MINUTES 07/19/2020 12:00:00 AM EDT [facility] ([facility] ) THERAPEUTIC PROPHYLACTIC/DX INJECTION SUBQ/IM 07/14/2020 12:00:00 AM EDT - 07/14/2020 12:00:00 AM EDT [facility] ([facility]) THERAPEUTIC PROPHYLACTIC/DX INJECTION SUBQ/IM 07/15/19 12:00:00 AM EDT [facility] ([facility]) [facility] Telemed E/M Lvl 3--Est pt 07/04/2020 12:00:00 AM EDT - 07/04/2020 12:00:00 AM EDT [facility] ([facility]) MHC Telemed E/M Lvl 3--Est pt 07/04/2020 12:00:00 AM E DT [facility] ([facility]) RADEX SHOULDER COMPLETE MINIMUM 2 VIEWS 06/20/2020 12: 00:00 AM EST [facility] ([facility]) MHC Telemed E/M Lvl 3--Est pt 06/06/2020 12:00:00 AM EST - 06/06/2020 12:00:00 AM EST [facility] ([facility]) [facility] Telemed E/M Lvl 3--Est pt 06/06/2020 12:00:[address] [facility] ([facility]) THERAPEUTIC PROPHYLACTIC/DX INJECTION SUBQ/IM 06/02/2020 12:00:00 AM EST - 06/02/2020 12:00:00 AM EST [facility] ([facility]) THERAPEUTIC PROPHYLACTIC/DX INJECTION SUBQ/IM 05/23/19 12:00:00 AM EST [facility] ([facility]) RADEX SHOULDER COMPLETE MINIMUM 2 VIEWS 05/04/2020 12: 00:00 AM EST [facility] ([facility]) DEXA, axial skeleton + vertebral fracture assessment 04/28/2020 12:00:00 AM EST [facility] ([facility]) DEXA, axial skeleton + vertebral fracture assessment 04/28/2020 12:00:00 AM EST [facility] ([facility]) DEXA, axial skeleton + vertebral fracture assessment 04/28/2020 12:00:00 AM EST [facility] ([facility]) DEXA, axial skeleton + vertebral fracture assessment 04/28/2020 12:00:00 AM EST [facility] ([facility]) DEXA, axial skeleton + vertebral fracture assessment 04/28/2020 12:00:00 AM EST [facility] ([facility]) DEXA, axial skeleton + vertebral fracture assessment 04/28/2020 12:00:00 AM EST [facility] ([facility]) DEXA, axial skeleton + vertebral fracture assessment 04/28/2020 12:00:00 AM EST [facility] ([facility]) RADEX HAND MINIMUM 3 VIEWS 04/11/2020 12:00:00 AM EST [facility] ([facility]) CLTX HUMERAL SHFT FX W/MANJ W/WO SKELETAL TRACJ 2019 12:00:00 AM EST [facility] ([facility]) EMERGENCY DEPARTMENT VISIT MODERATE SEVERITY 0 12:00:00 AM EST [facility] ([facility]) Comprehensive medication services, per 15 minutes 04/06/2020 12:00:00 AM EST - 04/06/2020 12:00:00 AM EST [facility] ([facility]) Comprehensive medication services, per 15 minutes 04/06/2020 12:00:00 AM EST [facility] ([facility]) Comprehensive medication services, per 15 minutes 01/13/2020 12:00:00 AM EDT - 01/13/2020 12:00:00 AM EDT [facility] ([facility]) Comprehensive medication services, per 15 minutes 01/13/2020 12:00:00 AM EDT [facility] ([facility]) MHC Telemed E/M Lvl 3--Est pt 12/30/2019 12:00:00 AM EDT - 12/30/2019 12:00:00 AM EDT [facility] ([facility]) MHC Telemed E/M Lvl 3--Est pt 12/30/2019 12:00:00 AM E DT [facility] ([facility]) Comprehensive medication services, per 15 minutes 12/18/2019 12:00:00 AM EDT - 12/18/2019 12:00:00 AM EDT [facility] ([facility]) Comprehensive medication services, per 15 minutes 12/18/2019 12:00:00 AM EDT [facility] ([facility]) Results ID Date Data Source [id number] 12/01/2020 12:00:00 AM EDT [facility] ([facility]) Name Value Range Interpretation Code Description Data Dasha rce(s) Supporting Document(s) HIV 1+2 Ab+HIV1 p24 Ag [Presence] in Serum or Plasma b y Immunoassay non-reactive non-reactive HIV Ag/Ab, 4TH Gen [facility] ([facility]) ID Date Data Source [id number] 12/01/2020 12:00:00 AM EDT [facility]) Name Value Range Interpretation Code Description Data Dasha rce(s) Supporting Document(s) Iron binding capacity [Mass/volume] in Serum or Plasma 349 m cg/dL_(calc) 250-425 Iron Binding Capacity [facility] ([facility]) Iron saturation [Mass Fraction] in Serum or Plasma 21 %_(calc) 20- 48 % Saturation [place] ([facility]) Iron [Mass/volume] in Serum or Plasma 73 mcg/dL 50-180 Iron, Total [facility] ([facility]) Ferritin [Mass/volume] in Serum or Plasma 103 NG/mL 38-380 Ferritin [facility]) ID Date Data Source [id number] 12/01/2020 12:00:00 AM EDT [facility]) Name Value Range Interpretation Code Description Data Dasha rce(s) Supporting Document(s) Calcidiol [Mass/volume] in Serum or Plasma 51 NG/mL 30-100 Vitamin D,25-Oh,total,ia [facility]) ID Date Data Source [id number] 12/01/2020 12:00:00 AM EDT [facility]) Name Value Range Interpretation Code Description Data Dasha rce(s) Supporting Document(s) Cobalamin (Vitamin B12) [Mass/volume] in Serum or Plasma 458 pg/mL 200-1100 Vitamin B12 [place] ([facility]) Folate [Mass/volume] in Serum or Plasma 13.5 NG/mL Folate, Serum [facility]) ID Date Data Source [id number] 12/01/2020 12:00:00 AM EDT [facility]) Name Value Range Interpretation Code Description Data Dasha rce(s) Supporting Document(s) Hepatitis C virus Ab [Presence] in Serum or Plasma by Immuno assay non-reactive non-reactive Hepatitis C Antibody [facility] ([facility]) Hepatitis C virus Ab Signal/Cutoff in Serum or Plasma by Immunoassa y <1.00 Index [facility] ([facility]) ID Date Data Source [id number] 12/01/2020 12:00:00 AM EDT [facility] ([facility]) Name Value Range Interpretation Code Description Data Dasha rce(s) Supporting Document(s) Leukocytes [#/volume] in Blood by Automated count 5.9 thousand/uL 3 .8-10.8 White Blood Cell Count [facility] ([facility]) Hematocrit [Volume Fraction] of Blood by Automated count 42.4 % 38.5-50.0 Hematocrit [place] ([facility]) Hemoglobin [Mass/volume] in Blood 14.1 g/dL 13.2-17.1 He moglobin [facility] ([facility]) Erythrocytes [#/volume] in Blood by Automated count 4.62 million/uL 4.20-5.80 Red Blood Cell Count [facility] ([facility]) Erythrocyte mean corpuscular hemoglobin [Entitic mass] by Automated count 30.5 pg 27.0-33.0 Mch [facility] ([facility]) Erythrocyte mean corpuscular volume [Entitic volume] by Auto mated count 91.8 fL 80.0-100.0 Mcv [facility] ([facility]) Erythrocyte mean corpuscular hemoglobin concentration [Mass/volume] by Automated count 33.3 g/dL 32.0-36.0 Mchc [facility] ([facility]) Erythrocyte distribution width [Ratio] by Automated count 12.8 % 11.0-15.0 Rdw [facility] ([facility]) Platelet mean volume [Entitic volume] in Blood by Dora 10.6 f L 7.5-12.5 Mpv [facility] ([facility]) Platelets [#/volume] in Blood by Automated count 289 thousand/uL 14 0-400 Platelet Count [facility] ([facility]) Monocytes [#/volume] in Blood by Automated count 443 cells/uL 200-9 50 [facility] Lymphocytes [#/volume] in Blood by Automated count 1322 cells/uL 85 0-3900 Absolute Lymphocytes [facility] ([facility]) Neutrophils [#/volume] in Blood by Automated count 3977 cells/uL 15 00-7800 Absolute Neutrophils [facility] ([facility]) Basophils [#/volume] in Blood by Automated count 59 cells/uL 0-200 Absolute Basophils [facility] ([facility]) Eosinophils [#/volume] in Blood by Automated count 100 cells/uL 15- 500 Absolute Eosinophils [facility] ([facility]) Neutrophils/100 leukocytes in Blood by Automated count 67.4 % 38-80 Neutrophils [place] ([facility]) Lymphocytes/100 leukocytes in Blood by Automated count 22.4 % 15-49 Lymphocytes [facility]) Eosinophils/100 leukocytes in Blood by Automated count 1.7 % 0-8 Eosinophils [facility] ([facility]) Monocytes/100 leukocytes in Blood by Automated count 7.5 % 0-13 Monocytes [facility] ([facility]) Basophils/100 leukocytes in Blood by Automated count 1.0 % 0-2 Basophils [place] ([facility]) ID Date Data Source [id number] 12/01/2020 12:00:00 AM EDT [facility]) Name Value Range Interpretation Code Description Data Dasha rce(s) Supporting Document(s) Glucose [Mass/volume] in Serum or Plasma 87 mg/dL 65-99 [facility] Urea nitrogen [Mass/volume] in Serum or Plasma 14 mg/dL 7-25 Urea Nitrogen (BUN) [facility]) Creatinine [Mass/volume] in Serum or Plasma 0.86 mg/dL 0.70-1.33 Creatinine [facility]) Glomerular filtration rate/1.73 sq M.pre dicted among non-blacks [Volume Rate/Area] in Serum, Plasma or Blood by Creatinine-based formula (CKD-EPI) 100 mL/min/1.73m2 > or = 60 eGFR Non-afr. [place]uran [facility] ([facility]) Glomerular filtration rate/1.73 sq M.pre dicted among blacks [Volume Rate/Area] in Serum, Plasma or Blood by Creatinine-based formula (CKD-EPI) 116 mL/min/1.73m2 > or = 60 eGFR [facility] ([facility]) Potassium [Moles/volume] in Serum or Plasma 4.3 mmol/L 3.5-5.3 Potassium [facility] ([facility]) Urea nitrogen/Creatinine [Mass Ratio] in Serum or Plasma not applic able 6-22 BUN/creatinine Ratio [facility] ([facility]) Sodium [Moles/volume] in Serum or Plasma 140 mmol/L 135-146 Sodium [facility] ([facility]) Chloride [Moles/volume] in Serum or Plasma 102 mmol/L 98-110 Chloride [facility] ([facility]) Carbon dioxide, total [Moles/volume] in Serum or Plasma 29 mmol/L 20-32 Carbon Dioxide [facility] ([facility]) Calcium [Mass/volume] in Serum or Plasma 9.6 mg/dL 8.6-10.3 Calcium [facility] ([facility]) Protein [Mass/volume] in Serum or Plasma 7.3 g/dL 6.1-8.1 Protein, Total [facility] ([facility]) Albumin/Globulin [Mass Ratio] in Serum or Plasma 1.8 (calc) 1.0-2 .5 Albumin/globulin Ratio [place] ([facility]) Globulin [Mass/volume] in Serum by calculation 2.6 g/dL_(calc) 1.9- 3.7 Globulin [facility] ([facility]) Albumin [Mass/volume] in Serum or Plasma 4.7 g/dL 3.6-5.1 Albumin [place] ([facility]) Bilirubin.total [Mass/volume] in Serum or Plasma 0.4 mg/dL 0.2-1 .2 Bilirubin, Total [facility] ([facility]) Aspartate aminotransferase [Enzymatic activity/volume] in Serum or Plasma 12 U/L 10-35 Ast [facility] ([facility]) Alkaline phosphatase [Enzymatic activity/volume] in Serum or Plasma 89 U/L 35-144 Alkaline Phosphatase [facility] ([facility]) Alanine aminotransferase [Enzymatic activity/volume] in Seru m or Plasma 9 U/L 9-46 Alt [facility] ([facility]) ID Date Data Source [id number] 12/01/2020 12:00:00 AM EDT [facility] ([facility]) Name Value Range Interpretation Code Description Data Dasha rce(s) Supporting Document(s) Thyrotropin [Units/volume] in Serum or Plasma 0.43 mIU/L 0.40-4.50 Tsh [facility] ([facility]) Thyroxine (T4) free [Mass/volume] in Serum or Plasma 0.8 NG/dL 0 .8-1.8 T4, Free [facility] ([facility]) ID Date Data Source [id number] 12/01/2020 12:00:00 AM EDT [place] ([facility]) Name Value Range Interpretation Code Description Data Dasha rce(s) Supporting Document(s) Cholesterol [Mass/volume] in Serum or Plasma 176 mg/dL <200 Cholesterol, Total [facility] ([facility]) Triglyceride [Mass/volume] in Serum or Plasma 137 mg/dL <150 Triglycerides [facility] ([facility]) Cholesterol in HDL [Mass/volume] in Serum or Plasma 34 mg/dL > or = 40 Below low normal HDL Cholesterol [facility] ([facility]) Cholesterol.total/Cholesterol in HDL [Mass Ratio] in Serum o r Plasma 5.2 calc <5.0 Above high normal Chol/hdlc Ratio [facility] ([facility]) Cholesterol in LDL [Mass/volume] in Serum or Plasma by calculation 117 mg/dL_(calc) <100 Above high normal LDL-cholesterol [facility] ([facility]) Cholesterol non HDL [Mass/volume] in Serum or Plasma 142 mg/dL_( calc) <130 Above high normal Non HDL Cholesterol [facility] ([facility]) ID Date Data Source [id number] 08/30/2020 10:12:00 AM EDT [facility]) Name Value Range Interpretation Code Description Data Dasha rce(s) Supporting Document(s) Glucose [Mass/volume] in Serum or Plasma 90 mg/dL 65-99 Glucose [facility] ([facility]) Urea nitrogen [Mass/volume] in Serum or Plasma 18 mg/dL 7-25 Urea Nitrogen (BUN) [facility] ([facility]) Glomerular filtration rate/1.73 sq M.pre dicted among non-blacks [Volume Rate/Area] in Serum, Plasma or Blood by Creatinine-based formula (CKD-EPI) 101 mL/min/1.73m2 > or = 60 eGFR Non-afr. [place] [facility] ([facility]) Creatinine [Mass/volume] in Serum or Plasma 0.85 mg/dL 0.70-1.33 Creatinine [facility] ([facility]) Glomerular filtration rate/1.73 sq M.pre dicted among blacks [Volume Rate/Area] in Serum, Plasma or Blood by Creatinine-based formula (CKD-EPI) 117 mL/min/1.73m2 > or = 60 eGFR [facility]URA ([facility]) Urea nitrogen/Creatinine [Mass Ratio] in Serum or Plasma not applic able 6-22 BUN/creatinine Ratio [facility] ([facility]) Sodium [Moles/volume] in Serum or Plasma 140 mmol/L 135-146 Sodium [place] ([facility]) Chloride [Moles/volume] in Serum or Plasma 101 mmol/L 98-110 Chloride [facility] ([facility]) Potassium [Moles/volume] in Serum or Plasma 4.7 mmol/L 3.5-5.3 Potassium [facility] ([facility]) Calcium [Mass/volume] in Serum or Plasma 9.9 mg/dL 8.6-10.3 Calcium [facility] ([facility]) Protein [Mass/volume] in Serum or Plasma 7.2 g/dL 6.1-8.1 [facility], [facility] Carbon dioxide, total [Moles/volume] in Serum or Plasma 26 mmol/L 20-32 Carbon Dioxide [facility] ([facility]) Albumin [Mass/volume] in Serum or Plasma 4.7 g/dL 3.6-5.1 Albumin [facility] ([facility]) Globulin [Mass/volume] in Serum by calculation 2.5 g/dL_(calc) 1.9- 3.7 Globulin [facility] ([facility]) Alkaline phosphatase [Enzymatic activity/volume] in Serum or Plasma 139 U/L 35-144 Alkaline Phosphatase [facility] ([facility]) Albumin/Globulin [Mass Ratio] in Serum or Plasma 1.9 (calc) 1.0-2 .5 Albumin/globulin Ratio [facility] ([facility]) Bilirubin.total [Mass/volume] in Serum or Plasma 0.4 mg/dL 0.2-1 .2 Bilirubin, Total [facility] ([facility]) Alanine aminotransferase [Enzymatic activity/volume] in Seru m or Plasma 14 U/L 9-46 Alt [facility] ([facility]) Aspartate aminotransferase [Enzymatic activity/volume] in Serum or Plasma 19 U/L 10-35 Ast [facility] ([facility]) ID Date Data Source [id number] 08/30/2020 10:12:00 AM EDT [place] ([facility]) Name Value Range Interpretation Code Description Data Dasha rce(s) Supporting Document(s) Cholesterol [Mass/volume] in Serum or Plasma 174 mg/dL <200 Cholesterol, Total [place]A ([facility]) Cholesterol in HDL [Mass/volume] in Serum or Plasma 33 mg/dL > or = 40 Below low normal HDL Cholesterol [facility]URA ([facility]) Cholesterol in LDL [Mass/volume] in Serum or Plasma by calculation 111 mg/dL_(calc) <100 Above high normal LDL-cholesterol [facility] ([facility]) Triglyceride [Mass/volume] in Serum or Plasma 181 mg/dL <150 Above high normal Triglycerides [facility] ([facility]) Cholesterol non HDL [Mass/volume] in Serum or Plasma 141 mg/dL_( calc) <130 Above high normal Non HDL Cholesterol [facility] ([facility]) Cholesterol.total/Cholesterol in HDL [Mass Ratio] in Serum o r Plasma 5.3 calc <5.0 Above high normal Chol/hdlc Ratio [facility] ([facility]) ID Date Data Source [id number] 08/30/2020 10:12:00 AM EDT [place] ([facility]) Name Value Range Interpretation Code Description Data Dasha rce(s) Supporting Document(s) Hemoglobin A1c/Hemoglobin.total in Blood 5.0 %_of_total_HGB <5.7 Hemoglobin a1C [place] ([facility]) ID Date Data Source [id number] 08/30/2020 10:12:00 AM EDT [place] ([facility]) Name Value Range Interpretation Code Description Data Dasha rce(s) Supporting Document(s) Calcidiol [Mass/volume] in Serum or Plasma 43 NG/mL 30-100 Vitamin D,25-Oh,total,ia [place] ([facility]) ID Date Data Source [id number] 08/30/2020 10:12:00 AM EDT [place] ([facility]) Name Value Range Interpretation Code Description Data Dasha rce(s) Supporting Document(s) Leukocytes [#/volume] in Blood by Automated count 8.5 thousand/uL 3 .8-10.8 White Blood Cell Count [place]URA ([facility]) Erythrocytes [#/volume] in Blood by Automated count 4.63 million/uL 4.20-5.80 Red Blood Cell Count [place] ([facility]) Hemoglobin [Mass/volume] in Blood 14.1 g/dL 13.2-17.1 He moglobin [place] ([facility]) Hematocrit [Volume Fraction] of Blood by Automated count 40.6 % 38.5-50.0 Hematocrit [facility] ([facility]) Erythrocyte mean corpuscular hemoglobin concentration [Mass/volume] by Automated count 34.7 g/dL 32.0-36.0 Mchc [facility] ([facility]) Erythrocyte mean corpuscular hemoglobin [Entitic mass] by Automated count 30.5 pg 27.0-33.0 Mch [place] ([facility]) Erythrocyte mean corpuscular volume [Entitic volume] by Auto mated count 87.7 fL 80.0-100.0 Mcv [place] ([facility]) Erythrocyte distribution width [Ratio] by Automated count 14.3 % 11.0-15.0 Rdw [place] ([facility]) Platelets [#/volume] in Blood by Automated count 369 thousand/uL 14 0-400 Platelet Count [place] ([facility]) Platelet mean volume [Entitic volume] in Blood by Dora 10.3 f L 7.5-12.5 Mpv [place] ([facility]) Neutrophils [#/volume] in Blood by Automated count 6290 cells/uL 15 00-7800 Absolute Neutrophils [place] ([facility]) Monocytes [#/volume] in Blood by Automated count 655 cells/uL 200-9 50 Absolute Monocytes [place] ([facility]) Lymphocytes [#/volume] in Blood by Automated count 1394 cells/uL 85 0-3900 Absolute Lymphocytes [facility] ([facility]) Eosinophils [#/volume] in Blood by Automated count 111 cells/uL 15- 500 Absolute Eosinophils [place] ([facility]) Basophils [#/volume] in Blood by Automated count 51 cells/uL 0-200 Absolute Basophils [place] ([facility]) Neutrophils/100 leukocytes in Blood by Automated count 74 % 38- 80 Neutrophils [place] ([facility]) Lymphocytes/100 leukocytes in Blood by Automated count 16.4 % 15-49 Lymphocytes [place] ([facility]) Eosinophils/100 leukocytes in Blood by Automated count 1.3 % 0-8 Eosinophils [place] ([facility]) Monocytes/100 leukocytes in Blood by Automated count 7.7 % 0-13 Monocytes [place] ([facility]) Basophils/100 leukocytes in Blood by Automated count 0.6 % 0-2 Basophils [place] ([facility]) ID Date Data Source [id number] 08/30/2020 10:12:00 AM EDT [place] ([facility]) Name Value Range Interpretation Code Description Data Dasha rce(s) Supporting Document(s) Glucose [Mass/volume] in Serum or Plasma 90 mg/dL 65-99 Glucose [place] ([facility]) Urea nitrogen [Mass/volume] in Serum or Plasma 18 mg/dL 7-25 Urea Nitrogen (BUN) [facility] ([facility]) Glomerular filtration rate/1.73 sq M.pre dicted among non-blacks [Volume Rate/Area] in Serum, Plasma or Blood by Creatinine-based formula (CKD-EPI) 101 mL/min/1.73m2 > or = 60 eGFR Non-afr. [place]uran [facility]URA ([facility]) Creatinine [Mass/volume] in Serum or Plasma 0.85 mg/dL 0.70-1.33 Creatinine [facility] ([facility]) Glomerular filtration rate/1.73 sq M.pre dicted among blacks [Volume Rate/Area] in Serum, Plasma or Blood by Creatinine-based formula (CKD-EPI) 117 mL/min/1.73m2 > or = 60 eGFR [place] ([facility]) Urea nitrogen/Creatinine [Mass Ratio] in Serum or Plasma not applic able 6-22 BUN/creatinine Ratio [place] ([facility]) Sodium [Moles/volume] in Serum or Plasma 140 mmol/L 135-146 [facility] Carbon dioxide, total [Moles/volume] in Serum or Plasma 26 mmol/L 20-32 Carbon Dioxide [place] ([facility]) Chloride [Moles/volume] in Serum or Plasma 101 mmol/L 98-110 Chloride [place] ([facility]) Potassium [Moles/volume] in Serum or Plasma 4.7 mmol/L 3.5-5.3 Potassium [place] ([facility]) Protein [Mass/volume] in Serum or Plasma 7.2 g/dL 6.1-8.1 Protein, Total [place] ([facility]) Calcium [Mass/volume] in Serum or Plasma 9.9 mg/dL 8.6-10.3 Calcium [place] ([facility]) Albumin [Mass/volume] in Serum or Plasma 4.7 g/dL 3.6-5.1 Albumin [place] ([facility]) Albumin/Globulin [Mass Ratio] in Serum or Plasma 1.9 (calc) 1.0-2 .5 Albumin/globulin Ratio [facility] ([facility]) Globulin [Mass/volume] in Serum by calculation 2.5 g/dL_(calc) 1.9- 3.7 Globulin [facility] ([facility]) Alkaline phosphatase [Enzymatic activity/volume] in Serum or Plasma 139 U/L 35-144 Alkaline Phosphatase [facility] ([facility]) Aspartate aminotransferase [Enzymatic activity/volume] in Serum or Plasma 19 U/L 10-35 Ast [place] ([facility]) Bilirubin.total [Mass/volume] in Serum or Plasma 0.4 mg/dL 0.2-1 .2 Bilirubin, Total [facility] ([facility]) Alanine aminotransferase [Enzymatic activity/volume] in Seru m or Plasma 14 U/L 9-46 Alt [place] ([facility]) ID Date Data Source [id number] 08/30/2020 10:12:00 AM EDT [facility]) Name Value Range Interpretation Code Description Data Dasha rce(s) Supporting Document(s) Cholesterol [Mass/volume] in Serum or Plasma 174 mg/dL <200 Cholesterol, Total [place] ([facility]) Triglyceride [Mass/volume] in Serum or Plasma 181 mg/dL <150 Above high normal Triglycerides [facility] ([facility]) Cholesterol in HDL [Mass/volume] in Serum or Plasma 33 mg/dL > or = 40 Below low normal HDL Cholesterol [facility] ([facility]) Cholesterol in LDL [Mass/volume] in Serum or Plasma by calculation 111 mg/dL_(calc) <100 Above high normal LDL-cholesterol [facility] ([facility]) Cholesterol.total/Cholesterol in HDL [Mass Ratio] in Serum o r Plasma 5.3 calc <5.0 Above high normal Chol/hdlc Ratio [facility] ([facility]) Cholesterol non HDL [Mass/volume] in Serum or Plasma 141 mg/dL_( calc) <130 Above high normal Non HDL Cholesterol [facility] ([facility]) ID Date Data Source [id number] 08/30/2020 10:12:00 AM EDT [facility]) Name Value Range Interpretation Code Description Data Dasha rce(s) Supporting Document(s) Hemoglobin A1c/Hemoglobin.total in Blood 5.0 %_of_total_HGB <5.7 Hemoglobin a1C [place] ([facility]) ID Date Data Source [id number] 08/30/2020 10:12:00 AM EDT [place] ([facility]) Name Value Range Interpretation Code Description Data Dasha rce(s) Supporting Document(s) Calcidiol [Mass/volume] in Serum or Plasma 43 NG/mL 30-100 Vitamin D,25-Oh,total,ia [place] ([facility]) ID Date Data Source [id number] 08/30/2020 10:12:00 AM EDT [place] ([facility]) Name Value Range Interpretation Code Description Data Dasha rce(s) Supporting Document(s) Leukocytes [#/volume] in Blood by Automated count 8.5 thousand/uL 3 .8-10.8 White Blood Cell Count [place] ([facility]) Hemoglobin [Mass/volume] in Blood 14.1 g/dL 13.2-17.1 He moglobin [place] ([facility]) Hematocrit [Volume Fraction] of Blood by Automated count 40.6 % 38.5-50.0 Hematocrit [place] ([facility]) Erythrocytes [#/volume] in Blood by Automated count 4.63 million/uL 4.20-5.80 Red Blood Cell Count [place] ([facility]) Erythrocyte mean corpuscular hemoglobin [Entitic mass] by Automated count 30.5 pg 27.0-33.0 Mch [place] ([facility]) Erythrocyte mean corpuscular volume [Entitic volume] by Auto mated count 87.7 fL 80.0-100.0 Mcv [place] ([facility]) Erythrocyte mean corpuscular hemoglobin concentration [Mass/volume] by Automated count 34.7 g/dL 32.0-36.0 Mchc [facility] ([facility]) Platelets [#/volume] in Blood by Automated count 369 thousand/uL 14 0-400 Platelet Count [place] ([facility]) Platelet mean volume [Entitic volume] in Blood by Dora 10.3 f L 7.5-12.5 Mpv [place] ([facility]) Erythrocyte distribution width [Ratio] by Automated count 14.3 % 11.0-15.0 Rdw [place] ([facility]) Monocytes [#/volume] in Blood by Automated count 655 cells/uL 200-9 50 Absolute Monocytes [place] ([facility]) Lymphocytes [#/volume] in Blood by Automated count 1394 cells/uL 85 0-3900 Absolute Lymphocytes [place] ([facility]) Neutrophils [#/volume] in Blood by Automated count 6290 cells/uL 15 00-7800 Absolute Neutrophils [place] ([facility]) Basophils [#/volume] in Blood by Automated count 51 cells/uL 0-200 Absolute Basophils [place] ([facility]) Neutrophils/100 leukocytes in Blood by Automated count 74 % 38- 80 Neutrophils [place] ([facility]) Eosinophils [#/volume] in Blood by Automated count 111 cells/uL 15- 500 Absolute Eosinophils [place] ([facility]) Lymphocytes/100 leukocytes in Blood by Automated count 16.4 % 15-49 Lymphocytes [facility] ([facility]) Eosinophils/100 leukocytes in Blood by Automated count 1.3 % 0-8 Eosinophils [place] ([facility]) Monocytes/100 leukocytes in Blood by Automated count 7.7 % 0-13 Monocytes [place] ([facility]) Basophils/100 leukocytes in Blood by Automated count 0.6 % 0-2 Basophils [place] ([facility]) ID Date Data Source [id number] 08/30/2020 10:12:00 AM EDT [place] ([facility]) Name Value Range Interpretation Code Description Data Dasha rce(s) Supporting Document(s) Creatinine [Mass/volume] in Serum or Plasma 0.85 mg/dL 0.70-1.33 Creatinine [place] ([facility]) Urea nitrogen [Mass/volume] in Serum or Plasma 18 mg/dL 7-25 Urea Nitrogen (BUN) [facility] ([facility]) Glucose [Mass/volume] in Serum or Plasma 90 mg/dL 65-99 Glucose [place] ([facility]) Urea nitrogen/Creatinine [Mass Ratio] in Serum or Plasma not applic able 6-22 BUN/creatinine Ratio [facility] ([facility]) Glomerular filtration rate/1.73 sq M.pre dicted among non-blacks [Volume Rate/Area] in Serum, Plasma or Blood by Creatinine-based formula (CKD-EPI) 101 mL/min/1.73m2 > or = 60 eGFR Non-afr. [place]uran [facility]URA ([facility]) Glomerular filtration rate/1.73 sq M.pre dicted among blacks [Volume Rate/Area] in Serum, Plasma or Blood by Creatinine-based formula (CKD-EPI) 117 mL/min/1.73m2 > or = 60 eGFR [place] ([facility]) Chloride [Moles/volume] in Serum or Plasma 101 mmol/L 98-110 Chloride [facility] ([facility]) Potassium [Moles/volume] in Serum or Plasma 4.7 mmol/L 3.5-5.3 Potassium [place] ([facility]) Sodium [Moles/volume] in Serum or Plasma 140 mmol/L 135-146 Sodium [place] ([facility]) Calcium [Mass/volume] in Serum or Plasma 9.9 mg/dL 8.6-10.3 Calcium [place] ([facility]) Carbon dioxide, total [Moles/volume] in Serum or Plasma 26 mmol/L 20-32 Carbon Dioxide [place] ([facility]) Protein [Mass/volume] in Serum or Plasma 7.2 g/dL 6.1-8.1 Protein, Total [facility]) Albumin [Mass/volume] in Serum or Plasma 4.7 g/dL 3.6-5.1 Albumin [place] ([facility]) Globulin [Mass/volume] in Serum by calculation 2.5 g/dL_(calc) 1.9- 3.7 Globulin [place] ([facility]) Albumin/Globulin [Mass Ratio] in Serum or Plasma 1.9 (calc) 1.0-2 .5 Albumin/globulin Ratio [place] ([facility]) Alkaline phosphatase [Enzymatic activity/volume] in Serum or Plasma 139 U/L 35-144 Alkaline Phosphatase [place] ([facility]) Bilirubin.total [Mass/volume] in Serum or Plasma 0.4 mg/dL 0.2-1 .2 Bilirubin, Total [place] ([facility]) Alanine aminotransferase [Enzymatic activity/volume] in Seru m or Plasma 14 U/L 9-46 Alt [place] ([facility]) Aspartate aminotransferase [Enzymatic activity/volume] in Serum or Plasma 19 U/L 10-35 Ast [place] ([facility]) ID Date Data Source [id number] 08/30/2020 10:12:00 AM EDT [place] ([facility]) Name Value Range Interpretation Code Description Data Dasha rce(s) Supporting Document(s) Cholesterol [Mass/volume] in Serum or Plasma 174 mg/dL <200 Cholesterol, Total [place] ([facility]) Cholesterol in HDL [Mass/volume] in Serum or Plasma 33 mg/dL > or = 40 Below low normal HDL Cholesterol [place] ([facility]) Triglyceride [Mass/volume] in Serum or Plasma 181 mg/dL <150 Above high normal Triglycerides [facility] ([facility]) Cholesterol in LDL [Mass/volume] in Serum or Plasma by calculation 111 mg/dL_(calc) <100 Above high normal LDL-cholesterol [place] ([facility]) Cholesterol non HDL [Mass/volume] in Serum or Plasma 141 mg/dL_( calc) <130 Above high normal Non HDL Cholesterol [place] ([facility]) Cholesterol.total/Cholesterol in HDL [Mass Ratio] in Serum o r Plasma 5.3 calc <5.0 Above high normal Chol/hdlc Ratio [facility] ([facility]) ID Date Data Source [id number] 08/30/2020 10:12:00 AM EDT [place] ([facility]) Name Value Range Interpretation Code Description Data Dasha rce(s) Supporting Document(s) Hemoglobin A1c/Hemoglobin.total in Blood 5.0 %_of_total_HGB <5.7 Hemoglobin a1C [place] ([facility]) ID Date Data Source [id number] 08/30/2020 10:12:00 AM EDT [facility]) Name Value Range Interpretation Code Description Data Dasha rce(s) Supporting Document(s) Calcidiol [Mass/volume] in Serum or Plasma 43 NG/mL 30-100 Vitamin D,25-Oh,total,ia [place] ([facility]) ID Date Data Source [id number] 08/30/2020 10:12:00 AM EDT [place] ([facility]) Name Value Range Interpretation Code Description Data Dasha rce(s) Supporting Document(s) Leukocytes [#/volume] in Blood by Automated count 8.5 thousand/uL 3 .8-10.8 White Blood Cell Count [place] ([facility]) Erythrocytes [#/volume] in Blood by Automated count 4.63 million/uL 4.20-5.80 Red Blood Cell Count [place] ([facility]) Hemoglobin [Mass/volume] in Blood 14.1 g/dL 13.2-17.1 He moglobin [place] ([facility]) Hematocrit [Volume Fraction] of Blood by Automated count 40.6 % 38.5-50.0 Hematocrit [place] ([facility]) Erythrocyte mean corpuscular volume [Entitic volume] by Auto mated count 87.7 fL 80.0-100.0 Mcv [place] ([facility]) Erythrocyte mean corpuscular hemoglobin [Entitic mass] by Automated count 30.5 pg 27.0-33.0 Mch [place] ([facility]) Erythrocyte mean corpuscular hemoglobin concentration [Mass/volume] by Automated count 34.7 g/dL 32.0-36.0 Mchc [place] ([facility]) Erythrocyte distribution width [Ratio] by Automated count 14.3 % 11.0-15.0 Rdw [place] ([facility]) Platelet mean volume [Entitic volume] in Blood by Dora 10.3 f L 7.5-12.5 Mpv [place] ([facility]) Platelets [#/volume] in Blood by Automated count 369 thousand/uL 14 0-400 Platelet Count [place] ([facility]) Neutrophils [#/volume] in Blood by Automated count 6290 cells/uL 15 00-7800 Absolute Neutrophils [place] ([facility]) Lymphocytes [#/volume] in Blood by Automated count 1394 cells/uL 85 0-3900 Absolute Lymphocytes [place] ([facility]) Eosinophils [#/volume] in Blood by Automated count 111 cells/uL 15- 500 Absolute Eosinophils [place] ([facility]) Monocytes [#/volume] in Blood by Automated count 655 cells/uL 200-9 50 Absolute Monocytes [place] ([facility]) Basophils [#/volume] in Blood by Automated count 51 cells/uL 0-200 Absolute Basophils [place] ([facility]) Neutrophils/100 leukocytes in Blood by Automated count 74 % 38- 80 Neutrophils [place] ([facility]) Lymphocytes/100 leukocytes in Blood by Automated count 16.4 % 15-49 Lymphocytes [place] ([facility]) Monocytes/100 leukocytes in Blood by Automated count 7.7 % 0-13 Monocytes [place] ([facility]) Eosinophils/100 leukocytes in Blood by Automated count 1.3 % 0-8 Eosinophils [place] ([facility]) Basophils/100 leukocytes in Blood by Automated count 0.6 % 0-2 Basophils [place] ([facility]) ID Date Data Source [id number] 08/30/2020 10:12:00 AM EDT [facility]) Name Value Range Interpretation Code Description Data Dasha rce(s) Supporting Document(s) Glucose [Mass/volume] in Serum or Plasma 90 mg/dL 65-99 Glucose [place] ([facility]) Urea nitrogen [Mass/volume] in Serum or Plasma 18 mg/dL 7-25 [facility] N[facility] ([facility]UN) [facility] Creatinine [Mass/volume] in Serum or Plasma 0.85 mg/dL 0.70-1.33 Creatinine [place] ([facility]) Glomerular filtration rate/1.73 sq M.pre dicted among non-blacks [Volume Rate/Area] in Serum, Plasma or Blood by Creatinine-based formula (CKD-EPI) 101 mL/min/1.73m2 > or = 60 eGFR Non-afr. [place]uran [place] ([facility]) Urea nitrogen/Creatinine [Mass Ratio] in Serum or Plasma not applic able 6 BUN[facility]inine [facility] Glomerular filtration rate/1.73 sq M.pre dicted among blacks [Volume Rate/Area] in Serum, Plasma or Blood by Creatinine-based formula (CKD-EPI) 117 mL/min/1.73m2 > or = 60 eGFR [place] ([facility]) Sodium [Moles/volume] in Serum or Plasma 140 mmol/L 135-146 Sodium [place] ([facility]) Potassium [Moles/volume] in Serum or Plasma 4.7 mmol/L 3.5-5.3 Potassium [place] ([facility]) Chloride [Moles/volume] in Serum or Plasma 101 mmol/L 98-110 Chloride [place] ([facility]) Carbon dioxide, total [Moles/volume] in Serum or Plasma 26 mmol/L 20-32 Carbon Dioxide [place] ([facility]) Calcium [Mass/volume] in Serum or Plasma 9.9 mg/dL 8.6-10.3 Calcium [place] ([facility]) Protein [Mass/volume] in Serum or Plasma 7.2 g/dL 6.1-8.1 Protein, Total [place] ([facility]) Albumin [Mass/volume] in Serum or Plasma 4.7 g/dL 3.6-5.1 Albumin [place] ([facility]) Globulin [Mass/volume] in Serum by calculation 2.5 g/dL_(calc) 1.9- 3.7 Globulin [place] ([facility]) Albumin/Globulin [Mass Ratio] in Serum or Plasma 1.9 (calc) 1.0-2 .5 Albumin/globulin Ratio [place] ([facility]) Bilirubin.total [Mass/volume] in Serum or Plasma 0.4 mg/dL 0.2-1 .2 Bilirubin, Total [place] ([facility]) Alkaline phosphatase [Enzymatic activity/volume] in Serum or Plasma 139 U/L 35-144 Alkaline Phosphatase [place] ([facility]) Aspartate aminotransferase [Enzymatic activity/volume] in Serum or Plasma 19 U/L 10-35 Ast [place] ([facility]) Alanine aminotransferase [Enzymatic activity/volume] in Seru m or Plasma 14 U/L 9-46 Alt [place] ([facility]) ID Date Data Source [id number] 08/30/2020 10:12:00 AM [facility] Name Value Range Interpretation Code Description Data Dasha rce(s) Supporting Document(s) Cholesterol [Mass/volume] in Serum or Plasma 174 mg/dL <200 Cholesterol, Total [place] ([facility]) Cholesterol in HDL [Mass/volume] in Serum or Plasma 33 mg/dL > or = 40 Below low normal HDL Cholesterol [place] ([facility]) Triglyceride [Mass/volume] in Serum or Plasma 181 mg/dL <150 Above high normal Triglycerides [place] ([facility]) Cholesterol.total/Cholesterol in HDL [Mass Ratio] in Serum o r Plasma 5.3 calc <5.0 Above high normal Chol/hdlc Ratio [facility] ([facility]) Cholesterol in LDL [Mass/volume] in Serum or Plasma by calculation 111 mg/dL_(calc) <100 Above high normal LDL-cholesterol [place] ([facility]) Cholesterol non HDL [Mass/volume] in Serum or Plasma 141 mg/dL_( calc) <130 Above high normal Non HDL Cholesterol [facility] ([facility]) ID Date Data Source [id number] 08/30/2020 10:12:00 AM EDT [place] ([facility]) Name Value Range Interpretation Code Description Data Dasha rce(s) Supporting Document(s) Hemoglobin A1c/Hemoglobin.total in Blood 5.0 %_of_total_HGB <5.7 Hemoglobin a1C [place] ([facility]) ID Date Data Source [id number] 08/30/2020 10:12:00 AM [facility] Name Value Range Interpretation Code Description Data Dasha rce(s) Supporting Document(s) Calcidiol [Mass/volume] in Serum or Plasma 43 NG/mL 30-100 Vitamin D,25-Oh,total,ia LAURA ([facility]) ID Date Data Source [id number] 08/30/2020 10:12:00 AM EDT LAURA ([facility]) Name Value Range Interpretation Code Description Data Dasha rce(s) Supporting Document(s) Erythrocytes [#/volume] in Blood by Automated count 4.63 million/uL 4.20-5.80 Red Blood Cell Count LAURA ([facility]) Leukocytes [#/volume] in Blood by Automated count 8.5 thousand/uL 3 .8-10.8 White Blood Cell Count LAURA ([facility]) Hemoglobin [Mass/volume] in Blood 14.1 g/dL 13.2-17.1 He moglobin LAURA ([facility]) Hematocrit [Volume Fraction] of Blood by Automated count 40.6 % 38.5-50.0 Hematocrit [place] ([facility]) Erythrocyte mean corpuscular hemoglobin [Entitic mass] by Automated count 30.5 pg 27.0-33.0 Mch LAURA ([facility]) Erythrocyte mean corpuscular hemoglobin concentration [Mass/volume] by Automated count 34.7 g/dL 32.0-36.0 Mchc LAURA ([facility]) Erythrocyte mean corpuscular volume [Entitic volume] by Auto mated count 87.7 fL 80.0-100.0 Mcv LAURA ([facility]) Erythrocyte distribution width [Ratio] by Automated count 14.3 % 11.0-15.0 Rdw LAURA ([facility]) Platelets [#/volume] in Blood by Automated count 369 thousand/uL 14 0-400 Platelet Count LUARA ([facility]) Neutrophils [#/volume] in Blood by Automated count 6290 cells/uL 15 00-7800 Absolute Neutrophils LAURA ([facility]) Lymphocytes [#/volume] in Blood by Automated count 1394 cells/uL 85 0-3900 Absolute Lymphocytes LAURA ([facility]) Platelet mean volume [Entitic volume] in Blood by Dora 10.3 f L 7.5-12.5 Mpv LAURA ([facility]) Monocytes [#/volume] in Blood by Automated count 655 cells/uL 200-9 50 Absolute Monocytes LAURA ([facility]) Basophils [#/volume] in Blood by Automated count 51 cells/uL 0-200 Absolute Basophils LAURA ([facility]) Eosinophils [#/volume] in Blood by Automated count 111 cells/uL 15- 500 Absolute Eosinophils LAURA ([facility]) Lymphocytes/100 leukocytes in Blood by Automated count 16.4 % 15-49 Lymphocytes LAURA ([facility]) Neutrophils/100 leukocytes in Blood by Automated count 74 % 38- 80 Neutrophils LAURA ([facility]) Monocytes/100 leukocytes in Blood by Automated count 7.7 % 0-13 Monocytes LAURA ([facility]) Basophils/100 leukocytes in Blood by Automated count 0.6 % 0-2 Basophils LAURA ([facility]) Eosinophils/100 leukocytes in Blood by Automated count 1.3 % 0-8 Eosinophils LAURA ([facility]) ID Date Data Source [id number] 07/19/2020 11:14:00 AM EDT MEDENT ([facility]) Name Value Range Interpretation Code Description Data Dasha rce(s) Supporting Document(s) Erythrocyte sedimentation rate by Westergren method 30 mm/hr 0-20 [facility] ([facility]) C reactive protein [Mass/volume] in Serum or Plasma by High sensitivity method 0.94 mg/dL 0.00-0.30 [facility] ID Date Data Source [id number] 07/19/2020 11:14:00 AM EDT MEDENT ([facility]) Name Value Range Interpretation Code Description Data Dasha rce(s) Supporting Document(s) White Blood Count 5.4 10 4.0-10.0 MEDENT ([facility]) Red Blood Count 4.17 10 4.30-6.10 MEDENT ([facility]) Hemoglobin 12.1 g/dL 13.5-17.5 MEDENT ([facility]) Mean Corpuscular Volume 89.2 fl 80.0-96.0 M EDENT ([facility]) Hematocrit 37.2 % 42.0-52.0 MEDENT ([facility]) Mean Corpuscular HGB Conc 32.5 g/dL 32.0-36.5 MEDENT ([facility]) Mean Corpuscular Hemoglobin 29.0 pg 27.0-33.0 MEDENT ([facility]) Red Cell Distribution Width 13.0 % 11.5-14.5 MEDENT ([facility]) Nucleated Red Blood Cell % 0.0 % 0-0 MED [facility] ([facility]) Platelet Count, Automated 307 10 150-450 MEDENT ([facility]) ID Date Data Source [id number] 04/09/2020 12:57:00 PM EST LAURA ([facility]) Name Value Range Interpretation Code Description Data Dasha rce(s) Supporting Document(s) RSV amplification negative negative RSV Amplification [place] ([facility]) influenza A amplification negative negative Influenza a Amplification [place] ([facility]) influenza B amplification negative negative Influenza B Amplification [facility]) sars covid-19 amplification negative negative Sars Cov id-19 Amplification [facility]) ID Date Data Source [id number] 04/09/2020 12:57:00 PM EST LAURA ([facility]) Name Value Range Interpretation Code Description Data Dasha rce(s) Supporting Document(s) influenza A amplification negative negative Influenza a Amplification [place] ([facility]) influenza B amplification negative negative Influenza B Amplification [place] ([facility]) sars covid-19 amplification negative negative Sars Cov id-19 Amplification [place] ([facility]) RSV amplification negative negative RSV Amplification [facility]) ID Date Data Source [id number] 04/09/2020 12:57:00 PM EST [place] ([facility]) Name Value Range Interpretation Code Description Data Dasha rce(s) Supporting Document(s) influenza A amplification negative negative Influenza a Amplification LAURA ([facility]) influenza B amplification negative negative Influenza B Amplification [facility]) sars covid-19 amplification negative negative Sars Cov id-[facility] RSV amplification negative negative RSV Amplification [facility]) ID Date Data Source [id number] 04/09/2020 12:57:00 PM EST [place] ([facility]) Name Value Range Interpretation Code Description Data Dasha rce(s) Supporting Document(s) influenza A amplification negative negative Influenza a Amplification LAURA ([facility]) RSV amplification negative negative RSV Amplification LAURA ([facility]) influenza B amplification negative negative Influenza B Amplification LAURA ([facility]) sars covid-19 amplification negative negative Sars Cov id-19 [facility] ID Date Data Source [id number] 04/09/2020 12:57:00 PM [facility] Name Value Range Interpretation Code Description Data Dasha rce(s) Supporting Document(s) influenza A amplification negative negative Influenza a Amplification [facility]) influenza B amplification negative negative Influenza B Amplification [facility]) sars covid-19 amplification negative negative Sars Cov id-19 Amplification LAURA ([facility]) RSV amplification negative negative RSV Amplification [facility]) ID Date Data Source [id number] 04/09/2020 12:57:00 PM EST [facility] Name Value Range Interpretation Code Description Data Dasha rce(s) Supporting Document(s) SARS coronavirus 2 RNA [Presence] in Res piratory specimen by [facility] with probe detection [facility] This lab was ordered by [facility] a nd reported by [facility]. ID Date Data Source [id number] 04/09/2020 12:57:00 PM EST [place] ([facility]) Name Value Range Interpretation Code Description Data Dasha rce(s) Supporting Document(s) influenza A amplification negative negative Influenza a Amplification LAURA ([facility]) influenza B amplification negative negative Influenza [facility] RSV amplification negative negative RSV Amplification [place] ([facility]) sars covid-19 amplification negative negative Sars Cov id-19 Amplification [facility]) ID Date Data Source [id number] 04/09/2020 12:57:00 PM EST [place] ([facility]) Name Value Range Interpretation Code Description Data Dasha rce(s) Supporting Document(s) influenza A amplification negative negative Influenza a Amplification LAURA ([facility]) influenza B amplification negative negative Influenza B Amplification LAURA ([facility]) RSV amplification negative negative RSV Amplification LAURA ([facility]) sars covid-19 amplification negative negative Sars Cov id-19 Amplification LAURA ([facility]) ID Date Data Source [id number] 03/04/2020 10:00:00 AM EST [place] ([facility]) Name Value Range Interpretation Code Description Data Dasha rce(s) Supporting Document(s) estimated average glucose 103 mg/dL 60-110 Estimated Average Glucose [facility]) Hemoglobin A1c/Hemoglobin.total in Blood 5.2 % Hemoglobin a1C [facility]) ID Date Data Source [id number] 03/04/2020 10:00:00 AM EST [facility]) Name Value Range Interpretation Code Description Data Dasha rce(s) Supporting Document(s) total 25(oh) vitamin D 53.1 NG/mL 30.0-100.0 Total 25(Oh) Vitamin D [facility]) ID Date Data Source [id number] 03/04/2020 10:00:00 AM EST [place] ([facility]) Name Value Range Interpretation Code Description Data Dasha rce(s) Supporting Document(s) PSA screening 1.17 NG/mL < 4.00 [facility] Date Data Source [id number] 03/04/2020 10:00:00 AM EST [facility]) Name Value Range Interpretation Code Description Data Dasha rce(s) Supporting Document(s) cholesterol level 196 mg/dL <200 Cholesterol Level [facility]) triglycerides level 129 mg/dL <150 Triglycerides [place] LAURA ([facility]) Cholesterol in LDL [Mass/volume] in Serum or Plasma 135 mg/dL <100 Above high normal LDL Cholesterol LAURA ([facility]) HDL cholesterol 35 mg/dL >40 Below low normal HDL Cholestero l LAURA ([facility]) cholesterol risk ratio <5 Above high normal Choles terol Risk Ratio LAURA ([facility]) non-HDL-C 161 mg/dL Non-hdl-c LAURA ([facility]) ID Date Data Source [id number] 03/04/2020 10:00:00 AM EST LAURA ([facility]) Name Value Range Interpretation Code Description Data Dasha rce(s) Supporting Document(s) creatinine for GFR 0.96 mg/dL 0.70-1.30 Creatinine for GF R LAURA ([facility]) blood urea nitrogen 17 mg/dL 7-18 Blood Urea Nitro gen LAURA ([facility]) glucose, fasting 87 mg/dL 70-100 Glucose, Fasting AT [facility]) glomerular filtration rate > 60.0 >56 Glomerula r Filtration Rate LAURA ([facility]) sodium level 139 mEq/L 136-145 Sodium Level LAURA ([facility]) potassium serum 4.6 mEq/L 3.5-5.1 Potassium Serum ATHE ([facility]) chloride level 105 mEq/L 98-107 Chloride Level [place] ([facility]) calcium level 9.6 mg/dL 8.5-10.1 Calcium Level LAURA ( [facility]) anion gap 5 mEq/L 8-16 Below low normal Anion Gap LAURA ( [facility]) carbon dioxide level 29 mEq/L 21-32 Carbon Dioxide Level LAURA ([facility]) ALT/SGPT 21 U/L 12-78 ALT/SGPT LAURA ([facility]) bilirubin,total 0.4 mg/dL 0.2-1.0 Bilirubin,total ATHE ([facility]) alkaline phosphatase 74 U/L 45-117 Alkaline Phosph atase LAURA ([facility]) AST/SGOT 15 U/L 7-37 AST/SGOT LAURA ([facility]) total protein 7.4 gm/dL 6.4-8.2 Total Protein LAURA ( [facility]) albumin/globulin ratio Albumin/globu marcus Ratio LAURA ([facility]) albumin 4.3 gm/dL 3.2-5.2 Albumin LAURA ([facility]) ID Date Data Source [id number] 03/04/2020 10:00:00 AM EST LAURA ([facility]) Name Value Range Interpretation Code Description Data Dasha rce(s) Supporting Document(s) white blood count 6.4 10 4.0-10.0 White Blood Count LAURA ([facility]) red blood count 4.75 10 4.30-6.10 Red Blood Count ATHE ([facility]) hematocrit 42.9 % 42.0-52.0 Hematocrit LAURA ([facility]) hemoglobin 14.5 g/dL 13.5-17.5 Hemoglobin LAURA ([facility]) mean corpuscular volume 90.3 fL 80.0-96.0 Mean Corpusc ular Volume LAURA ([facility]) mean corpuscular HGB conc 33.8 g/dL 32.0-36.5 Mean Corpu scular HGB Conc LAURA ([facility]) red cell distribution width 12.1 % 11.5-14.5 Red Cell Distribution Width LAURA ([facility]) mean corpuscular hemoglobin 30.5 pg 27.0-33.0 Mean Cor puscular Hemoglobin LAURA ([facility]) neutrophils % 66.7 % 36.0-66.0 Above high normal Neutrophils % A THENA ([facility]) lymph % 21.5 % 24.0-44.0 Below low normal Lymph % LAURA ( [facility]) platelet count, automated 326 10 150-450 Platelet C ount, Automated LAURA ([facility]) eos % 1.7 % 0.0-3.0 Eos % LAURA ([facility]) mono % 8.5 % 0.0-5.0 Above high normal [place] % LAURA ([facility]) baso % 1.1 % 0.0-1.0 Above high normal Baso % LAURA ([facility]) neutrophils # 4.3 10 1.5-8.5 Neutrophils # LAURA ( [facility]) nucleated red blood cell % 0.0 % 0-0 Nucleated Red Blood Cell % ALURA ([facility]) immature granulocyte % 0.5 % 0-3.0 Immature Gran ulocyte % LAURA ([facility]) lymph # 1.4 10 1.5-5.0 Below low normal Lymph # LAURA ( [facility]) mono # 0.5 10 0.0-0.8 [place] # LAURA ([facility]) baso # 0.1 10 0.0-0.2 Baso # LAURA ([facility]) eos # 0.1 10 0.0-0.5 Eos # LAURA ([facility]) ID Date Data Source [id number] 03/04/2020 10:00:00 AM EST LAURA ([facility]) Name Value Range Interpretation Code Description Data Dasha rce(s) Supporting Document(s) estimated average glucose 103 mg/dL 60-110 Estimated Average Glucose [place] ([facility]) Hemoglobin A1c/Hemoglobin.total in Blood 5.2 % Hemoglobin a1C [place] ([facility]) ID Date Data Source [id number] 03/04/2020 10:00:00 AM EST LAURA ([facility]) Name Value Range Interpretation Code Description Data Dasha rce(s) Supporting Document(s) total 25(oh) vitamin D 53.1 NG/mL 30.0-100.0 Total 25(Oh) Vitamin D [place] ([facility]) ID Date Data Source [id number] 03/04/2020 10:00:00 AM EST LAURA ([facility]) Name Value Range Interpretation Code Description Data Dasha rce(s) Supporting Document(s) PSA screening 1.17 NG/mL < 4.00 PSA Screening LAURA ( [facility]) ID Date Data Source [id number] 03/04/2020 10:00:00 AM EST LAURA ([facility]) Name Value Range Interpretation Code Description Data Dasha rce(s) Supporting Document(s) triglycerides level 129 mg/dL <150 Triglycerides [place] LAURA ([facility]) cholesterol level 196 mg/dL <200 Cholesterol Level LAURA ([facility]) non-HDL-C 161 mg/dL Non-hdl-c LAURA ([facility]) HDL cholesterol 35 mg/dL >40 Below low normal HDL Cholestero l LAURA ([facility]) cholesterol risk ratio <5 Above high normal Choles terol Risk Ratio LAURA ([facility]) Cholesterol in LDL [Mass/volume] in Serum or Plasma 135 mg/dL <100 Above high normal LDL Cholesterol LAURA ([facility]) ID Date Data Source [id number] 03/04/2020 10:00:00 AM EST LAURA ([facility]) Name Value Range Interpretation Code Description Data Dasha rce(s) Supporting Document(s) glucose, fasting 87 mg/dL 70-100 Glucose, Fasting AT [facility]) glomerular filtration rate > 60.0 >56 Glomerula r Filtration Rate LAURA ([facility]) blood urea nitrogen 17 mg/dL 7-18 Blood Urea Nitro gen LAURA ([facility]) creatinine for GFR 0.96 mg/dL 0.70-1.30 Creatinine for GF R LAURA ([facility]) sodium level 139 mEq/L 136-145 Sodium Level LAURA ([facility]) anion gap 5 mEq/L 8-16 Below low normal Anion Gap LAURA ( [facility]) carbon dioxide level 29 mEq/L 21-32 Carbon Dioxide Level [place] ([facility]) chloride level 105 mEq/L 98-107 Chloride Level [place] ([facility]) potassium serum 4.6 mEq/L 3.5-5.1 Potassium Serum ATHE NA ([facility]) ALT/SGPT 21 U/L 12-78 ALT/SGPT LAURA ([facility]) calcium level 9.6 mg/dL 8.5-10.1 Calcium Level LAURA ( [facility]) alkaline phosphatase 74 U/L 45-117 Alkaline Phosph atase LAURA ([facility]) AST/SGOT 15 U/L 7-37 AST/SGOT LAURA ([facility]) albumin 4.3 gm/dL 3.2-5.2 Albumin LAURA ([facility]) bilirubin,total 0.4 mg/dL 0.2-1.0 Bilirubin,total ATHE ([facility]) albumin/globulin ratio Albumin/globu marcus Ratio LAURA ([facility]) total protein 7.4 gm/dL 6.4-8.2 Total Protein LAURA ( [facility]) ID Date Data Source [id number] 03/04/2020 10:00:00 AM EST LAURA ([facility]) Name Value Range Interpretation Code Description Data Dasha rce(s) Supporting Document(s) white blood count 6.4 10 4.0-10.0 White Blood Count LAURA ([facility]) hematocrit 42.9 % 42.0-52.0 Hematocrit LAURA ([facility]) hemoglobin 14.5 g/dL 13.5-17.5 Hemoglobin LAURA ([facility]) red blood count 4.75 10 4.30-6.10 Red Blood Count ATHE NA ([facility]) mean corpuscular HGB conc 33.8 g/dL 32.0-36.5 Mean Corpu scular HGB Conc LAURA ([facility]) mean corpuscular volume 90.3 fL 80.0-96.0 Mean Corpusc ular Volume LAURA ([facility]) mean corpuscular hemoglobin 30.5 pg 27.0-33.0 Mean Cor puscular Hemoglobin LAURA ([facility]) red cell distribution width 12.1 % 11.5-14.5 Red Cell Distribution Width LAURA ([facility]) platelet count, automated 326 10 150-450 Platelet C ount, Automated LAURA ([facility]) neutrophils % 66.7 % 36.0-66.0 Above high normal Neutrophils % A THENA ([facility]) lymph % 21.5 % 24.0-44.0 Below low normal Lymph % LAURA ( [facility]) baso % 1.1 % 0.0-1.0 Above high normal Baso % LAURA ([facility]) immature granulocyte % 0.5 % 0-3.0 Immature Gran ulocyte % LAURA ([facility]) eos % 1.7 % 0.0-3.0 Eos % LAURA ([facility]) mono % 8.5 % 0.0-5.0 Above high normal [place] % LAURA ([facility]) neutrophils # 4.3 10 1.5-8.5 Neutrophils # LAURA ( [facility]) lymph # 1.4 10 1.5-5.0 Below low normal Lymph # LAURA ( [facility]) nucleated red blood cell % 0.0 % 0-0 Nucleated Red Blood Cell % LAURA ([facility]) mono # 0.5 10 0.0-0.8 [place] # LAURA ([facility]) baso # 0.1 10 0.0-0.2 Baso # LAURA ([facility]) eos # 0.1 10 0.0-0.5 Eos # LAURA ([facility]) ID Date Data Source [id number] 03/04/2020 10:00:00 AM EST LAURA ([facility]) Name Value Range Interpretation Code Description Data Dasha rce(s) Supporting Document(s) Hemoglobin A1c/Hemoglobin.total in Blood 5.2 % Hemoglobin a1C LAURA ([facility]) estimated average glucose 103 mg/dL 60-110 Estimated Average Glucose LAURA ([facility]) ID Date Data Source [id number] 03/04/2020 10:00:00 AM EST LAURA ([facility]) Name Value Range Interpretation Code Description Data Dasha rce(s) Supporting Document(s) total 25(oh) vitamin D 53.1 NG/mL 30.0-100.0 Total 25(Oh) Vitamin D LAURA ([facility]) ID Date Data Source [id number] 03/04/2020 10:00:00 AM EST LAURA ([facility]) Name Value Range Interpretation Code Description Data Dasha rce(s) Supporting Document(s) PSA screening 1.17 NG/mL < 4.00 PSA Screening LAURA ( [facility]) ID Date Data Source [id number] 03/04/2020 10:00:00 AM EST LAURA ([facility]) Name Value Range Interpretation Code Description Data Dasha rce(s) Supporting Document(s) triglycerides level 129 mg/dL <150 Triglycerides [place] LAURA ([facility]) HDL cholesterol 35 mg/dL >40 Below low normal HDL Cholestero l LAURA ([facility]) cholesterol level 196 mg/dL <200 Cholesterol Level LAURA ([facility]) Cholesterol in LDL [Mass/volume] in Serum or Plasma 135 mg/dL <100 Above high normal LDL Cholesterol LAURA ([facility]) non-HDL-C 161 mg/dL Non-hdl-c LAURA ([facility]) cholesterol risk ratio <5 Above high normal Choles terol Risk Ratio LAURA ([facility]) ID Date Data Source [id number] 03/04/2020 10:00:00 AM EST LAURA ([facility]) Name Value Range Interpretation Code Description Data Dasha rce(s) Supporting Document(s) blood urea nitrogen 17 mg/dL 7-18 Blood Urea Nitro gen LAURA ([facility]) glucose, fasting 87 mg/dL 70-100 Glucose, Fasting AT [place] ([facility]) glomerular filtration rate > 60.0 >56 Glomerula r Filtration Rate LAURA ([facility]) sodium level 139 mEq/L 136-145 Sodium Level LAURA ([facility]) creatinine for GFR 0.96 mg/dL 0.70-1.30 Creatinine for GF R LAURA ([facility]) anion gap 5 mEq/L 8-16 Below low normal Anion Gap LAURA ( [facility]) carbon dioxide level 29 mEq/L 21-32 Carbon Dioxide Level LAURA ([facility]) chloride level 105 mEq/L 98-107 Chloride Level LAURA ([facility]) potassium serum 4.6 mEq/L 3.5-5.1 Potassium Serum ATHE NA ([facility]) calcium level 9.6 mg/dL 8.5-10.1 Calcium Level LAURA ( [facility]) ALT/SGPT 21 U/L 12-78 ALT/SGPT LAURA ([facility]) AST/SGOT 15 U/L 7-37 AST/SGOT LAURA ([facility]) total protein 7.4 gm/dL 6.4-8.2 Total Protein LAURA ( [facility]) bilirubin,total 0.4 mg/dL 0.2-1.0 Bilirubin,total ATHE ([facility]) albumin 4.3 gm/dL 3.2-5.2 Albumin LAURA ([facility]) alkaline phosphatase 74 U/L 45-117 Alkaline Phosph atase LAURA ([facility]) albumin/globulin ratio Albumin/globu marcus Ratio LAURA ([facility]) ID Date Data Source [id number] 03/04/2020 10:00:00 AM EST LAURA ([facility]) Name Value Range Interpretation Code Description Data Dasha rce(s) Supporting Document(s) white blood count 6.4 10 4.0-10.0 White Blood Count LAURA ([facility]) hematocrit 42.9 % 42.0-52.0 Hematocrit LAURA ([facility]) hemoglobin 14.5 g/dL 13.5-17.5 Hemoglobin LAURA ([facility]) red blood count 4.75 10 4.30-6.10 Red Blood Count ATHE NA ([facility]) mean corpuscular hemoglobin 30.5 pg 27.0-33.0 Mean Cor puscular Hemoglobin LAURA ([facility]) mean corpuscular volume 90.3 fL 80.0-96.0 Mean Corpusc ular Volume LAURA ([facility]) mean corpuscular HGB conc 33.8 g/dL 32.0-36.5 Mean Corpu scular HGB Conc [facility] ([facility] [facility] red cell distribution width 12.1 % 11.5-14.5 Red Cell Distribution Width LAURA ([facility]) neutrophils % 66.7 % 36.0-66.0 Above high normal Neutrophils % A THENA ([facility]) platelet count, automated 326 10 150-450 Platelet C ount, Automated LAURA ([facility]) lymph % 21.5 % 24.0-44.0 Below low normal Lymph % LAURA ( [facility]) eos % 1.7 % 0.0-3.0 Eos % LAURA ([facility]) mono % 8.5 % 0.0-5.0 Above high normal [place] % LAURA ([facility]) immature granulocyte % 0.5 % 0-3.0 Immature Gran ulocyte % LAURA ([facility]) nucleated red blood cell % 0.0 % 0-0 Nucleated Red Blood Cell % LAURA ([facility]) baso % 1.1 % 0.0-1.0 Above high normal Baso % LAURA ([facility]) eos # 0.1 10 0.0-0.5 Eos # LAURA ([facility]) mono # 0.5 10 0.0-0.8 [place] # LAURA ([facility]) lymph # 1.4 10 1.5-5.0 Below low normal Lymph # LAURA ( [facility]) neutrophils # 4.3 10 1.5-8.5 Neutrophils # [place] ( [facility]) baso # 0.1 10 0.0-0.2 Baso # LAURA ([facility]) ID Date Data Source [id number] 03/04/2020 10:00:00 AM EST LAURA ([facility]) Name Value Range Interpretation Code Description Data Dasha rce(s) Supporting Document(s) estimated average glucose 103 mg/dL 60-110 Estimated Average Glucose LAURA ([facility]) Hemoglobin A1c/Hemoglobin.total in Blood 5.2 % Hemoglobin a1C [facility] ([facility]) ID Date Data Source [id number] 03/04/2020 10:00:00 AM EST LAURA ([facility]) Name Value Range Interpretation Code Description Data Dasha rce(s) Supporting Document(s) total 25(oh) vitamin D 53.1 NG/mL 30.0-100.0 Total 25(Oh) Vitamin D LAURA ([facility]) ID Date Data Source [id number] 03/04/2020 10:00:00 AM EST LAURA ([facility]) Name Value Range Interpretation Code Description Data Dasha rce(s) Supporting Document(s) PSA screening 1.17 NG/mL < 4.00 PSA Screening LAURA ( [facility]) ID Date Data Source [id number] 03/04/2020 10:00:00 AM EST LAURA ([facility]) Name Value Range Interpretation Code Description Data Dasha rce(s) Supporting Document(s) cholesterol level 196 mg/dL <200 Cholesterol Level LAURA ([facility]) triglycerides level 129 mg/dL <150 Triglycerides [place] har[place] LAURA ([facility]) Cholesterol in LDL [Mass/volume] in Serum or Plasma 135 mg/dL <100 Above high normal LDL Cholesterol LAURA ([facility]) HDL cholesterol 35 mg/dL >40 Below low normal HDL Cholestero l LAURA ([facility]) non-HDL-C 161 mg/dL Non-hdl-c LAURA ([facility]) cholesterol risk ratio <5 Above high normal Choles terol Risk Ratio LAURA ([facility]) ID Date Data Source [id number] 03/04/2020 10:00:00 AM EST LAURA ([facility]) Name Value Range Interpretation Code Description Data Dasha rce(s) Supporting Document(s) glucose, fasting 87 mg/dL 70-100 Glucose, Fasting AT [facility] ([facility]) blood urea nitrogen 17 mg/dL 7-18 Blood Urea Nitro gen LAURA ([facility]) glomerular filtration rate > 60.0 >56 Glomerula r Filtration Rate LAURA ([facility]) creatinine for GFR 0.96 mg/dL 0.70-1.30 Creatinine for GF R LAURA ([facility]) sodium level 139 mEq/L 136-145 Sodium Level LAURA ([facility]) potassium serum 4.6 mEq/L 3.5-5.1 Potassium Serum AT[facility] ([facility]) chloride level 105 mEq/L 98-107 Chloride Level [place] ([facility]) carbon dioxide level 29 mEq/L 21-32 Carbon Dioxide Level LAURA ([facility]) anion gap 5 mEq/L 8-16 Below low normal Anion Gap LAURA ( [facility]) calcium level 9.6 mg/dL 8.5-10.1 Calcium Level LAURA ( [facility]) ALT/SGPT 21 U/L 12-78 ALT/SGPT [facility] ([facility]) AST/SGOT 15 U/L 7-37 AST/SGOT [facility]A ([facility]) bilirubin,total 0.4 mg/dL 0.2-1.0 Bilirubin,total ATHE ([facility]) alkaline phosphatase 74 U/L 45-117 Alkaline Phosph atase [facility]A ([facility]) total protein 7.4 gm/dL 6.4-8.2 Total Protein LAURA ( [facility]) albumin 4.3 gm/dL 3.2-5.2 Albumin [facility]A ([facility]) albumin/globulin ratio Albumin/globu marcus Ratio LAURA ([facility]) ID Date Data Source [id number] 03/04/2020 10:00:00 AM EST LAURA ([facility]) Name Value Range Interpretation Code Description Data Dasha rce(s) Supporting Document(s) white blood count 6.4 10 4.0-10.0 White Blood Count LA[facility]A ([facility]) red blood count 4.75 10 4.30-6.10 Red Blood Count ATHE NA ([facility]) hemoglobin 14.5 g/dL 13.5-17.5 Hemoglobin LAURA ([facility]) hematocrit 42.9 % 42.0-52.0 Hematocrit LA[facility]A ([facility]) mean corpuscular volume 90.3 fL 80.0-96.0 Mean Corpusc ular Volume LAURA ([facility]) mean corpuscular hemoglobin 30.5 pg 27.0-33.0 Mean Cor puscular Hemoglobin LAURA ([facility]) mean corpuscular HGB conc 33.8 g/dL 32.0-36.5 Mean Corpu scular HGB Conc LAURA ([facility]) platelet count, automated 326 10 150-450 Platelet C ount, Automated LA[facility]A ([facility]) neutrophils % 66.7 % 36.0-66.0 Above high normal Neutrophils % A THENA ([facility]) red cell distribution width 12.1 % 11.5-14.5 Red Cell Distribution Width LAURA ([facility]) mono % 8.5 % 0.0-5.0 Above high normal [place] % LAURA ([facility]) lymph % 21.5 % 24.0-44.0 Below low normal Lymph % LAURA ( [facility]) baso % 1.1 % 0.0-1.0 Above high normal Baso % LAURA ([facility]) eos % 1.7 % 0.0-3.0 Eos % [facility] ([facility]) immature granulocyte % 0.5 % 0-3.0 Immature Gran ulocyte % LAURA ([facility]) nucleated red blood cell % 0.0 % 0-0 Nucleated Red Blood Cell % LAURA ([facility]) neutrophils # 4.3 10 1.5-8.5 Neutrophils # [place] ( [facility]) lymph # 1.4 10 1.5-5.0 Below low normal Lymph # LAURA ( [facility]) mono # 0.5 10 0.0-0.8 [place] # LAURA ([facility]) baso # 0.1 10 0.0-0.2 Baso # [facility]A ([facility]) eos # 0.1 10 0.0-0.5 Eos # [facility] ([facility]) ID Date Data Source [id number] 03/04/2020 10:00:00 AM EST LAURA ([facility]) Name Value Range Interpretation Code Description Data Dasha rce(s) Supporting Document(s) Hemoglobin A1c/Hemoglobin.total in Blood 5.2 % Hemoglobin a1C [facility] ([facility]) estimated average glucose 103 mg/dL 60-110 Estimated Average Glucose [facility] ([facility]) ID Date Data Source [id number] 03/04/2020 10:00:00 AM EST [place]URA ([facility]) Name Value Range Interpretation Code Description Data Dasha rce(s) Supporting Document(s) total 25(oh) vitamin D 53.1 NG/mL 30.0-100.0 Total 25(Oh) Vitamin D [facility] ([facility]) ID Date Data Source [id number] 03/04/2020 10:00:00 AM EST [place]URA ([facility]) Name Value Range Interpretation Code Description Data Dasha rce(s) Supporting Document(s) PSA screening 1.17 NG/mL < 4.00 PSA Screening [facility]A ( [facility]) ID Date Data Source [id number] 03/04/2020 10:00:00 AM EST [place]UR[place] ([facility]) Name Value Range Interpretation Code Description Data Dasha rce(s) Supporting Document(s) Cholesterol in LDL [Mass/volume] in Serum or Plasma 135 mg/dL <100 Above high normal LDL Cholesterol LAURA ([facility]) HDL cholesterol 35 mg/dL >40 Below low normal HDL Cholestero l LAURA ([facility]) cholesterol level 196 mg/dL <200 Cholesterol Level [facility]URA ([facility]) triglycerides level 129 mg/dL <150 Triglycerides [place] ([facility]) cholesterol risk ratio <5 Above high normal Choles terol Risk Ratio LAURA ([facility]) non-HDL-C 161 mg/dL Non-hdl-c [facility]A ([facility]) ID Date Data Source [id number] 03/04/2020 10:00:00 AM EST [place]URA ([facility]) Name Value Range Interpretation Code Description Data Dasha rce(s) Supporting Document(s) glucose, fasting 87 mg/dL 70-100 Glucose, Fasting AT [facility] ([facility]) creatinine for GFR 0.96 mg/dL 0.70-1.30 Creatinine for GF R [place]URA ([facility]) blood urea nitrogen 17 mg/dL 7-18 Blood Urea Nitro gen LAURA ([facility]) potassium serum 4.6 mEq/L 3.5-5.1 Potassium Serum [place] ([facility]) sodium level 139 mEq/L 136-145 Sodium Level LAURA (No [facility]) glomerular filtration rate > 60.0 >56 Glomerula r Filtration Rate LA[facility]A ([facility]) chloride level 105 mEq/L 98-107 Chloride Level [facility] ([facility]) anion gap 5 mEq/L 8-16 Below low normal Anion Gap LAURA ( [facility]) carbon dioxide level 29 mEq/L 21-32 Carbon Dioxide Level [facility] ([facility]) calcium level 9.6 mg/dL 8.5-10.1 Calcium Level LAURA ( [facility]) bilirubin,total 0.4 mg/dL 0.2-1.0 Bilirubin,total ATHE NA ([facility]) ALT/SGPT 21 U/L 12-78 ALT/SGPT [facility] ([facility]) AST/SGOT 15 U/L 7-37 AST/SGOT [facility] ([facility]) alkaline phosphatase 74 U/L 45-117 Alkaline Phosph atase [facility] ([facility]) total protein 7.4 gm/dL 6.4-8.2 Total Protein LAURA ( [facility]) albumin/globulin ratio Albumin/globu marcus Ratio LAURA ([facility]) albumin 4.3 gm/dL 3.2-5.2 Albumin [facility] ([facility]) ID Date Data Source [id number] 03/04/2020 10:00:00 AM EST [place]URA ([facility]) Name Value Range Interpretation Code Description Data Dasha rce(s) Supporting Document(s) white blood count 6.4 10 4.0-10.0 White Blood Count [facility]A ([facility]) hematocrit 42.9 % 42.0-52.0 Hematocrit [facility]A ([facility]) hemoglobin 14.5 g/dL 13.5-17.5 Hemoglobin [facility]URA ([facility]) red blood count 4.75 10 4.30-6.10 Red Blood Count ATHE NA ([facility]) mean corpuscular volume 90.3 fL 80.0-96.0 Mean Corpusc ular Volume LAURA ([facility]) red cell distribution width 12.1 % 11.5-14.5 Red Cell Distribution Width LAURA ([facility]) mean corpuscular HGB conc 33.8 g/dL 32.0-36.5 Mean Corpu scular HGB Conc LAURA ([facility]) mean corpuscular hemoglobin 30.5 pg 27.0-33.0 Mean Cor puscular Hemoglobin [facility]URA ([facility]) neutrophils % 66.7 % 36.0-66.0 Above high normal Neutrophils % A THENA ([facility]) lymph % 21.5 % 24.0-44.0 Below low normal Lymph % LAURA ( [facility]) platelet count, automated 326 10 150-450 Platelet C ount, Automated LA[place]A ([facility]) eos % 1.7 % 0.0-3.0 Eos % [facility]A ([facility]) immature granulocyte % 0.5 % 0-3.0 Immature Gran ulocyte % LAURA ([facility]) mono % 8.5 % 0.0-5.0 Above high normal [place] % LAURA ([facility]) baso % 1.1 % 0.0-1.0 Above high normal Baso % LAURA ([facility]) nucleated red blood cell % 0.0 % 0-0 Nucleated Red Blood Cell % LAURA ([facility]) neutrophils # 4.3 10 1.5-8.5 Neutrophils # [place]URA ( [facility]) lymph # 1.4 10 1.5-5.0 Below low normal Lymph # LAURA ( [facility]) mono # 0.5 10 0.0-0.8 [place] # LAURA ([facility]) baso # 0.1 10 0.0-0.2 Baso # [facility]URA ([facility]) eos # 0.1 10 0.0-0.5 Eos # [facility]A ([facility]) ID Date Data Source [id number] 03/04/2020 10:00:00 AM EST LAURA ([facility]) Name Value Range Interpretation Code Description Data Dasha rce(s) Supporting Document(s) estimated average glucose 103 mg/dL 60-110 Estimated Average Glucose [place] ([facility]) Hemoglobin A1c/Hemoglobin.total in Blood 5.2 % Hemoglobin a1C [place] ([facility]) ID Date Data Source [id number] 03/04/2020 10:00:00 AM EST LAURA ([facility]) Name Value Range Interpretation Code Description Data Dasha rce(s) Supporting Document(s) total 25(oh) vitamin D 53.1 NG/mL 30.0-100.0 Total 25(Oh) Vitamin D [place] ([facility]) ID Date Data Source [id number] 03/04/2020 10:00:00 AM EST LAURA ([facility]) Name Value Range Interpretation Code Description Data Dasha rce(s) Supporting Document(s) PSA screening 1.17 NG/mL < 4.00 PSA Screening [facility]URA ( [facility]) ID Date Data Source [id number] 03/04/2020 10:00:00 AM EST [place]URA ([facility]) Name Value Range Interpretation Code Description Data Dasha rce(s) Supporting Document(s) triglycerides level 129 mg/dL <150 Triglycerides [place] ([facility]) cholesterol level 196 mg/dL <200 Cholesterol Level LAURA ([facility]) Cholesterol in LDL [Mass/volume] in Serum or Plasma 135 mg/dL <100 Above high normal LDL Cholesterol LAURA ([facility]) HDL cholesterol 35 mg/dL >40 Below low normal HDL Cholestero l LAURA ([facility]) non-HDL-C 161 mg/dL Non-hdl-c [facility]A ([facility]) cholesterol risk ratio <5 Above high normal Choles terol Risk Ratio LAURA ([facility]) ID Date Data Source [id number] 03/04/2020 10:00:00 AM EST [place]URA ([facility]) Name Value Range Interpretation Code Description Data Dasha rce(s) Supporting Document(s) blood urea nitrogen 17 mg/dL 7-18 Blood Urea Nitro gen [facility]A ([facility]) glucose, fasting 87 mg/dL 70-100 Glucose, Fasting AT [facility]) glomerular filtration rate > 60.0 >56 Glomerula r Filtration Rate [facility]A ([facility]) creatinine for GFR 0.96 mg/dL 0.70-1.30 Creatinine for GF R [place] ([facility]) sodium level 139 mEq/L 136-145 Sodium Level LAURA ([facility]) potassium serum 4.6 mEq/L 3.5-5.1 Potassium Serum ATHE NA ([facility]) chloride level 105 mEq/L 98-107 Chloride Level [facility]A ([facility]) carbon dioxide level 29 mEq/L 21-32 Carbon Dioxide Level [facility] ([facility]) anion gap 5 mEq/L 8-16 Below low normal Anion Gap LA[facility]A ( [facility]) calcium level 9.6 mg/dL 8.5-10.1 Calcium Level LA[facility]A ( [facility]) AST/SGOT 15 U/L 7-37 AST/SGOT [facility] ([facility]) ALT/SGPT 21 U/L 12-78 ALT/SGPT [facility] ([facility]) alkaline phosphatase 74 U/L 45-117 Alkaline Phosph atase [facility]A ([facility]) bilirubin,total 0.4 mg/dL 0.2-1.0 Bilirubin,total ATHE NA ([facility]) total protein 7.4 gm/dL 6.4-8.2 Total Protein LAURA ( [facility]) albumin 4.3 gm/dL 3.2-5.2 Albumin LAURA ([facility]) albumin/globulin ratio Albumin/globu marcus Ratio LAURA ([facility]) ID Date Data Source [id number] 03/04/2020 10:00:00 AM EST [place]URA ([facility]) Name Value Range Interpretation Code Description Data Dasha rce(s) Supporting Document(s) white blood count 6.4 10 4.0-10.0 White Blood Count [facility]A ([facility]) red blood count 4.75 10 4.30-6.10 Red Blood Count ATHE ([facility]) hemoglobin 14.5 g/dL 13.5-17.5 Hemoglobin LA[facility]A ([facility]) hematocrit 42.9 % 42.0-52.0 Hematocrit LA[facility]A ([facility]) mean corpuscular volume 90.3 fL 80.0-96.0 Mean Corpusc ular Volume LAURA ([facility]) red cell distribution width 12.1 % 11.5-14.5 Red Cell Distribution Width [facility]A ([facility]) mean corpuscular hemoglobin 30.5 pg 27.0-33.0 Mean Cor puscular Hemoglobin LAURA ([facility]) mean corpuscular HGB conc 33.8 g/dL 32.0-36.5 Mean Corpu scular HGB Conc LA[facility]A ([facility]) platelet count, automated 326 10 150-450 Platelet C ount, Automated [place] ([facility]) neutrophils % 66.7 % 36.0-66.0 Above high normal Neutrophils % A THENA ([facility]) mono % 8.5 % 0.0-5.0 Above high normal [place] % LAURA ([facility]) lymph % 21.5 % 24.0-44.0 Below low normal Lymph % LAURA ( [facility]) eos % 1.7 % 0.0-3.0 Eos % [facility]A ([facility]) baso % 1.1 % 0.0-1.0 Above high normal Baso % LAURA ([facility]) immature granulocyte % 0.5 % 0-3.0 Immature Gran ulocyte % LA[facility]A ([facility]) nucleated red blood cell % 0.0 % 0-0 Nucleated Red Blood Cell % LA[facility]A ([facility]) neutrophils # 4.3 10 1.5-8.5 Neutrophils # [place]A ( [facility]) lymph # 1.4 10 1.5-5.0 Below low normal Lymph # LAURA ( [facility]) mono # 0.5 10 0.0-0.8 [place] # LAURA ([facility]) baso # 0.1 10 0.0-0.2 Baso # [facility]URA ([facility]) eos # 0.1 10 0.0-0.5 Eos # [facility]A ([facility]) ID Date Data Source [id number] 03/04/2020 10:00:00 AM EST [place]URA ([facility]) Name Value Range Interpretation Code Description Data Dasha rce(s) Supporting Document(s) Hemoglobin A1c/Hemoglobin.total in Blood 5.2 % Hemoglobin a1C [facility] ([facility]) estimated average glucose 103 mg/dL 60-110 Estimated Average Glucose [place] ([facility]) ID Date Data Source [id number] 03/04/2020 10:00:00 AM EST [place]URA ([facility]) Name Value Range Interpretation Code Description Data Dasha rce(s) Supporting Document(s) total 25(oh) vitamin D 53.1 NG/mL 30.0-100.0 Total 25(Oh) Vitamin D [place] ([facility]) ID Date Data Source [id number] 03/04/2020 10:00:00 AM EST [place] ([facility]) Name Value Range Interpretation Code Description Data Dasha rce(s) Supporting Document(s) PSA screening 1.17 NG/mL < 4.00 PSA Screening [place] ( [facility]) ID Date Data Source [id number] 03/04/2020 10:00:00 AM EST [place] ([facility]) Name Value Range Interpretation Code Description Data Dasha rce(s) Supporting Document(s) triglycerides level 129 mg/dL <150 Triglycerides [place] LAURA ([facility]) Cholesterol in LDL [Mass/volume] in Serum or Plasma 135 mg/dL <100 Above high normal LDL Cholesterol LAURA ([facility]) cholesterol level 196 mg/dL <200 Cholesterol Level [place] ([facility]) HDL cholesterol 35 mg/dL >40 Below low normal HDL Cholestero l LAURA ([facility]) cholesterol risk ratio <5 Above high normal Choles terol Risk Ratio LAURA ([facility]) non-HDL-C 161 mg/dL Non-hdl-c [facility] ([facility]) ID Date Data Source [id number] 03/04/2020 10:00:00 AM EST [place] ([facility]) Name Value Range Interpretation Code Description Data Dasha rce(s) Supporting Document(s) glucose, fasting 87 mg/dL 70-100 Glucose, Fasting AT [facility] ([facility]) blood urea nitrogen 17 mg/dL 7-18 Blood Urea Nitro gen LAURA ([facility]) creatinine for GFR 0.96 mg/dL 0.70-1.30 Creatinine for GF R [place]A ([facility]) glomerular filtration rate > 60.0 >56 Glomerula r Filtration Rate LAURA ([facility]) sodium level 139 mEq/L 136-145 Sodium Level LAURA ([facility]) carbon dioxide level 29 mEq/L 21-32 Carbon Dioxide Level LAURA ([facility]) chloride level 105 mEq/L 98-107 Chloride Level LAURA ([facility]) anion gap 5 mEq/L 8-16 Below low normal Anion Gap LAURA ( [facility]) potassium serum 4.6 mEq/L 3.5-5.1 Potassium Serum ATHE NA ([facility]) alkaline phosphatase 74 U/L 45-117 Alkaline Phosph atase [facility]URA ([facility]) calcium level 9.6 mg/dL 8.5-10.1 Calcium Level LAURA ( [facility]) AST/SGOT 15 U/L 7-37 AST/SGOT [facility] ([facility]) ALT/SGPT 21 U/L 12-78 ALT/SGPT [facility] ([facility]) albumin 4.3 gm/dL 3.2-5.2 Albumin LAURA ([facility]) bilirubin,total 0.4 mg/dL 0.2-1.0 Bilirubin,total ATHE NA ([facility]) albumin/globulin ratio Albumin/globu marcus Ratio LAURA ([facility]) total protein 7.4 gm/dL 6.4-8.2 Total Protein LAURA ( [facility]) ID Date Data Source [id number] 03/04/2020 10:00:00 AM EST [facility]URA ([facility]) Name Value Range Interpretation Code Description Data Dasha rce(s) Supporting Document(s) white blood count 6.4 10 4.0-10.0 White Blood Count LAURA ([facility]) red blood count 4.75 10 4.30-6.10 Red Blood Count ATHE ([facility]) hematocrit 42.9 % 42.0-52.0 Hematocrit LAURA ([facility]) hemoglobin 14.5 g/dL 13.5-17.5 Hemoglobin LAURA ([facility]) mean corpuscular volume 90.3 fL 80.0-96.0 Mean Corpusc ular Volume LAURA ([facility]) mean corpuscular hemoglobin 30.5 pg 27.0-33.0 Mean Cor puscular Hemoglobin LAURA ([facility]) mean corpuscular HGB conc 33.8 g/dL 32.0-36.5 Mean Corpu scular HGB Conc LAURA ([facility]) neutrophils % 66.7 % 36.0-66.0 Above high normal Neutrophils % A THENA ([facility]) platelet count, automated 326 10 150-450 Platelet C ount, Automated LAURA ([facility]) lymph % 21.5 % 24.0-44.0 Below low normal Lymph % [place] ( [facility]) red cell distribution width 12.1 % 11.5-14.5 Red Cell Distribution Width [place] ([facility]) baso % 1.1 % 0.0-1.0 Above high normal Baso % [place] ([facility]) eos % 1.7 % 0.0-3.0 Eos % [place] ([facility]) mono % 8.5 % 0.0-5.0 Above high normal [place] % [place] ([facility]) lymph # 1.4 10 1.5-5.0 Below low normal Lymph # [place] ( [facility]) neutrophils # 4.3 10 1.5-8.5 Neutrophils # [place] ( [facility]) nucleated red blood cell % 0.0 % 0-0 Nucleated Red Blood Cell % [place] ([facility]) immature granulocyte % 0.5 % 0-3.0 Immature Gran ulocyte % LAURA ([facility]) mono # 0.5 10 0.0-0.8 [place] # LAURA ([facility]) eos # 0.1 10 0.0-0.5 Eos # [facility]URA ([facility]) baso # 0.1 10 0.0-0.2 Baso # [place] ([facility]) Procedure Social History Code Duration Value Status Description Data Source(s ) Smoking 01/25/2021 12:00:00 AM EDT Unknown if ever smoked comp leted [facility] if [facility] Smoking 12/29/2020 12:00:00 AM EDT Unknown if ever smoked comp leted Unknown if ever smoked [facility] ([facility]) Smoking 10/06/2020 12:00:00 AM EDT Unknown if ever smoked comp leted Unknown if ever smoked [facility] ([facility]) Smoking 08/29/2020 12:00:00 AM EDT Unknown if ever smoked comp leted Unknown if ever smoked [facility] ([facility]) Smoking 07/14/2020 12:00:00 AM EDT Unknown if ever smoked comp leted Unknown if ever smoked [facility] ([facility]) Smoking 07/04/2020 12:00:00 AM EDT Unknown if ever smoked comp leted Unknown if ever smoked [facility] ([facility]) Smoking 06/06/2020 12:00:00 AM EST Unknown if ever smoked comp leted Unknown if ever smoked [facility] ([facility]) Smoking 06/02/2020 12:00:00 AM EST Unknown if ever smoked comp leted Unknown if ever smoked [facility] ([facility]) Smoking 04/06/2020 12:00:00 AM EST Unknown if ever smoked comp leted Unknown if ever smoked [facility] ([facility]) Smoking 01/13/2020 12:00:00 AM EDT Unknown if ever smoked comp leted Unknown if ever smoked [facility] ([facility]) Smoking 12/30/2019 12:00:00 AM EDT Unknown if ever smoked comp leted Unknown if ever smoked [facility] ([facility]) Smoking 12/18/2019 12:00:00 AM EDT Unknown if ever smoked comp leted Unknown if ever smoked [facility] ([facility]) Vital Signs ID Date Data Source UNK Name Value Range Interpretation Code Description Data Source(s) Diastolic blood pressure 74 mm[Hg] 74 mm[Hg] [place] ([facility]) Body height 71 [in_i] 71 [in_i] [place] ([facility]) Body mass index (BMI) [Ratio] 27.2 kg/m2 27.2 k g/m2 [place] ([facility]) Systolic blood pressure 117 mm[Hg] 117 mm[Hg] A THENA ([facility]) Body weight 3120 [oz_av] 3120 [oz_av] LAURA ([facility]) Systolic blood pressure 112 mm[Hg] 112 mm[Hg] M EDENT ([facility], ) Diastolic blood pressure 68 mm[Hg] 68 mm[Hg] MEDENT ([facility]) Body height 69 [in_i] 69 [in_i] [facility] ([facility]) 5'9" Body weight 194.00 [lb_av] 194.00 [lb_av] MEDEN T ([facility]) Body mass index (BMI) [Ratio] 28.6 kg/m2 28.6 k g/m2 [facility] ([facility]) [place] body weight 160 [lb_av] 160 [lb_av] MEDEN T ([facility]) Body weight 87.998 kg 87.998 kg [facility] ([facility]) Body surface area Derived from formula 2.04 m2 2.04 m2 [facility] ([facility]) Body height 71 [in_i] 71 [in_i] LAURA ([facility]) Body height 71 [in_i] 71 [in_i] LAURA ([facility]) Body height 69 [in_i] 69 [in_i] MEDENT ([facility] ) 5'9" Body temperature 96.6 [degF] 96.6 [degF] MEDENT ([facility] ) Diastolic blood pressure 68 mm[Hg] 68 mm[Hg] LAURA ([facility]) Body height 71 [in_i] 71 [in_i] LAURA ([facility]) Body mass index (BMI) [Ratio] 26.7 kg/m2 26.7 k g/m2 [facility] ([facility]) Systolic blood pressure 109 mm[Hg] 109 mm[Hg] A THENA ([facility]) Body weight 3059.2 [oz_av] 3059.2 [oz_av] ATHEN A ([facility]) Systolic blood pressure 109 mm[Hg] 109 mm[Hg] A THENA ([facility]) Diastolic blood pressure 68 mm[Hg] 68 mm[Hg] LAURA ([facility]) Body height 71 [in_i] 71 [in_i] LAURA ([facility]) Body mass index (BMI) [Ratio] 26.7 kg/m2 26.7 k g/m2 [facility] ([facility]) Body weight 3059.2 [oz_av] 3059.2 [oz_av] ATHEN A ([facility]) Body weight 3059.2 [oz_av] 3059.2 [oz_av] ATHEN A ([facility]) Diastolic blood pressure 68 mm[Hg] 68 mm[Hg] LAURA ([facility]) Body height 71 [in_i] 71 [in_i] [facility]UR[facility] ([facility]) Body mass index (BMI) [Ratio] 26.7 kg/m2 26.7 k g/m2 [facility] ([facility]) Systolic blood pressure 109 mm[Hg] 109 mm[Hg] A THENA ([facility]) Body height 71 [in_i] 71 [in_i] LAURA ([facility]) Body height 71 [in_i] 71 [in_i] LAURA ([facility]) Body height 71 [in_i] 71 [in_i] LAURA ([facility]) Body height 71 [in_i] 71 [in_i] LAURA ([facility]) Body height 71 [in_i] 71 [in_i] LAURA ([facility]) Body height 71 [in_i] 71 [in_i] LAURA ([facility]) Body height 71 [in_i] 71 [in_i] LAURA ([facility]) Body height 71 [in_i] 71 [in_i] LAURA ([facility]) Body height 71 [in_i] 71 [in_i] LAURA ([facility]) Body height 0.00 in Normal (applies to non-numeric resu lts) 0.00 in [facility] ([facility]) Body weight Measured 0.00 lbs Normal (applies to n on-numeric results) 0.00 lbs [facility] ([facility]) Body mass index (BMI) [Ratio] 0.00 kg/m2 No rmal (applies to non-numeric results) 0.00 kg/m2 [facility] ([facility]) Systolic blood pressure 0 mm[Hg] Normal (applies t o non-numeric results) 0 mm[Hg] [facility] ([facility]) Diastolic blood pressure 0 mm[Hg] Normal (applies to non-numeric results) 0 mm[Hg] [facility] ([facility]) Body height 0.00 in Normal (applies to non-numeric resu lts) 0.00 in [facility] ([facility]) Body weight Measured 0.00 lbs Normal (applies to n on-numeric results) 0.00 lbs [facility] ([facility]) Body mass index (BMI) [Ratio] 0.00 kg/m2 No rmal (applies to non-numeric results) 0.00 kg/m2 [facility] ([facility]) Systolic blood pressure 0 mm[Hg] Normal (applies t o non-numeric results) 0 mm[Hg] [facility] ([facility]) Diastolic blood pressure 0 mm[Hg] Normal (applies to non-numeric results) 0 mm[Hg] [facility] ([facility]) Body height 0.00 in Normal (applies to non-numeric resu lts) 0.00 in [facility] ([facility]) Body weight Measured 0.00 lbs Normal (applies to n on-numeric results) 0.00 lbs [facility] ([facility]) Body mass index (BMI) [Ratio] 0.00 kg/m2 No rmal (applies to non-numeric results) 0.00 kg/m2 [facility] ([facility]) Systolic blood pressure 0 mm[Hg] Normal (applies t o non-numeric results) 0 mm[Hg] [facility] ([facility]) Diastolic blood pressure 0 mm[Hg] Normal (applies to non-numeric results) 0 mm[Hg] [facility] ([facility]) Body mass index (BMI) [Ratio] 29.2 kg/m2 29.2 k g/m2 [facility] ([facility]) Diastolic blood pressure 71 mm[Hg] 71 mm[Hg] LAURA ([facility]) Systolic blood pressure 111 mm[Hg] 111 mm[Hg] A THENA ([facility]) Body height 71 [in_i] 71 [in_i] LAURA ([facility]) Body weight 3346 [oz_av] 3346 [oz_av] LAURA ([facility]) Body weight 3346 [oz_av] 3346 [oz_av] LAURA ([facility]) Diastolic blood pressure 71 mm[Hg] 71 mm[Hg] LAURA ([facility]) Diastolic blood pressure 71 mm[Hg] 71 mm[Hg] LAURA ([facility]) Body height 71 [in_i] 71 [in_i] [facility]UR[facility] ([facility]) Body mass index (BMI) [Ratio] 29.2 kg/m2 29.2 k g/m2 [facility] ([facility]) Systolic blood pressure 111 mm[Hg] 111 mm[Hg] A THENA ([facility]) Body height 71 [in_i] 71 [in_i] LAURA ([facility]) Body mass index (BMI) [Ratio] 29.2 kg/m2 29.2 k g/m2 [facility] ([facility]) Systolic blood pressure 111 mm[Hg] 111 mm[Hg] A THENA ([facility]) Body weight 3346 [oz_av] 3346 [oz_av] LAURA ([facility]) Diastolic blood pressure 71 mm[Hg] 71 mm[Hg] LAURA ([facility]) Body height 71 [in_i] 71 [in_i] [facility]URA ([facility]) Body mass index (BMI) [Ratio] 29.2 kg/m2 29.2 k g/m2 [facility] ([facility]) Systolic blood pressure 111 mm[Hg] 111 mm[Hg] A THENA ([facility]) Body weight 3346 [oz_av] 3346 [oz_av] LAURA ([facility]) Diastolic blood pressure 71 mm[Hg] 71 mm[Hg] LAURA ([facility]) Body height 71 [in_i] 71 [in_i] [facility]UR[facility] ([facility]) Body mass index (BMI) [Ratio] 29.2 kg/m2 29.2 k g/m2 [facility] ([facility]) Systolic blood pressure 111 mm[Hg] 111 mm[Hg] A THENA ([facility]) Body weight 3346 [oz_av] 3346 [oz_av] [facility]URA ([facility]) Diastolic blood pressure 71 mm[Hg] 71 mm[Hg] LAUR[facility] ([facility]) Body height 71 [in_i] 71 [in_i] [facility]URA ([facility]) Body mass index (BMI) [Ratio] 29.2 kg/m2 29.2 k g/m2 [facility] ([facility]) Systolic blood pressure 111 mm[Hg] 111 mm[Hg] A THENA ([facility]) Body weight 3346 [oz_av] 3346 [oz_av] LAURA ([facility]) Diastolic blood pressure 71 mm[Hg] 71 mm[Hg] LAURA ([facility]) Body height 71 [in_i] 71 [in_i] LAURA ([facility]) Body mass index (BMI) [Ratio] 29.2 kg/m2 29.2 k g/m2 [facility] ([facility]) Systolic blood pressure 111 mm[Hg] 111 mm[Hg] A THENA ([facility]) Body weight 3346 [oz_av] 3346 [oz_av] LAURA ([facility]) Body height 0.00 in Normal (applies to non-numeric resu lts) [facility] Body weight Measured 0.00 lbs Normal (applies to n on-numeric results) 0.00 lbs [facility] ([facility]) Body mass index (BMI) [Ratio] 0.00 kg/m2 No rmal (applies to non-numeric results) 0.00 kg/m2 [facility] ([facility]) Systolic blood pressure 0 mm[Hg] Normal (applies t o non-numeric results) 0 mm[Hg] [facility] ([facility]) Diastolic blood pressure 0 mm[Hg] Normal (applies to non-numeric results) 0 mm[Hg] [facility] ([facility]) Patient Treatment Plan of Care Planned Activity Planned Date Details Description Data Source (s) Omeprazole 20 MG Del[facility] Del[facility] 20 MG Delayed Release [facility]] [facility] Om[facility] 20 MG Delayed Release Oral Tablet [Prilosec] [facility]) Omeprazole 20 MG Delayed Release [facility]] [facility] Om[facility] 20 MG Delayed Release Oral Tablet [Prilosec] [facility]) Omeprazole 20 MG Delayed Release [facility]
[2021-01-30] MEDS ORDERED: LIDOCAINE 2% 100MG/5ML SDV (FOR ANES.) As Ordered ONE (09:20)
[2021-01-30] MEDS ORDERED: propofoL 200 MG/20 ML VIAL As Ordered ONE (09:20)
--- NOTE | 2021-01-30 09:24 | ROOR ---
Patient Name: Jordon Verde Procedure Date: 01/30/2021 8:51 AM Date of : 1970 Age: 50 Room: [facility] Gender: Male Note Status: Finalized Procedure: Colonoscopy Indications: Screening for colorectal malignant neoplasm Providers: Anand Bond MD Referring MD: Nicole Pelaez NP Requesting Provider: Medicines: Monitored Anesthesia Care Complications: No immediate complications. Procedure: Pre-Anesthesia Assessment: - Prior to the procedure, a History and Physical was performed, and patient medications and allergies were reviewed. The patient is competent. The risks and benefits of the procedure and the sedation options and risks were discussed with the patient. All questions were answered and informed consent was obtained. Patient identification and proposed procedure were verified by the physician, the nurse and the anesthesiologist in the procedure room. Mental Status Examination: alert and oriented. Airway Examination: normal oropharyngeal airway and neck mobility. Respiratory Examination: clear to auscultation. CV Examination: normal. Prophylactic Antibiotics: The patient does not require prophylactic antibiotics. Prior Anticoagulants: The patient has taken no previous anticoagulant or antiplatelet agents. ASA Grade Assessment: II - A patient with mild systemic disease. After reviewing the risks and benefits, the patient was deemed in satisfactory condition to undergo the procedure. The anesthesia plan was to use monitored anesthesia care (MAC). Immediately prior to administration of medications, the patient was re-assessed for adequacy to receive sedatives. The heart rate, respiratory rate, oxygen saturations, blood pressure, adequacy of pulmonary ventilation, and response to care were monitored throughout the procedure. The physical status of the patient was re-assessed after the procedure. The Colonoscope was introduced through the anus and advanced to the terminal ileum, with identification of the appendiceal orifice and IC valve. The colonoscopy was performed without difficulty. The patient tolerated the procedure well. The quality of the bowel preparation was good. The terminal ileum, ileocecal valve, appendiceal orifice, and rectum were photographed. Scope insertion time was 2 minutes. Scope withdrawal time was 8 minutes. The total duration of the procedure was 10 minutes. Findings: The perianal and digital rectal examinations were normal. The terminal ileum appeared normal. Two sessile polyps were found in the rectum. The polyps were 3 to 5 mm in size. These polyps were removed with a jumbo cold forceps. Resection and retrieval were complete. Verification of patient identification for the specimen was done by the physician and nurse using the patient's name, date and medical record number. Estimated blood loss was minimal. A large scar was found in the descending colon and in the distal transverse colon. The scar tissue was healthy in appearance. Multiple small and large-mouthed diverticula were found in the sigmoid colon. There was no evidence of diverticular bleeding. Non-bleeding external and internal hemorrhoids were found during retroflexion. The hemorrhoids were medium-sized. Impression: - The examined portion of the ileum was normal. - Two 3 to 5 mm polyps in the rectum, removed with a jumbo cold forceps. Resected and retrieved. - Scar in the descending colon and in the distal transverse colon. - Moderate diverticulosis in the sigmoid colon. There was no evidence of diverticular bleeding. - Non-bleeding external and internal hemorrhoids. Recommendation: - Patient has a contact number available for emergencies. The signs and symptoms of potential delayed complications were discussed with the patient. Return to normal activities tomorrow. Written discharge instructions were provided to the patient. - High fiber diet. - Continue present medications. - Await pathology results. - Repeat colonoscopy in 5-10 years for surveillance based on pathology results. - Telephone GI clinic for pathology results in 2 weeks. - Return to primary care physician. Procedure Code(s): --- Professional --- 68771, Colonoscopy, flexible; with biopsy, single or multiple Diagnosis Code(s): --- Professional --- Z12.11, Encounter for screening for malignant neoplasm of colon K64.8, Other hemorrhoids K62.1, Rectal polyp K63.89, Other specified diseases of intestine K57.30, Diverticulosis of large intestine without perforation or abscess without bleeding CPT copyright 2019 [employer]. All rights reserved. The codes documented in this report are preliminary and upon enterprise application architect review may be revised to meet current compliance requirements. Anand Bond MD Anand Bond MD 01/30/2021 9:23:55 AM Electronically signed by Anand Bond MD Number of Addenda: 0 Note Initiated On: 01/30/2021 8:51 AM Estimated Blood Loss: Estimated blood loss was minimal.
[2021-01-30 09:39] VITALS: BP 128/75
== END 2021-01-30 09:38 | disposition home or self-care (01) ==
LOC: M OPP 07:50
PROVIDERS: ATTEND Internal Medicine Gastroenterology
DX: Z12.11 Encounter for screening for malignant neoplasm of colon (principal); K63.5 Polyp of colon; K63.89 Other specified diseases of intestine; K57.30 Diverticulosis of large intestine without perforation or abscess without bleeding; K64.8 Other hemorrhoids; Z79.82 Long term (current) use of aspirin; Z79.899 Other long term (current) drug therapy

== ENCOUNTER → 2021-05-29 | Outpatient (CLI) | payer MEDICAID ==
[~2021-05-29] MED LIST changes: +ISOVUE-370 76% 100ML VIAL As Ordered ONE; -NS 1,000 ML IV ONE
== END ==
LOC: M RAD 17:08
PROVIDERS: ATTEND Family Medicine Addiction Medicine
DX: R91.1 Solitary pulmonary nodule (principal); M79.89 Other specified soft tissue disorders
CPT/HCPCS: 71260; Q9967

== ENCOUNTER → 2022-02-14 | Outpatient (CLI) | payer MEDICAID ==
[~2022-02-14] MED LIST changes: +E-Z-GAS II EFFERVESCENT PACKET (SODIUM BICARB./CITRIC ACID/SIMETHICONE) As Ordered ONE; +E-Z-HD 98% w/w 340GM SUSP BTL As Ordered ONE; +E-Z-PAQUE 96% w/w SUSP 176GM BTL As Ordered ONE; -ISOVUE-370 76% 100ML VIAL As Ordered ONE
== END ==
LOC: M RAD 09:00
PROVIDERS: ATTEND Nurse Practitioner Family
DX: R13.10 Dysphagia, unspecified (principal)

== ENCOUNTER → 2022-04-24 | Outpatient (REF) | payer MEDICAID ==
[~2022-04-24] MED LIST changes: -E-Z-GAS II EFFERVESCENT PACKET (SODIUM BICARB./CITRIC ACID/SIMETHICONE) As Ordered ONE; -E-Z-HD 98% w/w 340GM SUSP BTL As Ordered ONE; -E-Z-PAQUE 96% w/w SUSP 176GM BTL As Ordered ONE
[2022-04-24 18:07] LABS: CHOLESTEROL RISK RATIO 4.59 (<5); HDL CHOLESTEROL 31.8 MG/DL (>40)
== END ==
LOC: M LAB REF 16:34
PROVIDERS: ATTEND Nurse Practitioner Family
DX: E78.5 Hyperlipidemia, unspecified (principal)

== ENCOUNTER → 2022-04-30 | Outpatient (CLI) | payer MEDICAID ==
[~2022-04-30] MED LIST changes: +BARIUM SULFATE 700 MG TABLET (E-Z-DISK) As Ordered ONE; +E-Z-PAQUE 96% w/w SUSP 176GM BTL As Ordered ONE; +VARIBAR NECTAR 40% w/v 240ML SUSP BTL As Ordered ONE; +VARIBAR PUDDING 40% w/v 230ML TUBE As Ordered ONE
== END ==
LOC: M RAD 10:59
PROVIDERS: ATTEND Nurse Practitioner Family
DX: R13.10 Dysphagia, unspecified (principal)

== ENCOUNTER 2022-05-21 19:36 | Emergency (ER) | payer MEDICAID ==
[~2022-05-21] VITALS: Ht 175.3 cm; Wt 179.0 kg
[~2022-05-21 19:36] MED LIST changes: -BARIUM SULFATE 700 MG TABLET (E-Z-DISK) As Ordered ONE; -E-Z-PAQUE 96% w/w SUSP 176GM BTL As Ordered ONE; -VARIBAR NECTAR 40% w/v 240ML SUSP BTL As Ordered ONE; -VARIBAR PUDDING 40% w/v 230ML TUBE As Ordered ONE
[2022-05-21 19:38] VITALS: BP 94/54
== END 2022-05-21 21:05 | disposition left against medical advice (07) ==
LOC: M ED 19:36
DX: Z53.21 Procedure and treatment not carried out due to patient leaving prior to being seen by health care provider (principal)

== ENCOUNTER → 2022-05-23 | Outpatient (CLI) | payer MEDICAID | LOC: M WUC 13:04 | PROVIDERS: ATTEND Family Medicine Addiction Medicine | DX: M51.36 Other intervertebral disc degeneration, lumbar region (principal); K59.09 Other constipation ==

== ENCOUNTER → 2022-08-14 | Outpatient (REF) | payer MEDICAID ==
[2022-08-14 17:17] LABS: ALBUMIN 4.3 G/DL (3.2-5.2); ALKALINE PHOSPHATASE 87 U/L (46-116); ALT/SGPT 18 U/L (7.0-40); AST/SGOT 22 U/L (<34); BILIRUBIN,TOTAL 0.3 MG/DL (0.3-1.2); BLOOD UREA NITROGEN 19 MG/DL (9-23); CALCIUM LEVEL 9.3 MG/DL (8.5-10.1); CARBON DIOXIDE LEVEL 28 MMOL/L (20-31); CHLORIDE LEVEL 103 MMOL/L (98-107); CHOLESTEROL LEVEL 129 MG/DL (<200); GLOMERULAR FILTRATION RATE > 60.0 (>56); GLUCOSE, FASTING 81 MG/DL (60-100); HDL CHOLESTEROL 33.9 MG/DL (>40); LDL CHOLESTEROL 76.3 MG/DL (<100); NON-HDL-C 95.1 MG/DL; POTASSIUM SERUM 4.5 MMOL/L (3.5-5.1); SODIUM LEVEL 139 MMOL/L (136-145); TOTAL PROTEIN 6.5 G/DL (5.7-8.2); TRIGLYCERIDES LEVEL 94 MG/DL (<150)
[2022-08-14 17:22] LABS: THYROID STIMULATING HORMONE 0.358 uIU/ML (0.55-4.78)
[2022-08-14 17:24] LABS: FREE T4 0.89 NG/DL (0.89-1.76)
[2022-08-14 17:25] LABS: BASO # 0.1 10^3/uL (0.0-0.2); BASO % 1.1 % (0.0-1.0); EOS # 0.1 10^3/uL (0.0-0.5); EOS % 1.8 % (0.0-3.0); HEMATOCRIT 36.1 % (42.0-52.0); HEMOGLOBIN 12.2 g/dl (13.5-17.5); LYMPH # 1.4 10^3/uL (1.5-5.0); MEAN CORPUSCULAR HEMOGLOBIN 30.3 pg (27.0-33.0); MEAN CORPUSCULAR HGB CONC 33.8 g/dl (32.0-36.5); MEAN CORPUSCULAR VOLUME 89.8 fl (80.0-96.0); MONO # 0.5 10^3/uL (0.0-0.8); MONO % 8.1 % (2.0-8.0); NEUTROPHILS # 4.4 10^3/uL (1.5-8.5); NEUTROPHILS % 66.5 % (36.0-66.0); PLATELET COUNT, AUTOMATED 354 10^3/uL (150-450); RED BLOOD COUNT 4.02 10^6/uL (4.30-6.10); WHITE BLOOD COUNT 6.5 10^3/uL (4.0-10.0)
== END ==
LOC: M LAB REF 16:36
PROVIDERS: ATTEND Nurse Practitioner Family
DX: Z13.228 Encounter for screening for other metabolic disorders (principal)

== ENCOUNTER → 2022-10-22 | Outpatient (REF) | payer MEDICAID ==
[2022-10-22 13:06] LABS: BASO # 0.1 10^3/uL (0.0-0.2); BASO % 0.8 % (0.0-1.0); EOS # 0.1 10^3/uL (0.0-0.5); EOS % 1.2 % (0.0-3.0); HEMATOCRIT 35.2 % (42.0-52.0); LYMPH # 1.1 10^3/uL (1.5-5.0); LYMPH % 15.2 % (24.0-44.0); MEAN CORPUSCULAR HEMOGLOBIN 31.2 pg (27.0-33.0); MEAN CORPUSCULAR HGB CONC 34.1 g/dl (32.0-36.5); MEAN CORPUSCULAR VOLUME 91.4 fl (80.0-96.0); MONO # 0.6 10^3/uL (0.0-0.8); MONO % 8.1 % (2.0-8.0); NEUTROPHILS # 5.5 10^3/uL (1.5-8.5); NEUTROPHILS % 74.2 % (36.0-66.0); PLATELET COUNT, AUTOMATED 354 10^3/uL (150-450); RED BLOOD COUNT 3.85 10^6/uL (4.30-6.10); WHITE BLOOD COUNT 7.5 10^3/uL (4.0-10.0)
== END ==
LOC: M LAB REF 11:52
PROVIDERS: ATTEND Nurse Practitioner Family
DX: Z13.228 Encounter for screening for other metabolic disorders (principal)

== ENCOUNTER → 2022-10-29 | Outpatient (REF) | payer MEDICAID ==
[2022-10-29 13:02] LABS: THYROGLOBULIN ANTIBODY < 15.0 U/ML (<60.0); THYROID STIMULATING HORMONE 0.416 uIU/ML (0.55-4.78)
[2022-10-29 13:03] LABS: FERRITIN 199.6 NG/ML (10.5-307.3); FREE T4 0.92 NG/DL (0.89-1.76); THYROID PEROXIDASE ANTIBODY 34 U/ML (<60.0)
[2022-10-29 13:04] LABS: FOLATE 12.57 NG/ML (>5.4); IRON (FE) 58 UG/DL (65-175); PERCENT SATURATION 21.2 % (19.7-50.0); TOTAL IRON BINDING CAPACITY 274 UG/DL (250-425)
[2022-10-29 13:05] LABS: VITAMIN B12 LEVEL 373 PG/ML (211-911)
== END ==
LOC: M LAB REF 11:24
PROVIDERS: ATTEND Nurse Practitioner Family
DX: R89.1 Abnormal level of hormones in specimens from other organs, systems and tissues (principal); R71.0 Precipitous drop in hematocrit

== ENCOUNTER → 2022-11-21 | Outpatient (REF) | payer MEDICAID ==
[2022-11-21 17:10] LABS: BASO # 0.1 10^3/uL (0.0-0.2); BASO % 1.2 % (0.0-1.0); EOS # 0.1 10^3/uL (0.0-0.5); EOS % 2.4 % (0.0-3.0); HEMATOCRIT 38.4 % (42.0-52.0); HEMOGLOBIN 12.7 g/dl (13.5-17.5); LYMPH # 1.2 10^3/uL (1.5-5.0); LYMPH % 19.5 % (24.0-44.0); MEAN CORPUSCULAR HEMOGLOBIN 30.2 pg (27.0-33.0); MEAN CORPUSCULAR HGB CONC 33.1 g/dl (32.0-36.5); MEAN CORPUSCULAR VOLUME 91.2 fl (80.0-96.0); MONO # 0.6 10^3/uL (0.0-0.8); MONO % 9.2 % (2.0-8.0); PLATELET COUNT, AUTOMATED 302 10^3/uL (150-450); RED BLOOD COUNT 4.21 10^6/uL (4.30-6.10)
== END ==
LOC: M LAB REF 16:26
PROVIDERS: ATTEND Nurse Practitioner Family
DX: R71.0 Precipitous drop in hematocrit (principal)

== ENCOUNTER → 2022-11-28 | Outpatient (REF) | payer MEDICAID ==
[2022-11-28 17:14] LABS: INR 0.96; PROTHROMBIN TIME 12.5 SECONDS (12.5-14.5)
[2022-11-28 17:26] LABS: BLOOD UREA NITROGEN 20 MG/DL (9-23); CALCIUM LEVEL 9.7 MG/DL (8.5-10.1); CARBON DIOXIDE LEVEL 30 MMOL/L (20-31); CHLORIDE LEVEL 101 MMOL/L (98-107); CREATININE FOR GFR 0.74 MG/DL (0.70-1.30); GLOMERULAR FILTRATION RATE > 60.0 (>56); GLUCOSE, FASTING 73 MG/DL (60-100); POTASSIUM SERUM 4.7 MMOL/L (3.5-5.1); SODIUM LEVEL 139 MMOL/L (136-145)
== END ==
LOC: M LAB REF 16:28
PROVIDERS: ATTEND Nurse Practitioner Family
DX: Z01.818 Encounter for other preprocedural examination (principal)

== ENCOUNTER → 2023-02-22 | Outpatient (REF) | payer MEDICAID ==
[2023-02-22 20:08] LABS: BASO # 0.1 10^3/uL (0.0-0.2); BASO % 0.7 % (0.0-1.0); EOS % 0.4 % (0.0-3.0); HEMATOCRIT 38.8 % (42.0-52.0); HEMOGLOBIN 12.9 g/dl (13.5-17.5); LYMPH # 1.1 10^3/uL (1.5-5.0); LYMPH % 12.1 % (24.0-44.0); MEAN CORPUSCULAR HEMOGLOBIN 28.8 pg (27.0-33.0); MEAN CORPUSCULAR HGB CONC 33.2 g/dl (32.0-36.5); MEAN CORPUSCULAR VOLUME 86.6 fl (80.0-96.0); MONO # 0.6 10^3/uL (0.0-0.8); MONO % 6.1 % (2.0-8.0); NEUTROPHILS # 7.6 10^3/uL (1.5-8.5); NEUTROPHILS % 80.4 % (36.0-66.0); PLATELET COUNT, AUTOMATED 318 10^3/uL (150-450); RED BLOOD COUNT 4.48 10^6/uL (4.30-6.10); WHITE BLOOD COUNT 9.5 10^3/uL (4.0-10.0)
== END ==
LOC: M LAB REF 19:27
PROVIDERS: ATTEND Nurse Practitioner Family
DX: R71.0 Precipitous drop in hematocrit (principal)

== ENCOUNTER 2023-04-12 12:23 | Inpatient (IN) | payer MEDICAID ==
[2023-04-12] VITALS (29 sets, daily range): BP systolic 77–139; BP diastolic 47–97; TEMP 98–99.7; O2SAT 88–99
[~2023-04-12] VITALS: Ht 167.6 cm; Wt 91.4 kg
[2023-04-12] MEDS ORDERED: ACETAMINOPHEN 325 MG TAB PO ONE (12:40)
[2023-04-12] MEDS ORDERED: CEFEPIME HCL 2 GM in D5W MINI-BAG PLUS 50 ML IV ONE (12:40)
[2023-04-12] MEDS ORDERED: NOREPINEPHRINE 4MG IN D5 250ML 4 MG in IV 1 EA IV SCH ×4 (12:50→15:35)
[2023-04-12] MEDS ORDERED: NS 2,520 ML in IV 1 EA IV ONE (13:05)
[2023-04-12 13:16] LABS: ABG BASE EXCESS -4.2 (-2.0-2.0); ABG HCO3 18.4 MMOL/L (22.0-26.0); ABG O2 SATURATION 95.6 % (95.0-99.0); ABG PARTIAL PRESSURE CO2 27.9 mmHg (35.0-45.0); ABG PARTIAL PRESSURE O2 77.6 mmHg (75.0-100.0); ABG TOTAL CO2 19.3 MMOL/L (22.0-29.0); ABG pH (ARTERIAL) 7.437 UNITS (7.350-7.450)
[2023-04-12] MEDS ORDERED: LIDOCAINE 2% 5ML JELLY UROJET TOP ONE (13:20)
[2023-04-12 13:24] LABS: BASO # 0.1 10^3/uL (0.0-0.2); BASO % 0.5 % (0.0-1.0); EOS # 0.1 10^3/uL (0.0-0.5); EOS % 0.3 % (0.0-3.0); HEMATOCRIT 47.7 % (42.0-52.0); HEMOGLOBIN 15.7 g/dl (13.5-17.5); LYMPH # 1.4 10^3/uL (1.5-5.0); LYMPH % 6.6 % (24.0-44.0); MEAN CORPUSCULAR HEMOGLOBIN 28.2 pg (27.0-33.0); MEAN CORPUSCULAR HGB CONC 32.9 g/dl (32.0-36.5); MEAN CORPUSCULAR VOLUME 85.6 fl (80.0-96.0); MONO # 1.1 10^3/uL (0.0-0.8); MONO % 5.4 % (2.0-8.0); NEUTROPHILS # 18.2 10^3/uL (1.5-8.5); NEUTROPHILS % 86.5 % (36.0-66.0); PLATELET COUNT, AUTOMATED 429 10^3/uL (150-450); RED BLOOD COUNT 5.57 10^6/uL (4.30-6.10)
[2023-04-12 13:48] LABS: INR 1.11; PARTIAL THROMBOPLASTIN TIME 26.7 SECONDS (24.8-34.2)
[2023-04-12 13:49] LABS: CK-MB VALUE MASS < 1.0 NG/ML (<3.6)
[2023-04-12 13:50] LABS: C REACTIVE PROTEIN QUANTITATIV < 0.40 MG/DL (<1.0)
[2023-04-12 13:51] LABS: AMYLASE 440 U/L (30-118)
[2023-04-12 13:52] LABS: ALBUMIN 4.2 G/DL (3.2-5.2); ALKALINE PHOSPHATASE 108 U/L (46-116); ALT/SGPT 16 U/L (7.0-40); AST/SGOT 26 U/L (<34); BILIRUBIN,DIRECT < 0.1 MG/DL (<0.4); BILIRUBIN,TOTAL 0.3 MG/DL (0.3-1.2); BLOOD UREA NITROGEN 25 MG/DL (9-23); CALCIUM LEVEL 9.9 MG/DL (8.5-10.1); CARBON DIOXIDE LEVEL 23 MMOL/L (20-31); CHLORIDE LEVEL 104 MMOL/L (98-107); CPK CREATINE PHOSPHOKINASE 106 U/L (46-171); CREATININE FOR GFR 1.28 MG/DL (0.70-1.30); GLOMERULAR FILTRATION RATE > 60.0 (>56); GLUCOSE, FASTING 175 MG/DL (60-100); MB/CK RELATIVE INDEX 0.94 (< OR =4); POTASSIUM SERUM 4.4 MMOL/L (3.5-5.1); SODIUM LEVEL 140 MMOL/L (136-145); TOTAL PROTEIN 6.9 G/DL (5.7-8.2)
[2023-04-12] MEDS ORDERED: MED REC IN PROGRESS XX SCH (13:55)
[2023-04-12 13:58] LABS: PROCALCITONIN 0.22 ng/ml
[2023-04-12] MEDS ORDERED: HYDROCORTISONE 100MG/2ML VIAL IV ONE (14:00)
[2023-04-12] MEDS ORDERED: NS 1,000 ML IV ONE ×3 (14:35→16:05)
[2023-04-12] MEDS ORDERED: MIRALAX *UNIT DOSE* 17GM PACKET PO PRN (15:35)
[2023-04-12] MEDS ORDERED: ALBUTEROL SULFATE 2.5MG/0.5ML INH NEB SOLN NEB PRN (15:35)
[2023-04-12 16:00] LABS: APPEARANCE, URINE CLOUDY (CLEAR); BACTERIA, URINE AUTO NEGATIVE (NEGATIVE); BILIRUBIN, URINE AUTO NEGATIVE (NEGATIVE); BLOOD, URINE BLOOD 1+ (NEGATIVE); COLOR, URINE AMBER (YELLOW); GLUCOSE, URINE (UA) AUTO NEGATIVE (NEGATIVE); GRANULAR CAST, URINE AUTO 5 /LPF; KETONE, URINE AUTO TRACE mg/dL (NEGATIVE); LEUKOCYTE ESTERASE, URINE AUTO NEGATIVE (NEGATIVE); MUCUS, URINE SMALL (NEGATIVE); NITRITE, URINE AUTO NEGATIVE (NEGATIVE); PROTEIN, URINE AUTO 2+ mg/dL (NEGATIVE); RBC, URINE AUTO 9 /HPF (0-3); SPECIFIC GRAVITY URINE AUTO 1.013 (1.002-1.035); SQUAMOUS EPITHELIAL CELL UR AU 1 /HPF (0-6); WBC, URINE AUTO 9 /HPF (0-3)
[2023-04-12] MEDS ORDERED: OMEP-173 PO (16:37)
[2023-04-12] MEDS ORDERED: GABA-284 PO (16:37)
[2023-04-12] MEDS ORDERED: INVE234I IM (16:42)
[2023-04-12] MEDS ORDERED: INVE1.31 IM (16:42)
[2023-04-12] MEDS ORDERED: CETI-24 PO (16:45)
[2023-04-12] MEDS ORDERED: SIMV40TA20 PO (16:51)
[2023-04-12] MEDS ORDERED: VITA200012 PO (16:56)
[2023-04-12] MEDS ORDERED: ZYPR5TAB2 PO (16:58)
[2023-04-12] MEDS ORDERED: QUET400T2 PO (17:00)
[2023-04-12] MEDS ORDERED: NAPR500T6 PO (17:03)
[2023-04-12] MEDS ORDERED: HOME MED LIST COMPLETE! XX SCH (17:40)
[2023-04-12] MEDS: PIPERACILLIN/TAZOBACTAM SOD 4.5 GM in D5W MINI-BAG PLUS 50 ML IV SCH (19:49)
[2023-04-12] MEDS: NS 1,000 ML IV SCH (19:49)
[2023-04-13] VITALS (59 sets, daily range): BP systolic 80–117; BP diastolic 41–62; TEMP 98.6–100.8; O2SAT 92–98
[2023-04-13] MEDS: PIPERACILLIN/TAZOBACTAM SOD 4.5 GM in D5W MINI-BAG PLUS 50 ML IV SCH ×4 (01:19→19:54)
[2023-04-13] MEDS: NS 1,000 ML IV SCH ×3 (03:28→23:37)
[2023-04-13 04:53] LABS: BASO % 0.1 % (0.0-1.0); HEMATOCRIT 35.9 % (42.0-52.0); LYMPH # 0.6 10^3/uL (1.5-5.0); LYMPH % 2.9 % (24.0-44.0); MEAN CORPUSCULAR HEMOGLOBIN 28.9 pg (27.0-33.0); MEAN CORPUSCULAR VOLUME 85.1 fl (80.0-96.0); MONO # 1.1 10^3/uL (0.0-0.8); MONO % 5.5 % (2.0-8.0); NEUTROPHILS # 18.5 10^3/uL (1.5-8.5); RED BLOOD COUNT 4.22 10^6/uL (4.30-6.10); WHITE BLOOD COUNT 20.3 10^3/uL (4.0-10.0)
[2023-04-13 04:55] LABS: HEMOGLOBIN 12.2 g/dl (13.5-17.5); PLATELET COUNT, AUTOMATED 300 10^3/uL (150-450)
[2023-04-13] MEDS ORDERED: ACETAMINOPHEN TAB 650MG DOSE (2X325MG) PO ONE (07:00)
[2023-04-13 07:08] LABS: CLOSTRIDIUM DIFFICILE PCR NEGATIVE (NEGATIVE)
[2023-04-13] MEDS ORDERED: NS 1,000 ML IV ONE ×2 (07:30→09:00)
[2023-04-13] MEDS: HYDROCORTISONE 100MG/2ML VIAL IV SCH ×3 (07:53→23:37)
[2023-04-13] MEDS: OMEPRAZOLE 20MG CAP PO SCH (08:35)
[2023-04-13] MEDS: ENOXAPARIN 40MG/0.4ML SYRINGE (J1650 PER 10MG) SC SCH (08:35)
[2023-04-13] MEDS: MIRALAX *UNIT DOSE* 17GM PACKET PO SCH ×2 (08:35→20:28)
[2023-04-13] MEDS ORDERED: VASOPRESSIN INJ 20 UNITS in NS 499 ML IV SCH (09:00)
[2023-04-13 16:55] LABS: HEMATOCRIT 31.8 % (42.0-52.0); HEMOGLOBIN 10.4 g/dl (13.5-17.5); MEAN CORPUSCULAR HEMOGLOBIN 28.9 pg (27.0-33.0); MEAN CORPUSCULAR HGB CONC 32.7 g/dl (32.0-36.5); MEAN CORPUSCULAR VOLUME 88.3 fl (80.0-96.0); PLATELET COUNT, AUTOMATED 205 10^3/uL (150-450); WHITE BLOOD COUNT 13.5 10^3/uL (4.0-10.0)
[2023-04-13 17:21] LABS: ALBUMIN 2.3 G/DL (3.2-5.2); ALKALINE PHOSPHATASE 46 U/L (46-116); ALT/SGPT 12 U/L (7.0-40); AST/SGOT 18 U/L (<34); BILIRUBIN,TOTAL 0.4 MG/DL (0.3-1.2); BLOOD UREA NITROGEN 23 MG/DL (9-23); CALCIUM LEVEL 6.1 MG/DL (8.5-10.1); CARBON DIOXIDE LEVEL 17 MMOL/L (20-31); CHLORIDE LEVEL 121 MMOL/L (98-107); CREATININE FOR GFR 0.72 MG/DL (0.70-1.30); GLOMERULAR FILTRATION RATE > 60.0 (>56); GLUCOSE, FASTING 100 MG/DL (60-100); POTASSIUM SERUM 3.8 MMOL/L (3.5-5.1); SODIUM LEVEL 145 MMOL/L (136-145)
[2023-04-13] MEDS: KETOROLAC 30 MG/ML 1ML VIAL IV PRN (19:54)
[2023-04-14] VITALS (7 sets, daily range): BP systolic 95–124; BP diastolic 55–70; TEMP 97.6–100; O2SAT 95–97
[2023-04-14] MEDS: PIPERACILLIN/TAZOBACTAM SOD 4.5 GM in D5W MINI-BAG PLUS 50 ML IV SCH ×4 (01:48→21:26)
[2023-04-14] MEDS ORDERED: SIMETHICONE 80MG CHEW TAB PO ONE (02:00)
[2023-04-14 04:48] LABS: BASO % 0.2 % (0.0-1.0); HEMATOCRIT 32.1 % (42.0-52.0); HEMOGLOBIN 10.6 g/dl (13.5-17.5); LYMPH # 0.7 10^3/uL (1.5-5.0); LYMPH % 5.4 % (24.0-44.0); MEAN CORPUSCULAR HEMOGLOBIN 28.4 pg (27.0-33.0); MEAN CORPUSCULAR VOLUME 86.1 fl (80.0-96.0); MONO # 0.7 10^3/uL (0.0-0.8); MONO % 5.3 % (2.0-8.0); NEUTROPHILS # 11.3 10^3/uL (1.5-8.5); NEUTROPHILS % 88.3 % (36.0-66.0); PLATELET COUNT, AUTOMATED 231 10^3/uL (150-450); RED BLOOD COUNT 3.73 10^6/uL (4.30-6.10); WHITE BLOOD COUNT 12.8 10^3/uL (4.0-10.0)
[2023-04-14 05:15] LABS: ALBUMIN 2.6 G/DL (3.2-5.2); ALKALINE PHOSPHATASE 53 U/L (46-116); ALT/SGPT 14 U/L (7.0-40); AST/SGOT 18 U/L (<34); BILIRUBIN,TOTAL 0.6 MG/DL (0.3-1.2); BLOOD UREA NITROGEN 24 MG/DL (9-23); CALCIUM LEVEL 7.9 MG/DL (8.5-10.1); CARBON DIOXIDE LEVEL 23 MMOL/L (20-31); CHLORIDE LEVEL 114 MMOL/L (98-107); CREATININE FOR GFR 0.87 MG/DL (0.70-1.30); GLOMERULAR FILTRATION RATE > 60.0 (>56); GLUCOSE, FASTING 100 MG/DL (60-100); MAGNESIUM LEVEL 1.6 MG/DL (1.8-2.4); POTASSIUM SERUM 3.7 MMOL/L (3.5-5.1); SODIUM LEVEL 143 MMOL/L (136-145); TOTAL PROTEIN 4.6 G/DL (5.7-8.2)
[2023-04-14] MEDS ORDERED: MAG SULF 1GM/100ML (MAG RUN) 1 GM in IV 1 EA IV ONE ×2 (07:00→08:00)
[2023-04-14] MEDS: MIRALAX *UNIT DOSE* 17GM PACKET PO SCH ×2 (08:09→21:26)
[2023-04-14] MEDS: HYDROCORTISONE 100MG/2ML VIAL IV SCH ×2 (08:09→16:29)
[2023-04-14] MEDS: OMEPRAZOLE 20MG CAP PO SCH (08:09)
[2023-04-14] MEDS: ENOXAPARIN 40MG/0.4ML SYRINGE (J1650 PER 10MG) SC SCH (08:10)
[2023-04-14] MEDS: NS 1,000 ML IV SCH ×2 (11:04→21:26)
[2023-04-14] MEDS: KETOROLAC 30 MG/ML 1ML VIAL IV PRN (17:01)
[2023-04-15] MEDS: PIPERACILLIN/TAZOBACTAM SOD 4.5 GM in D5W MINI-BAG PLUS 50 ML IV SCH ×4 (01:26→20:03)
[2023-04-15] MEDS: HYDROCORTISONE 100MG/2ML VIAL IV SCH ×4 (01:26→23:11)
[2023-04-15 01:55] VITALS: BP 117/69; TEMP 97.7; O2SAT 95
[2023-04-15 05:53] VITALS: BP 118/69; TEMP 97.9; O2SAT 94
[2023-04-15 06:49] LABS: HEMATOCRIT 30.4 % (42.0-52.0); HEMOGLOBIN 10.3 g/dl (13.5-17.5); MEAN CORPUSCULAR HEMOGLOBIN 28.5 pg (27.0-33.0); MEAN CORPUSCULAR HGB CONC 33.9 g/dl (32.0-36.5); PLATELET COUNT, AUTOMATED 252 10^3/uL (150-450); RED BLOOD COUNT 3.62 10^6/uL (4.30-6.10); WHITE BLOOD COUNT 10.6 10^3/uL (4.0-10.0)
[2023-04-15] MEDS: MIRALAX *UNIT DOSE* 17GM PACKET PO SCH ×2 (09:43→20:03)
[2023-04-15] MEDS: OMEPRAZOLE 20MG CAP PO SCH (09:43)
[2023-04-15] MEDS: ENOXAPARIN 40MG/0.4ML SYRINGE (J1650 PER 10MG) SC SCH (09:43)
[2023-04-15] MEDS: NS 1,000 ML IV SCH ×2 (12:51→16:05)
[2023-04-15 13:24] LABS: BLOOD UREA NITROGEN 15 MG/DL (9-23); CALCIUM LEVEL 8.2 MG/DL (8.5-10.1); CARBON DIOXIDE LEVEL 24 MMOL/L (20-31); CHLORIDE LEVEL 110 MMOL/L (98-107); CREATININE FOR GFR 0.57 MG/DL (0.70-1.30); GLOMERULAR FILTRATION RATE > 60.0 (>56); GLUCOSE, FASTING 120 MG/DL (60-100); MAGNESIUM LEVEL 1.6 MG/DL (1.8-2.4); POTASSIUM SERUM 3.8 MMOL/L (3.5-5.1); SODIUM LEVEL 141 MMOL/L (136-145)
[2023-04-15 14:00] VITALS: BP 120/68; TEMP 97.5; O2SAT 97
[2023-04-15 20:08] VITALS: BP 117/65; TEMP 98.1; O2SAT 95
[2023-04-15 23:22] VITALS: O2SAT 97
[2023-04-16] VITALS (7 sets, daily range): BP systolic 101–116; BP diastolic 52–65; TEMP 97.2; O2SAT 39–97
[2023-04-16] MEDS: PIPERACILLIN/TAZOBACTAM SOD 4.5 GM in D5W MINI-BAG PLUS 50 ML IV SCH ×4 (01:49→20:53)
[2023-04-16] MEDS: NS 1,000 ML IV SCH (01:51)
[2023-04-16 06:05] LABS: BASO % 0.3 % (0.0-1.0); EOS % 0.3 % (0.0-3.0); HEMATOCRIT 29.4 % (42.0-52.0); HEMOGLOBIN 9.9 g/dl (13.5-17.5); LYMPH % 9.5 % (24.0-44.0); MEAN CORPUSCULAR HEMOGLOBIN 28.5 pg (27.0-33.0); MEAN CORPUSCULAR HGB CONC 33.7 g/dl (32.0-36.5); MEAN CORPUSCULAR VOLUME 84.7 fl (80.0-96.0); MONO # 0.6 10^3/uL (0.0-0.8); MONO % 6.4 % (2.0-8.0); NEUTROPHILS # 8.3 10^3/uL (1.5-8.5); PLATELET COUNT, AUTOMATED 272 10^3/uL (150-450); RED BLOOD COUNT 3.47 10^6/uL (4.30-6.10)
[2023-04-16 06:33] LABS: BLOOD UREA NITROGEN 13 MG/DL (9-23); CALCIUM LEVEL 8.3 MG/DL (8.5-10.1); CARBON DIOXIDE LEVEL 23 MMOL/L (20-31); CHLORIDE LEVEL 114 MMOL/L (98-107); GLOMERULAR FILTRATION RATE > 60.0 (>56); GLUCOSE, FASTING 114 MG/DL (60-100); MAGNESIUM LEVEL 1.6 MG/DL (1.8-2.4); POTASSIUM SERUM 3.5 MMOL/L (3.5-5.1); SODIUM LEVEL 144 MMOL/L (136-145)
[2023-04-16] MEDS: SENOKOT S TAB PO SCH ×2 (09:00→21:00)
[2023-04-16] MEDS: HYDROCORTISONE 100MG/2ML VIAL IV SCH ×2 (09:17→20:55)
[2023-04-16] MEDS: MIRALAX *UNIT DOSE* 17GM PACKET PO SCH ×2 (09:17→21:00)
[2023-04-16] MEDS: ENOXAPARIN 40MG/0.4ML SYRINGE (J1650 PER 10MG) SC SCH (09:17)
[2023-04-16] MEDS: OMEPRAZOLE 20MG CAP PO SCH (09:17)
[2023-04-16] MEDS: ASPIRIN 81MG ENTERIC TABLET PO SCH (14:54)
[2023-04-16] MEDS: SIMVASTATIN 40 MG TAB PO SCH (14:55)
[2023-04-16] MEDS: CETIRIZINE (ZyrTEC) 10 MG TAB PO SCH (14:55)
[2023-04-16] MEDS: MULTIVITAMINS/MINERALS THERAP 1 TAB PO SCH (14:55)
[2023-04-16] MEDS: OLANZapine 5 MG TAB PO SCH (14:57)
[2023-04-16] MEDS: MAG SULF 1GM/100ML (MAG RUN) 1 GM in IV 1 EA IV SCH ×2 (16:02→17:25)
[2023-04-16 16:56] LABS: TOTAL IRON BINDING CAPACITY 216 UG/DL (250-425)
[2023-04-16 16:59] LABS: FERRITIN 114.6 NG/ML (10.5-307.3); FOLATE 7.41 NG/ML (>5.4); VITAMIN B12 LEVEL 353 PG/ML (211-911)
[2023-04-16] MEDS ORDERED: MAG SULF 1GM/100ML (MAG RUN) 1 GM in IV 1 EA IV SCH (17:25)
[2023-04-16] MEDS: SERTRALINE 100 MG TAB PO SCH (20:53)
[2023-04-16] MEDS: QUEtiapine FUMARATE 200 MG TAB PO SCH (20:53)
[2023-04-17] MEDS: PIPERACILLIN/TAZOBACTAM SOD 4.5 GM in D5W MINI-BAG PLUS 50 ML IV SCH ×4 (02:44→20:36)
[2023-04-17 06:00] VITALS: BP 121/69; TEMP 97.3; O2SAT 94
[2023-04-17 06:01] LABS: BASO # 0.1 10^3/uL (0.0-0.2); BASO % 0.7 % (0.0-1.0); EOS # 0.1 10^3/uL (0.0-0.5); EOS % 1.4 % (0.0-3.0); HEMOGLOBIN 9.7 g/dl (13.5-17.5); LYMPH # 1.7 10^3/uL (1.5-5.0); LYMPH % 19.1 % (24.0-44.0); MEAN CORPUSCULAR HEMOGLOBIN 28.3 pg (27.0-33.0); MEAN CORPUSCULAR HGB CONC 33.4 g/dl (32.0-36.5); MEAN CORPUSCULAR VOLUME 84.5 fl (80.0-96.0); MONO # 0.6 10^3/uL (0.0-0.8); MONO % 6.7 % (2.0-8.0); NEUTROPHILS # 6.4 10^3/uL (1.5-8.5); NEUTROPHILS % 70.3 % (36.0-66.0); PLATELET COUNT, AUTOMATED 243 10^3/uL (150-450); RED BLOOD COUNT 3.43 10^6/uL (4.30-6.10); WHITE BLOOD COUNT 9.1 10^3/uL (4.0-10.0)
[2023-04-17 06:25] LABS: BLOOD UREA NITROGEN 13 MG/DL (9-23); CALCIUM LEVEL 8.1 MG/DL (8.5-10.1); CARBON DIOXIDE LEVEL 24 MMOL/L (20-31); CHLORIDE LEVEL 115 MMOL/L (98-107); CREATININE FOR GFR 0.58 MG/DL (0.70-1.30); GLOMERULAR FILTRATION RATE > 60.0 (>56); GLUCOSE, FASTING 92 MG/DL (60-100); MAGNESIUM LEVEL 1.7 MG/DL (1.8-2.4); POTASSIUM SERUM 3.4 MMOL/L (3.5-5.1); SODIUM LEVEL 147 MMOL/L (136-145)
[2023-04-17] MEDS: D5W 1,000 ML IV SCH ×2 (08:35→20:37)
[2023-04-17] MEDS: ASPIRIN 81MG ENTERIC TABLET PO SCH (08:39)
[2023-04-17] MEDS: CETIRIZINE (ZyrTEC) 10 MG TAB PO SCH (08:40)
[2023-04-17] MEDS: OLANZapine 5 MG TAB PO SCH (08:40)
[2023-04-17] MEDS: MULTIVITAMINS/MINERALS THERAP 1 TAB PO SCH (08:40)
[2023-04-17] MEDS: OMEPRAZOLE 20MG CAP PO SCH (08:40)
[2023-04-17] MEDS: SIMVASTATIN 40 MG TAB PO SCH (08:40)
[2023-04-17] MEDS: ENOXAPARIN 40MG/0.4ML SYRINGE (J1650 PER 10MG) SC SCH (08:41)
[2023-04-17] MEDS: HYDROCORTISONE 100MG/2ML VIAL IV SCH (08:51)
[2023-04-17] MEDS ORDERED: POTASSIUM CHLORIDE 10MEQ SR TABLET PO ONE ×2 (09:00→16:50)
[2023-04-17] MEDS: MAG SULF 1GM/100ML (MAG RUN) 1 GM in IV 1 EA IV SCH ×2 (10:31→11:41)
[2023-04-17 14:00] VITALS: BP 110/58; TEMP 97.3; O2SAT 97
[2023-04-17 15:43] LABS: BLOOD UREA NITROGEN 13 MG/DL (9-23); CARBON DIOXIDE LEVEL 27 MMOL/L (20-31); CHLORIDE LEVEL 111 MMOL/L (98-107); CREATININE FOR GFR 0.68 MG/DL (0.70-1.30); GLOMERULAR FILTRATION RATE > 60.0 (>56); GLUCOSE, FASTING 114 MG/DL (60-100); POTASSIUM SERUM 3.4 MMOL/L (3.5-5.1); SODIUM LEVEL 144 MMOL/L (136-145)
[2023-04-17 17:08] LABS: IRON (FE) 41 UG/DL (65-175)
[2023-04-17 20:00] VITALS: BP 125/60; TEMP 97; O2SAT 97
[2023-04-17] MEDS: QUEtiapine FUMARATE 200 MG TAB PO SCH (20:35)
[2023-04-17] MEDS: SERTRALINE 100 MG TAB PO SCH (20:35)
[2023-04-18] MEDS: PIPERACILLIN/TAZOBACTAM SOD 4.5 GM in D5W MINI-BAG PLUS 50 ML IV SCH (02:20)
[2023-04-18 06:00] VITALS: BP 121/74; TEMP 98.1; O2SAT 95
[2023-04-18 06:22] LABS: HEMATOCRIT 29.4 % (42.0-52.0); HEMOGLOBIN 9.8 g/dl (13.5-17.5); MEAN CORPUSCULAR HEMOGLOBIN 28.3 pg (27.0-33.0); MEAN CORPUSCULAR HGB CONC 33.3 g/dl (32.0-36.5); RED BLOOD COUNT 3.46 10^6/uL (4.30-6.10); WHITE BLOOD COUNT 9.2 10^3/uL (4.0-10.0)
[2023-04-18 06:26] LABS: BLOOD UREA NITROGEN 11 MG/DL (9-23); CALCIUM LEVEL 7.6 MG/DL (8.5-10.1); CARBON DIOXIDE LEVEL 24 MMOL/L (20-31); CHLORIDE LEVEL 116 MMOL/L (98-107); CREATININE FOR GFR 0.72 MG/DL (0.70-1.30); GLOMERULAR FILTRATION RATE > 60.0 (>56); GLUCOSE, FASTING 100 MG/DL (60-100); MAGNESIUM LEVEL 1.6 MG/DL (1.8-2.4); POTASSIUM SERUM 3.4 MMOL/L (3.5-5.1); SODIUM LEVEL 147 MMOL/L (136-145)
[2023-04-18 06:53] LABS: PLATELET COUNT, AUTOMATED 260 10^3/uL (150-450)
[2023-04-18 07:03] LABS: ATYPICAL LYMPH 1 % (0-5); EOSINOPHILS 1 % (0-3); LYMPHOCYTES 13 % (16-44); METAMYELOCYTES 3 % (0-0); MONOCYTES 9 % (0-5); NEUTROPHILS 69 % (28-66)
[2023-04-18 07:04] LABS: ANISOCYTOSIS 1+; PLATELET ESTIMATE NORMAL (NORMAL)
[2023-04-18] MEDS ORDERED: MAG SULF 1GM/100ML (MAG RUN) 1 GM in IV 1 EA IV SCH (08:00)
[2023-04-18] MEDS: D5W 1,000 ML IV SCH ×2 (08:26→15:39)
[2023-04-18] MEDS: KCL 10MEQ/100ML SWI (KRUN) 10 MEQ in IV 1 EA IV SCH ×4 (08:27→11:27)
[2023-04-18] MEDS ORDERED: POTASSIUM CHLORIDE 10MEQ SR TABLET PO ONE (09:00)
[2023-04-18] MEDS: OLANZapine 5 MG TAB PO SCH (10:21)
[2023-04-18] MEDS: ENOXAPARIN 40MG/0.4ML SYRINGE (J1650 PER 10MG) SC SCH (10:21)
[2023-04-18] MEDS: MULTIVITAMINS/MINERALS THERAP 1 TAB PO SCH (10:21)
[2023-04-18] MEDS: CETIRIZINE (ZyrTEC) 10 MG TAB PO SCH (10:21)
[2023-04-18] MEDS: ASPIRIN 81MG ENTERIC TABLET PO SCH (10:21)
[2023-04-18] MEDS: OMEPRAZOLE 20MG CAP PO SCH (10:22)
[2023-04-18] MEDS: LACTOBACILLUS ACIDOPHILUS CAP (BACID) PO SCH ×2 (10:24→17:44)
[2023-04-18] MEDS: SIMVASTATIN 40 MG TAB PO SCH (10:24)
[2023-04-18] MEDS: CIPROFLOXACIN 500MG TABLET PO SCH ×2 (11:54→17:44)
[2023-04-18] MEDS: MAG SULF 1GM/100ML (MAG RUN) 1 GM in IV 1 EA IV SCH ×4 (12:36→16:43)
[2023-04-18 14:00] VITALS: BP 117/73; TEMP 97.7; O2SAT 98
[2023-04-18] MEDS ORDERED: metroNIDAZOLE (FLAGYL) 500MG TABLET PO SCH (14:00)
[2023-04-18 15:39] LABS: BLOOD UREA NITROGEN 9 MG/DL (9-23); CALCIUM LEVEL 7.9 MG/DL (8.5-10.1); CARBON DIOXIDE LEVEL 23 MMOL/L (20-31); CHLORIDE LEVEL 113 MMOL/L (98-107); CREATININE FOR GFR 0.66 MG/DL (0.70-1.30); GLOMERULAR FILTRATION RATE > 60.0 (>56); GLUCOSE, FASTING 105 MG/DL (60-100); POTASSIUM SERUM 4.4 MMOL/L (3.5-5.1); SODIUM LEVEL 143 MMOL/L (136-145)
[2023-04-18] MEDS ORDERED: RISATAB3 PO (16:02)
[2023-04-18] MEDS ORDERED: METR-265 PO (16:02)
[2023-04-18] MEDS ORDERED: CIPR500T39 PO (16:02)
[2023-04-18] MEDS ORDERED: MAGN400T2 PO (16:09)
== END 2023-04-18 17:54 | disposition home or self-care (01) | DRG 720 ==
LOC: M ED 12:23 → M ED INP 15:35 → ENRESERV 15:47 → M ICU 16:57 → M MSPAV 04-14 16:43
PROVIDERS: ADMIT Internal Medicine Critical Care Medicine; ATTEND Internal Medicine
DX: A41.9 Sepsis, unspecified organism (principal); R65.21 Severe sepsis with septic shock; K56.7 Ileus, unspecified; E87.0 Hyperosmolality and hypernatremia; K56.49 Other impaction of intestine; E83.42 Hypomagnesemia; F20.0 Paranoid schizophrenia; R13.12 Dysphagia, oropharyngeal phase; K52.9 Noninfective gastroenteritis and colitis, unspecified; D64.9 Anemia, unspecified; E87.6 Hypokalemia; F32.A Depression, unspecified; E78.5 Hyperlipidemia, unspecified; F31.9 Bipolar disorder, unspecified; F71 Moderate intellectual disabilities; Z91.51 Personal history of suicidal behavior; Z79.82 Long term (current) use of aspirin; Z79.899 Other long term (current) drug therapy

== ENCOUNTER → 2023-04-18 | Outpatient (CLI) | payer MEDICAID ==
[~2023-04-18] MED LIST changes: +BUDE3CAP5 PO; +CETI-24 PO; +CIPR500T39 PO; +COLA100C5 PO; +DOCU100C16 PO; +FERR325T3 PO; +FERR325T81 PO; +GABA-284 PO; +INVE234I IM; +LASI40TA9 PO; +MAGN400T2 PO; +MESA50SU PR; +METR-265 PO; +NAPR500T6 PO; +OMEP-173 PO; +PRED50TA PO; +RISATAB3 PO; +SUCR1TA PO; +VITA200012 PO; +ZYPR5TAB2 PO; +ZYPR5TAB31
== END ==
LOC: M EKG 18:01
PROVIDERS: ATTEND Internal Medicine
DX: R00.1 Bradycardia, unspecified (principal); I47.19 Other supraventricular tachycardia

== ENCOUNTER 2023-04-20 12:14 | Inpatient (IN) | payer MEDICAID ==
[~2023-04-20] VITALS: Ht 175.3 cm; Wt 90.7 kg
[~2023-04-20 12:14] MED LIST changes: -BUDE3CAP5 PO; -COLA100C5 PO; -DOCU100C16 PO; -FERR325T3 PO; -FERR325T81 PO; -LASI40TA9 PO; -MESA50SU PR; -PRED50TA PO; -SUCR1TA PO; -ZYPR5TAB31
[2023-04-20 14:59] LABS: HEMOGLOBIN 9.6 g/dl (13.5-17.5); MEAN CORPUSCULAR HEMOGLOBIN 28.4 pg (27.0-33.0); MEAN CORPUSCULAR HGB CONC 33.1 g/dl (32.0-36.5); MEAN CORPUSCULAR VOLUME 85.8 fl (80.0-96.0); PLATELET COUNT, AUTOMATED 335 10^3/uL (150-450); RED BLOOD COUNT 3.38 10^6/uL (4.30-6.10); WHITE BLOOD COUNT 8.6 10^3/uL (4.0-10.0)
[2023-04-20 15:20] LABS: INR 1.16; PROTHROMBIN TIME 14.4 SECONDS (12.5-14.5)
[2023-04-20 15:21] LABS: ALBUMIN 2.7 G/DL (3.2-5.2); ALKALINE PHOSPHATASE 63 U/L (46-116); ALT/SGPT 29 U/L (7.0-40); AST/SGOT 38 U/L (<34); BILIRUBIN,DIRECT < 0.1 MG/DL (<0.4); BILIRUBIN,TOTAL 0.2 MG/DL (0.3-1.2); BLOOD UREA NITROGEN 7 MG/DL (9-23); CARBON DIOXIDE LEVEL 29 MMOL/L (20-31); CHLORIDE LEVEL 109 MMOL/L (98-107); CK-MB VALUE MASS < 1.0 NG/ML (<3.6); CPK CREATINE PHOSPHOKINASE 81 U/L (46-171); CREATININE FOR GFR 0.77 MG/DL (0.70-1.30); FREE T4 1.08 NG/DL (0.89-1.76); GLOMERULAR FILTRATION RATE > 60.0 (>56); GLUCOSE, FASTING 80 MG/DL (60-100); MB/CK RELATIVE INDEX 1.23 (< OR =4); PARTIAL THROMBOPLASTIN TIME 28.2 SECONDS (24.8-34.2); POTASSIUM SERUM 4.8 MMOL/L (3.5-5.1); SODIUM LEVEL 142 MMOL/L (136-145); THYROID STIMULATING HORMONE 0.412 uIU/ML (0.55-4.78); TOTAL PROTEIN 5.3 G/DL (5.7-8.2)
[2023-04-20 15:47] LABS: ATYPICAL LYMPH 4 % (0-5); BASOPHILS 2 % (0-1); LYMPHOCYTES 17 % (16-44); METAMYELOCYTES 2 % (0-0); MONOCYTES 9 % (0-5); MYELOCYTES 1 % (0-0); NEUTROPHILS 63 % (28-66); PLATELET ESTIMATE NORMAL (NORMAL)
[2023-04-20] MEDS ORDERED: OLANZapine 5 MG TAB PO SCH (16:00)
[2023-04-20] MEDS ORDERED: FUROSEMIDE 40MG/4ML VIAL IV ONE (16:45)
[2023-04-20 16:46] LABS: CK-MB VALUE MASS < 1.0 NG/ML (<3.6)
[2023-04-20 16:51] LABS: CPK CREATINE PHOSPHOKINASE 46 U/L (46-171); MB/CK RELATIVE INDEX 2.17 (< OR =4)
[2023-04-20] MEDS ORDERED: METR-265 PO (17:00)
[2023-04-20] MEDS ORDERED: RISATAB3 PO (17:00)
[2023-04-20] MEDS ORDERED: CIPR500T39 PO (17:00)
[2023-04-20] MEDS ORDERED: MAGN400T2 PO (17:00)
[2023-04-20] MEDS ORDERED: HOME MED LIST COMPLETE! XX SCH (17:05)
[2023-04-20] MEDS ORDERED: GABAPENTIN 400MG CAP PO SCH (21:00)
[2023-04-20] MEDS ORDERED: SERTRALINE HCL 50 MG TAB PO SCH (21:00)
[2023-04-20] MEDS ORDERED: SERTRALINE 100 MG TAB PO SCH (21:00)
[2023-04-20] MEDS ORDERED: QUEtiapine FUMARATE 200 MG TAB PO SCH (21:00)
[2023-04-20] MEDS: OMEPRAZOLE 20MG CAP PO SCH (21:33)
[2023-04-20] MEDS: CIPROFLOXACIN 500MG TABLET PO SCH (21:34)
[2023-04-20] MEDS: SUCRALFATE SUSP 1GM/10ML UD PO SCH (21:34)
[2023-04-20] MEDS: metroNIDAZOLE (FLAGYL) 500MG TABLET PO SCH (21:34)
[2023-04-20 23:30] VITALS: BP 107/57; TEMP 98.2; O2SAT 92
[2023-04-21 03:15] VITALS: BP 123/66; TEMP 98.3; O2SAT 90
[2023-04-21] MEDS: CIPROFLOXACIN 500MG TABLET PO SCH (05:56)
[2023-04-21] MEDS: metroNIDAZOLE (FLAGYL) 500MG TABLET PO SCH ×2 (05:56→13:32)
[2023-04-21 06:46] LABS: HEMATOCRIT 28.6 % (42.0-52.0); HEMOGLOBIN 9.5 g/dl (13.5-17.5); MEAN CORPUSCULAR HEMOGLOBIN 28.6 pg (27.0-33.0); MEAN CORPUSCULAR HGB CONC 33.2 g/dl (32.0-36.5); MEAN CORPUSCULAR VOLUME 86.1 fl (80.0-96.0); RED BLOOD COUNT 3.32 10^6/uL (4.30-6.10); WHITE BLOOD COUNT 8.6 10^3/uL (4.0-10.0)
[2023-04-21 07:15] LABS: PERCENT SATURATION 15.9 % (19.7-50.0)
[2023-04-21 07:19] LABS: FOLATE 15.9 NG/ML (>5.4)
[2023-04-21 07:20] LABS: BLOOD UREA NITROGEN 7 MG/DL (9-23); CALCIUM LEVEL 8.3 MG/DL (8.5-10.1); CARBON DIOXIDE LEVEL 32 MMOL/L (20-31); CHLORIDE LEVEL 108 MMOL/L (98-107); CREATININE FOR GFR 0.76 MG/DL (0.70-1.30); GLOMERULAR FILTRATION RATE > 60.0 (>56); GLUCOSE, FASTING 77 MG/DL (60-100); POTASSIUM SERUM 3.8 MMOL/L (3.5-5.1); SODIUM LEVEL 147 MMOL/L (136-145)
[2023-04-21 07:40] LABS: EOSINOPHILS 5 % (0-3); LYMPHOCYTES 23 % (16-44); METAMYELOCYTES 3 % (0-0); MONOCYTES 6 % (0-5); NEUTROPHILS 61 % (28-66); PLATELET ESTIMATE INVALID (NORMAL)
[2023-04-21 08:00] VITALS: BP 130/60; TEMP 97.4; O2SAT 91
[2023-04-21] MEDS ORDERED: CETIRIZINE (ZyrTEC) 10 MG TAB PO SCH (09:00)
[2023-04-21] MEDS ORDERED: ENOXAPARIN 40MG/0.4ML SYRINGE (J1650 PER 10MG) SC SCH (09:00)
[2023-04-21] MEDS ORDERED: OMEPRAZOLE 20MG CAP PO SCH (09:00)
[2023-04-21] MEDS ORDERED: SIMVASTATIN 40 MG TAB PO SCH (09:00)
[2023-04-21] MEDS ORDERED: ASPIRIN 81MG ENTERIC TABLET PO SCH (09:00)
[2023-04-21] MEDS ORDERED: FUROSEMIDE 40MG/4ML VIAL IV SCH (09:00)
[2023-04-21] MEDS ORDERED: MAGNESIUM OXIDE 400MG TAB (MAG-OX) PO SCH (09:00)
[2023-04-21] MEDS ORDERED: LASI40TA9 PO (09:05)
[2023-04-21] MEDS ORDERED: COLA100C5 PO (09:05)
[2023-04-21] MEDS ORDERED: FERR325T3 PO (09:05)
[2023-04-21] MEDS: SUCRALFATE SUSP 1GM/10ML UD PO SCH (10:00)
[2023-04-21] MEDS: OMEPRAZOLE 20MG CAP PO SCH (10:01)
[2023-04-21] MEDS ORDERED: TORSEMIDE 20 MG TAB PO ONE (12:00)
[2023-04-21 12:36] VITALS: O2SAT 92
[2023-04-24] MEDS ORDERED: ZYPR5TAB31 (08:22)
[2023-04-24] MEDS ORDERED: DOCU100C16 PO (12:55)
[2023-04-24] MEDS ORDERED: FERR325T81 PO (12:55)
== END 2023-04-21 13:38 | disposition home or self-care (01) | DRG 194 ==
LOC: M ED 12:14 → M ED INP 17:05 → M PCU 23:23
PROVIDERS: ADMIT Internal Medicine Nephrology; ATTEND Internal Medicine Nephrology
PROC: B246ZZZ Ultrasonography of Right and Left Heart (ICD-10-PCS; principal; 2023-04-21)
DX: I11.0 Hypertensive heart disease with heart failure (principal); J90 Pleural effusion, not elsewhere classified; F20.0 Paranoid schizophrenia; F25.0 Schizoaffective disorder, bipolar type; R13.12 Dysphagia, oropharyngeal phase; F71 Moderate intellectual disabilities; E87.70 Fluid overload, unspecified; G24.01 Drug induced subacute dyskinesia; E78.5 Hyperlipidemia, unspecified; K21.9 Gastro-esophageal reflux disease without esophagitis; R09.02 Hypoxemia; J98.11 Atelectasis; D50.9 Iron deficiency anemia, unspecified; K52.9 Noninfective gastroenteritis and colitis, unspecified; Z91.51 Personal history of suicidal behavior; M10.9 Gout, unspecified; E66.9 Obesity, unspecified; M54.9 Dorsalgia, unspecified; F17.200 Nicotine dependence, unspecified, uncomplicated; Z79.82 Long term (current) use of aspirin; Z79.899 Other long term (current) drug therapy; Z20.822 Contact with and (suspected) exposure to COVID-19; I50.9 Heart failure, unspecified

== ENCOUNTER → 2023-05-15 | Outpatient (CLI) | payer MEDICAID ==
[~2023-05-15] MED LIST changes: +BUDE3CAP5 PO; +COLA100C5 PO; +DOCU100C16 PO; +FERR325T3 PO; +FERR325T81 PO; +LASI40TA9 PO; +MESA50SU PR; +PRED50TA PO; +SUCR1TA PO; +ZYPR5TAB31
[2023-05-15 11:30] LABS: BASO % 0.5 % (0.0-1.0); EOS % 0.5 % (0.0-3.0); HEMATOCRIT 32.6 % (42.0-52.0); HEMOGLOBIN 10.6 g/dl (13.5-17.5); LYMPH # 0.9 10^3/uL (1.5-5.0); LYMPH % 10.7 % (24.0-44.0); MEAN CORPUSCULAR HEMOGLOBIN 30.9 pg (27.0-33.0); MEAN CORPUSCULAR HGB CONC 32.5 g/dl (32.0-36.5); MONO # 0.4 10^3/uL (0.0-0.8); MONO % 4.8 % (2.0-8.0); NEUTROPHILS # 6.6 10^3/uL (1.5-8.5); NEUTROPHILS % 81.8 % (36.0-66.0); PLATELET COUNT, AUTOMATED 294 10^3/uL (150-450); RED BLOOD COUNT 3.43 10^6/uL (4.30-6.10); WHITE BLOOD COUNT 8.1 10^3/uL (4.0-10.0)
[2023-05-15 12:00] LABS: ALBUMIN 3.3 G/DL (3.2-5.2); ALKALINE PHOSPHATASE 78 U/L (46-116); ALT/SGPT 21 U/L (7.0-40); AST/SGOT 14 U/L (<34); BILIRUBIN,TOTAL 0.2 MG/DL (0.3-1.2); BLOOD UREA NITROGEN 9 MG/DL (9-23); CALCIUM LEVEL 9.1 MG/DL (8.5-10.1); CARBON DIOXIDE LEVEL 33 MMOL/L (20-31); CHLORIDE LEVEL 109 MMOL/L (98-107); CREATININE FOR GFR 0.85 MG/DL (0.70-1.30); GLOMERULAR FILTRATION RATE > 60.0 (>56); GLUCOSE, FASTING 87 MG/DL (60-100); MAGNESIUM LEVEL 1.8 MG/DL (1.8-2.4); POTASSIUM SERUM 4.3 MMOL/L (3.5-5.1); SODIUM LEVEL 143 MMOL/L (136-145); TOTAL PROTEIN 5.6 G/DL (5.7-8.2)
[2023-05-15 12:02] LABS: THYROID STIMULATING HORMONE 0.379 uIU/ML (0.55-4.78)
== END ==
LOC: M LAB 10:54
PROVIDERS: ATTEND Nurse Practitioner Family
DX: R53.83 Other fatigue (principal)

== ENCOUNTER → 2023-06-10 | Outpatient (REF) | payer MEDICAID ==
[2023-06-10 17:35] LABS: BASO % 0.5 % (0.0-1.0); HEMATOCRIT 38.6 % (42.0-52.0); HEMOGLOBIN 12.9 g/dl (13.5-17.5); LYMPH # 0.6 10^3/uL (1.5-5.0); LYMPH % 7.1 % (24.0-44.0); MEAN CORPUSCULAR HEMOGLOBIN 31.6 pg (27.0-33.0); MEAN CORPUSCULAR HGB CONC 33.4 g/dl (32.0-36.5); MEAN CORPUSCULAR VOLUME 94.6 fl (80.0-96.0); MONO # 0.3 10^3/uL (0.0-0.8); MONO % 3.5 % (2.0-8.0); NEUTROPHILS # 7.5 10^3/uL (1.5-8.5); PLATELET COUNT, AUTOMATED 356 10^3/uL (150-450); RED BLOOD COUNT 4.08 10^6/uL (4.30-6.10); WHITE BLOOD COUNT 8.5 10^3/uL (4.0-10.0)
[2023-06-10 18:03] LABS: THYROID STIMULATING HORMONE 0.136 uIU/ML (0.55-4.78)
[2023-06-10 18:04] LABS: FREE T4 0.77 NG/DL (0.89-1.76)
[2023-06-10 18:06] LABS: PERCENT SATURATION 17.4 % (19.7-50.0)
[2023-06-10 19:05] LABS: FOLATE 18.8 NG/ML (>5.4)
== END ==
LOC: M LAB REF 16:43
PROVIDERS: ATTEND Nurse Practitioner Family
DX: R79.89 Other specified abnormal findings of blood chemistry (principal); D64.9 Anemia, unspecified

== ENCOUNTER → 2023-07-01 | Outpatient (CLI) | payer MEDICAID | LOC: M WHC 09:48 | PROVIDERS: ATTEND Nurse Practitioner Family | DX: R79.89 Other specified abnormal findings of blood chemistry (principal); E04.1 Nontoxic single thyroid nodule ==

== ENCOUNTER → 2023-07-01 | Outpatient (CLI) | payer MEDICAID | LOC: M WHC 10:04 | PROVIDERS: ATTEND Nurse Practitioner Family | DX: Z13.820 Encounter for screening for osteoporosis (principal) ==

== ENCOUNTER 2023-08-13 08:32 | Day surgery (SDC) | payer MEDICAID ==
[~2023-08-13] VITALS: Ht 175.3 cm; Wt 78.1 kg
[~2023-08-13 08:32] MED LIST changes: +FERR325T19 PO; +META0.52 PO; +SERO400T PO; +THERTAB52 PO
[2023-08-13] MEDS: NS 1,000 ML IV ONE (09:43)
[2023-08-13] MEDS ORDERED: propofoL 200 MG/20 ML VIAL As Ordered ONE (10:52)
[2023-08-13] MEDS ORDERED: LIDOCAINE 2% 100MG/5ML SDV (FOR ANES.) As Ordered ONE (10:52)
[2023-08-13 11:44] VITALS: BP 110/70; TEMP 97.2; O2SAT 96
== END 2023-08-13 11:46 | disposition home or self-care (01) ==
LOC: M OPP 08:32
PROVIDERS: ATTEND Internal Medicine Gastroenterology
DX: K51.911 Ulcerative colitis, unspecified with rectal bleeding (principal); K64.8 Other hemorrhoids; I11.0 Hypertensive heart disease with heart failure; I50.9 Heart failure, unspecified; K21.9 Gastro-esophageal reflux disease without esophagitis; Z79.899 Other long term (current) drug therapy; F31.9 Bipolar disorder, unspecified; Z87.891 Personal history of nicotine dependence; E78.00 Pure hypercholesterolemia, unspecified

== ENCOUNTER → 2023-08-30 | Outpatient (CLI) | payer MEDICAID ==
[2023-08-30 12:10] LABS: BASO # 0.1 10^3/uL (0.0-0.2); BASO % 0.7 % (0.0-1.0); EOS # 0.1 10^3/uL (0.0-0.5); EOS % 0.6 % (0.0-3.0); HEMATOCRIT 39.2 % (42.0-52.0); HEMOGLOBIN 13.1 g/dl (13.5-17.5); LYMPH # 1.8 10^3/uL (1.5-5.0); LYMPH % 22.5 % (24.0-44.0); MEAN CORPUSCULAR HEMOGLOBIN 30.1 pg (27.0-33.0); MEAN CORPUSCULAR HGB CONC 33.4 g/dl (32.0-36.5); MEAN CORPUSCULAR VOLUME 90.1 fl (80.0-96.0); MONO # 0.6 10^3/uL (0.0-0.8); MONO % 7.1 % (2.0-8.0); NEUTROPHILS # 5.6 10^3/uL (1.5-8.5); NEUTROPHILS % 68.9 % (36.0-66.0); PLATELET COUNT, AUTOMATED 291 10^3/uL (150-450); RED BLOOD COUNT 4.35 10^6/uL (4.30-6.10); WHITE BLOOD COUNT 8.2 10^3/uL (4.0-10.0)
[2023-08-30 12:18] LABS: ERYTHROCYTE SEDIMENTATION RATE 11 mm/hr (0-20)
[2023-08-30 12:32] LABS: C REACTIVE PROTEIN QUANTITATIV < 0.40 MG/DL (<1.0)
[2023-08-30 12:33] LABS: IRON (FE) 91 UG/DL (65-175); PERCENT SATURATION 29.9 % (19.7-50.0); TOTAL IRON BINDING CAPACITY 304 UG/DL (250-425)
[2023-08-30 12:34] LABS: ALBUMIN 3.9 G/DL (3.2-5.2); ALKALINE PHOSPHATASE 74 U/L (46-116); ALT/SGPT 12 U/L (7.0-40); AST/SGOT 13 U/L (<34); BILIRUBIN,DIRECT < 0.1 MG/DL (<0.4); BILIRUBIN,TOTAL 0.3 MG/DL (0.3-1.2); BLOOD UREA NITROGEN 13 MG/DL (9-23); CREATININE FOR GFR 0.77 MG/DL (0.70-1.30); GLOMERULAR FILTRATION RATE > 60.0 (>56); TOTAL PROTEIN 6.3 G/DL (5.7-8.2)
[2023-08-30 12:35] LABS: FERRITIN 39.3 NG/ML (10.5-307.3)
[2023-08-30 12:53] LABS: HEPATITIS B SURFACE ANTIGEN NEGATIVE (NEGATIVE)
== END ==
LOC: M WUC 08:29
PROVIDERS: ATTEND Internal Medicine Gastroenterology
DX: K62.5 Hemorrhage of anus and rectum (principal)

== ENCOUNTER → 2023-09-29 | Outpatient (CLI) | payer MEDICAID ==
[2023-09-29 09:39] LABS: BASO # 0.1 10^3/uL (0.0-0.2); BASO % 0.5 % (0.0-1.0); EOS # 0.1 10^3/uL (0.0-0.5); HEMATOCRIT 42.2 % (42.0-52.0); HEMOGLOBIN 13.8 g/dl (13.5-17.5); LYMPH # 1.9 10^3/uL (1.5-5.0); LYMPH % 20.9 % (24.0-44.0); MEAN CORPUSCULAR HEMOGLOBIN 30.1 pg (27.0-33.0); MEAN CORPUSCULAR HGB CONC 32.7 g/dl (32.0-36.5); MEAN CORPUSCULAR VOLUME 91.9 fl (80.0-96.0); MONO # 0.6 10^3/uL (0.0-0.8); MONO % 6.7 % (2.0-8.0); NEUTROPHILS # 6.4 10^3/uL (1.5-8.5); PLATELET COUNT, AUTOMATED 258 10^3/uL (150-450); RED BLOOD COUNT 4.59 10^6/uL (4.30-6.10); WHITE BLOOD COUNT 9.2 10^3/uL (4.0-10.0)
[2023-09-29 09:56] LABS: ALBUMIN 3.7 G/DL (3.2-5.2); ALKALINE PHOSPHATASE 60 U/L (46-116); ALT/SGPT < 9 U/L (7.0-40); AST/SGOT < 8 U/L (<34); BILIRUBIN,DIRECT 0.1 MG/DL (<0.4); BILIRUBIN,TOTAL 0.5 MG/DL (0.3-1.2); TOTAL PROTEIN 6.1 G/DL (5.7-8.2)
== END ==
LOC: M LAB 08:55
PROVIDERS: ATTEND Internal Medicine Gastroenterology
DX: K62.5 Hemorrhage of anus and rectum (principal)

== ENCOUNTER → 2023-10-11 | Outpatient (REF) | payer MEDICAID ==
[2023-10-11 14:10] LABS: BASO # 0.1 10^3/uL (0.0-0.2); BASO % 0.9 % (0.0-1.0); EOS # 0.1 10^3/uL (0.0-0.5); EOS % 0.8 % (0.0-3.0); HEMATOCRIT 41.4 % (42.0-52.0); HEMOGLOBIN 13.8 g/dl (13.5-17.5); LYMPH # 1.4 10^3/uL (1.5-5.0); LYMPH % 15.3 % (24.0-44.0); MEAN CORPUSCULAR HEMOGLOBIN 30.3 pg (27.0-33.0); MEAN CORPUSCULAR HGB CONC 33.3 g/dl (32.0-36.5); MONO # 0.5 10^3/uL (0.0-0.8); MONO % 5.6 % (2.0-8.0); NEUTROPHILS # 6.8 10^3/uL (1.5-8.5); NEUTROPHILS % 74.8 % (36.0-66.0); PLATELET COUNT, AUTOMATED 326 10^3/uL (150-450); RED BLOOD COUNT 4.55 10^6/uL (4.30-6.10); WHITE BLOOD COUNT 9.1 10^3/uL (4.0-10.0)
== END ==
LOC: M LAB REF 12:41
PROVIDERS: ATTEND Nurse Practitioner Family
DX: D64.9 Anemia, unspecified (principal)

== ENCOUNTER → 2024-02-20 | Outpatient (REF) | payer MEDICAID ==
[~2024-02-20] MED LIST changes: +ACET1TAB55 PO; +DESI13CR2 TOP; +GABA-1635 PO; -GABA800T4 PO; +MIRA3350 PO; +NAPR-1405 PO; -NAPR500T6 PO; +NEOM28OI EXT
[2024-02-20 19:19] LABS: BASO # 0.1 10^3/uL (0.0-0.2); BASO % 1.4 % (0.0-1.0); EOS # 0.1 10^3/uL (0.0-0.5); HEMATOCRIT 40.4 % (42.0-52.0); HEMOGLOBIN 13.7 g/dl (13.5-17.5); LYMPH # 1.1 10^3/uL (1.5-5.0); LYMPH % 22.4 % (24.0-44.0); MEAN CORPUSCULAR HEMOGLOBIN 30.4 pg (27.0-33.0); MEAN CORPUSCULAR HGB CONC 33.9 g/dl (32.0-36.5); MEAN CORPUSCULAR VOLUME 89.6 fl (80.0-96.0); MONO # 0.5 10^3/uL (0.0-0.8); MONO % 10.4 % (2.0-8.0); NEUTROPHILS # 3.3 10^3/uL (1.5-8.5); NEUTROPHILS % 64.4 % (36.0-66.0); PLATELET COUNT, AUTOMATED 289 10^3/uL (150-450); RED BLOOD COUNT 4.51 10^6/uL (4.30-6.10); WHITE BLOOD COUNT 5.1 10^3/uL (4.0-10.0)
[2024-02-20 19:21] LABS: TOTAL IRON BINDING CAPACITY 280 UG/DL (250-425)
[2024-02-20 19:22] LABS: ALBUMIN 4.3 G/DL (3.2-5.2); ALKALINE PHOSPHATASE 86 U/L (40-129); ALT/SGPT < 9 U/L (7.0-40); AST/SGOT < 8 U/L (<34); BILIRUBIN,TOTAL 0.2 MG/DL (0.3-1.2); BLOOD UREA NITROGEN 15 MG/DL (9-23); CALCIUM LEVEL 10.2 MG/DL (8.5-10.1); CARBON DIOXIDE LEVEL 30 MMOL/L (20-31); CHLORIDE LEVEL 108 MMOL/L (98-107); CHOLESTEROL LEVEL 157 MG/DL (<200); CHOLESTEROL RISK RATIO 4.55 (<5); CREATININE FOR GFR 0.75 MG/DL (0.70-1.30); GLOMERULAR FILTRATION RATE > 60.0 (>56); GLUCOSE, FASTING 84 MG/DL (60-100); HDL CHOLESTEROL 34.5 MG/DL (>40); IRON (FE) 41 UG/DL (65-175); LDL CHOLESTEROL 101.1 MG/DL (<100); MAGNESIUM LEVEL 1.8 MG/DL (1.8-2.4); NON-HDL-C 122.5 MG/DL; PERCENT SATURATION 14.6 % (19.7-50.0); POTASSIUM SERUM 4.3 MMOL/L (3.5-5.1); SODIUM LEVEL 144 MMOL/L (136-145); TOTAL PROTEIN 6.9 G/DL (5.7-8.2); TRIGLYCERIDES LEVEL 107 MG/DL (<150)
[2024-02-20 19:25] LABS: THYROID STIMULATING HORMONE 0.252 uIU/ML (0.55-4.78)
[2024-02-20 19:27] LABS: VITAMIN B12 LEVEL 408 PG/ML (211-911)
[2024-02-20 19:28] LABS: FOLATE 12.3 NG/ML (>5.4)
== END ==
LOC: M LAB REF 16:50
PROVIDERS: ATTEND Nurse Practitioner Family
DX: D64.9 Anemia, unspecified (principal); R79.89 Other specified abnormal findings of blood chemistry; E66.3 Overweight

== ENCOUNTER → 2024-06-03 | Outpatient (REF) | payer MEDICAID ==
[2024-06-03 15:09] LABS: BASO # 0.1 10^3/uL (0.0-0.2); EOS % 0.8 % (0.0-3.0); HEMATOCRIT 38.4 % (42.0-52.0); LYMPH # 1.2 10^3/uL (1.5-5.0); LYMPH % 24.3 % (24.0-44.0); MEAN CORPUSCULAR HEMOGLOBIN 30.9 pg (27.0-33.0); MEAN CORPUSCULAR HGB CONC 33.9 g/dl (32.0-36.5); MEAN CORPUSCULAR VOLUME 91.2 fl (80.0-96.0); MONO # 0.4 10^3/uL (0.0-0.8); NEUTROPHILS # 3.2 10^3/uL (1.5-8.5); NEUTROPHILS % 65.1 % (36.0-66.0); PLATELET COUNT, AUTOMATED 318 10^3/uL (150-450); RED BLOOD COUNT 4.21 10^6/uL (4.30-6.10); WHITE BLOOD COUNT 4.9 10^3/uL (4.0-10.0)
[2024-06-03 15:14] LABS: PERCENT SATURATION 26.7 % (19.7-50.0)
[2024-06-03 15:17] LABS: FREE T4 0.78 NG/DL (0.89-1.76); THYROID STIMULATING HORMONE 0.315 uIU/ML (0.55-4.78)
== END ==
LOC: M LAB REF 13:14
PROVIDERS: ATTEND Nurse Practitioner Family
DX: D64.9 Anemia, unspecified (principal); R79.89 Other specified abnormal findings of blood chemistry

== ENCOUNTER → 2024-08-05 | Outpatient (CLI) | payer MEDICAID ==
[~2024-08-05] MED LIST changes: -PRED50TA PO; +PRED50TA57 PO
== END ==
LOC: M RAD 10:33
PROVIDERS: ATTEND Nurse Practitioner Family
DX: R91.1 Solitary pulmonary nodule (principal); R79.89 Other specified abnormal findings of blood chemistry; E04.1 Nontoxic single thyroid nodule

== ENCOUNTER → 2024-08-27 | Outpatient (CLI) | payer MEDICAID ==
[~2024-08-27] MED LIST changes: +ISOVUE-370 76% 100ML VIAL As Ordered ONE
== END ==
LOC: M RAD 08:47
PROVIDERS: ATTEND Hospitalist
DX: R63.4 Abnormal weight loss (principal)
CPT/HCPCS: 74177; Q9967

== ENCOUNTER → 2024-12-30 | Outpatient (REF) | payer MEDICAID ==
[~2024-12-30] MED LIST changes: -ISOVUE-370 76% 100ML VIAL As Ordered ONE
[2024-12-30 13:32] LABS: ALT/SGPT 10 U/L (7.0-40); AST/SGOT 16 U/L (<34); CALCIUM LEVEL 9.6 MG/DL (8.5-10.1); CARBON DIOXIDE LEVEL 30 MMOL/L (20-31); CHLORIDE LEVEL 105 MMOL/L (98-107); CHOLESTEROL LEVEL 158 MG/DL (<200); CHOLESTEROL RISK RATIO 3.59 (<5); CREATININE FOR GFR 0.73 MG/DL (0.70-1.30); GLOMERULAR FILTRATION RATE > 90.0 (>56); LDL CHOLESTEROL 94.1 MG/DL (<100); NON-HDL-C 114.1 MG/DL; POTASSIUM SERUM 4.3 MMOL/L (3.5-5.1); SODIUM LEVEL 143 MMOL/L (136-145); TRIGLYCERIDES LEVEL 100 MG/DL (<150)
== END ==
LOC: M LAB REF 12:01
PROVIDERS: ATTEND Student in an Organized Health Care Education/Training Program
DX: Z68.21 Body mass index [BMI] 21.0-21.9, adult (principal); E78.5 Hyperlipidemia, unspecified